=== PATIENT | female | born 1975 | race Caucasian/White ===

== ENCOUNTER 2016-03-29 00:17 | Day surgery (SDC) | payer MEDICARE ==
[2016-03-29] VITALS (11 sets, daily range): BP systolic 86–104; BP diastolic 54–61; PULSE 59–69; RESP 14–24; O2SAT 93–98
[~2016-03-29] VITALS: Ht 157.5 cm; Wt 74.0 kg
[~2016-03-29 00:17] MED LIST: BUPR100T7 PO; CALC-846 PO; CHOL500050 PO; FLUD0.1T PO; MIDO5TAB PO; MUPI15CR11 TOP; SENN1TAB90 PO; SEVE800T7 PO
[2016-03-29 07:44] LABS: Mean Corpuscular Volume 92.2 fL (81-100)
[2016-03-29 08:01] LABS: INR 0.94 ratio
[2016-03-29] MEDS ORDERED: CLON0.1T PO (08:09)
--- NOTE | 2016-03-29 08:09 | NUR ---
Admitted for a tunnel catheter today for dialysis access - pt does peritoneal and is slated for abdominal surgery - plan to do tunnel dialysis instead of peritoneal dialysis.
--- NOTE | 2016-03-29 11:51 | NUR ---
Recovery completed in [facility] post tunnel catheter - dressing changed prior to D/C - tunnel catheter site looked at by Dr Parham prior to D/C from [facility]. Ok to D/C home - no new orders.
--- NOTE | 2016-03-29 12:00 | DRSVH ---
PROCEDURE: CV TUNNEL CATH PLCMNT 1. Sonographic guidance for venous access. 2. Conscious sedation for 30 minutes. 3. Right internal jugular vein tunneled hemodialysis catheter placement. 4. Fluoroscopic guidance for catheter placement. INDICATIONS: ESRD TECHNIQUE: The indications, alternatives, benefits, risks, and complications of the procedure were e xplained to the patient and any family members present. Informed written consent was obtained and pl aced in the chart. The patient was brought to the angiography suite, and conscious sedation was admi nistered intravenously by prison staff, while continuous cardiorespiratory monitoring was pe rformed. Maximum sterile barrier technique was employed per standard protocol, including hand hygiene, cap, ma sk, sterile gown and gloves, and 2% chlorhexidine. Sterile ultrasound probe cover was also utilized. 1% lidocaine was used for local anaesthesia. Under sonographic guidance, the right internal jugular vein was accessed with a Micropuncture set. An 0.035J wire was advanced into the vena cava. Subcuta neous tunnel was created within the right anterior chest wall, through which a 14.5 Swedish double lum en tunneled hemodialysis catheter was advanced. Following sequential venotomy tract dilation, the ca theter was advanced through the peel-away sheath and the tip was placed at the cavoatrial junction. Peel-away sheath was removed. Adequate flow was obtained through both lumens of the catheter. The v enotomy was closed with Dermabond, and the catheter was fastened to the skin with Ticron. Both lumen s were flushed with heparinized saline. The patient tolerated the procedure without difficulty and was in stable condition at the conclusion of the procedure. COMPARISON: [facility], , CV TUNNEL CATH PLCMNT, 04/15/2015, 8:47. FINDINGS: The right internal jugular vein is patent by ultrasound. Fluoroscopic imaging demonstrates tip of th e catheter at the cavoatrial junction. IMPRESSION: Right internal jugular vein tunneled hemodialysis catheter placement using sonographic and fluoroscop ic guidance. Dictated by: Sherry Parham M.D. on 03/29/2016 at 11:58 Approved by: Sherry Parham M.D. on 03/29/2016 at 11:58
[2016-03-29] MEDS ORDERED: fentaNYL-PF 50 mCg/mL 2 mL Inj ONE (13:47)
[2016-03-29] MEDS ORDERED: Heparin 1,000 Unit/mL 10 mL Inj ONE (13:47)
[2016-03-29] MEDS ORDERED: CeFAZolin 2 Gm/50 mL D5W Duplex Bag IV ONE (13:48)
[2016-03-29] MEDS ORDERED: 0.9% Sodium Chloride 250 ML ONE (13:48)
[2016-07-07] MEDS ORDERED: BUPR100T15 PO (11:59)
[2016-07-07] MEDS ORDERED: CHOL500050 PO (12:01)
[2016-07-07] MEDS ORDERED: CALC-984 PO (12:01)
== END 2016-03-29 23:59 | disposition home or self-care (01) ==
LOC: SOUO 00:17
PROVIDERS: ATTEND Radiology Vascular & Interventional Radiology
DX: N18.6 End stage renal disease (principal); D63.1 Anemia in chronic kidney disease; Z99.2 Dependence on renal dialysis
CPT/HCPCS: 36415; 36558; 76937; 77001; 80048; 85027; 85610; 85730; C1769; C1887; J1644; J2250

== ENCOUNTER 2016-05-07 15:34 | Inpatient (IN) | payer MEDICARE ==
[~2016-05-07] VITALS: Ht 157.5 cm; Wt 70.6 kg
[~2016-05-07 15:34] MED LIST changes: -BUPR100T7 PO; +CLON0.1T PO
[2016-05-07 15:48] VITALS: BP 78/52; PULSE 134; RESP 20; O2SAT 98
[2016-05-07 19:51] VITALS: BP 89/54; PULSE 104; RESP 20; O2SAT 100
--- NOTE | 2016-05-07 20:12 | DRSVH ---
PROCEDURE: X-RAY CHEST ONE VIEW, PORTABLE ([id number]) INDICATIONS: Sepsis TECHNIQUE: One view of the chest was acquired. COMPARISON: [facility], XA, CV TUNNEL CATH PLCMNT, 03/29/2016, 9:40. FINDINGS: Surgical changes and devices: The tunneled hemodialysis catheter appears retracted from its initial p osition in with the tip in the right atrium. The tip now likely rests within the distal SVC are at th e cavoatrial junction. Lungs and pleura: No pleural effusions or pneumothorax. Lungs are clear. Mediastinum: Mediastinal contours appear normal. Heart size is normal. Bones and chest wall: No suspicious bony lesions. Overlying soft tissues appear unremarkable. IMPRESSION: 1. No acute cardiopulmonary findings. 2. Findings suspicious for retracted hemodialysis catheter. If there is a history of dialysis dysfunc tion, nonemergent repositioning of the catheter may be helpful. Dictated by: Sherry Parham M.D. on 05/07/2016 at 20:08 Approved by: Sherry Parham M.D. on 05/07/2016 at 20:10
[2016-05-07 20:31] LABS: BASOPHILS % (AUTO) 0.6 % (0-3); EOSINOPHILS % (AUTO) 1.9 % (0-5); MONOCYTES % (AUTO) 9.4 % (4-12); Mean Corpuscular Hemoglobin 28.7 pg (27.0-35.0); NEUTROPHILS % (AUTO) 70.4 % (40-74); Platelet Count 137 bil/L (150-400)
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
[2016-05-07 21:02] LABS: TROPONIN T < 0.010 ug/L (0.0-0.011)
[2016-05-07 21:09] LABS: Magnesium 1.5 mg/dL (1.6-2.6); Phosphorus 2.3 mg/dL (2.5-4.9)
[2016-05-07] MEDS ORDERED: cefTRIAXone 2,000 mg Inj IM ONE ×2 (21:55→22:00)
[2016-05-07] MEDS ORDERED: _HYDROcodone-APAP 7.5-325/15mL 1 mL Bottle PO PRN (21:55)
[2016-05-07 22:13] VITALS: BP 87/59; PULSE 103; RESP 20; O2SAT 99
[2016-05-07] MEDS ORDERED: BENZ-12 PO (22:37)
[2016-05-07] MEDS ORDERED: HYDR15SO8 PO (22:37)
[2016-05-07 22:44] VITALS: BP 85/46; PULSE 103; RESP 24; O2SAT 100
[2016-05-07 22:54] VITALS: BP 85/46; PULSE 103; RESP 24; O2SAT 100
[2016-05-07] MEDS ORDERED: Vancomycin Dose per Pharmacist XX ONE (23:00)
[2016-05-07] MEDS ORDERED: Vancomycin Inj 1,500 MG in 0.9% Sodium Chloride 500 ML IV ONE (23:05)
[2016-05-07] MEDS ORDERED: Alum-Mag Hydrox-Simeth 30 mL Suspension PO PRN (23:35)
[2016-05-07] MEDS ORDERED: Polyethylene Glycol (PEG) 17 Gm Powder PO PRN (23:35)
[2016-05-07 23:38] VITALS: BP 89/60; PULSE 110; RESP 16; O2SAT 100
[2016-05-08] VITALS (12 sets, daily range): BP systolic 79–103; BP diastolic 48–70; PULSE 85–110; RESP 15–20; O2SAT 93–98
[2016-05-08] MEDS: Albuterol-Ipratropium 3 mL Inhalation Solution NEB SCH ×6 (00:30→20:59)
[2016-05-08] MEDS ORDERED: 0.9% Sodium Chloride 1,000 ML IV ONE (00:50)
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
[2016-05-08] MEDS ORDERED: SEVE800T7 PO (01:32)
[2016-05-08] MEDS ORDERED: OXYC5CAP4 PO (01:32)
[2016-05-08] MEDS ORDERED: FLUD0.1T PO (01:32)
[2016-05-08 03:14] LABS: BASOPHILS % (AUTO) 0.4 % (0-3); EOSINOPHILS % (AUTO) 2.6 % (0-5); MONOCYTES % (AUTO) 8.2 % (4-12); Mean Corpuscular Hemoglobin 28.5 pg (27.0-35.0); Mean Corpuscular Volume 92.1 fL (81-100); Platelet Count 137 bil/L (150-400)
[2016-05-08 03:53] LABS: Magnesium 1.5 mg/dL (1.6-2.6); Phosphorus 2.3 mg/dL (2.5-4.9)
--- NOTE | 2016-05-08 04:55 | NUR ---
Admit Pt arrived to floor from ED via bed at approx. 0050 to room 2006; report received from ED RN. All belongings transferred with pt; home meds sent to pharmacy. Pt reports 3/10 MCKEON on arrival, denies interventions. Vancomycin infusing to PIV. Pt independent in room. Admit documentation and med rec complete. Pt denied information on advanced directive. VSS. Tele SR 90s-100s.
[2016-05-08] MEDS: Cefepime 1,000 MG in Dextrose 5% Minibag Plus 50 ML IV SCH (07:57)
[2016-05-08] MEDS ORDERED: Magnesium Sulf 2 Gm/50mL Water 2 GM in IV Premix 1 EACH IV ONE (08:25)
[2016-05-08] MEDS ORDERED: Azithromycin Inj 500 MG in Dextrose 5% w/Vial Mate 250 ML IV SCH (08:30)
[2016-05-08] MEDS ORDERED: Cefepime Inj 2 GM in IV Premix 1 EACH IV SCH (08:30)
[2016-05-08] MEDS: guaiFENesin DM 200-20 mg/10 mL Syrup PO PRN ×2 (11:26→20:10)
--- NOTE | 2016-05-08 11:46 | NUR ---
PAN explained and signed. Copy of PAN and Medicare self administered medications provided to pt.
--- NOTE | 2016-05-08 15:09 | NUR ---
Social Work Note: Initial Assessment Data& Assessment: EMR reviewed. SW met with pt at bedside to discuss discharge planning, SW role explained. Snow Ha is a 40 year old female under observation for fever and cough beginning today 05/08/2016. Pt has Medicare and [employer] Supplemental insurance coverage. Pt sees her pipe coverer Dr. Puente for primary care and has HD at [facility] on Tuesdays, and Saturdays. Pt lives in [place] with her , children and in laws and is independent at baseline. Pt does not use any DME and drives at baseline. Pt does not have a HH or SNF hx. Pt does not have LTC insurance or VA benefits. Pt declines DPOA paperwork at this time. Pt explained her plans to pick her up or her father in law when she is medically ready for discharge. Pt is independent in her room and denies any other needs at this time. SW provided phone number on pt whiteboard. No other discharge needs identified at this time. SW to continue to follow if any needs arise. Plan: Anticipated discharge home via POV when medically ready. Pt is independent in her room and denies any other needs at this time. No other discharge needs identified at this time. SW to continue to follow if any needs arise. IZA Ward Addendum: 05/08/16 at 1514 by DANIEL METCALF Amended: Links added.
[2016-05-08 15:42] LABS: APPEARANCE,URINE HAZY (CLEAR,HAZY); COLOR,URINE YELLOW (YELLOW); OCCULT BLOOD,URINE MODERATE (NEGATIVE); UROBILINOGEN,URINE NORMAL (NORMAL)
--- NOTE | 2016-05-08 16:10 | PCM.PNMED ---
Subjective Date of Service May 08, 2016 Subjective Patient complains of chills and nurse reports that her temperature is greater than 103F. Patient has no other symptoms other than appearing to not feel well and is quite restless. Exam Vital Signs Vital Sign - Last Date Time Temp Pulse Resp B/P Pulse Ox O2 Delivery O2 Flow Rate FiO2 05/08/16 14:00 110 20 93 Room Air 05/08/16 12:29 37.9 101/70 Intake and Output 05/07/16 05/07/16 05/08/16 Cumulative From/Thru 15:00 23:00 07:00 05/07/16 15:48 - 05/08/16 04:57 Intake Total 240 ml 240 ml Output Total 0 ml 0 ml Balance 240 ml 240 ml Intake Oral 240 ml 240 ml Output Urine Total 0 ml 0 ml # Bowel Movements 0 0 Exam General: Patient does not appear to be comfortable she is somewhat restless in bed and is complaining of chills. HEENT: Head is atraumatic and normocephalic. Eyes: Pupils are equally round and reactive to light and accommodation. Extraocular muscles are intact. Sclera are white, anicteric. Subconjunctival mucosa is pale. Ears and nose are unremarkable. Oropharynx: There is no mucosal lesions, there is no thrush, there is no pharyngitis. Mucosa is pale. Neck: Is supple, there are no nodes, or masses or tenderness. Chest: Is clear to auscultation and percussion. There are no rales, rhonchi, wheezes or rubs. Hemodialysis catheter site is unremarkable with no evidence of tunneled infection or cellulitis. Heart: Rate is slightly tachycardic, rhythm is regular. There is no murmur, rub or gallop. Abdomen: Good bowel sounds are present. Abdomen is soft, nontender, no organomegaly or masses were appreciated. There is a very small opening of the recent abdominal surgical incision. There is no purulent drainage no erythema. Extremities: Are symmetrical and well perfused. There is no edema, there is no cellulitis, no rash. Neurologic: There are no focal neurological deficits. Cranial nerves II through XII are intact. There are no sensory or motor deficits. Psychiatric: Patients mood is calm and shows no sign of agitation. Genital: Deferred Rectal: Deferred Lab and Diagnostics Result Diagram: 05/08/16 0240 05/08/16 0240 Microbiology Respiratory viral PCR studies are negative. Blood cultures are pending X-Rays, CTs and MRIs X-RAY CHEST ONE VIEW, PORTABLE IMPRESSION: 1. No acute cardiopulmonary findings. 2. Findings suspicious for retracted hemodialysis catheter. If there is a history of dialysis dysfunction, nonemergent repositioning of the catheter may be helpful. Dictated by: Sherry Parham M.D. on 05/07/2016 at 20:08 Approved by: Sherry Parham M.D. on 05/07/2016 at 20:10 Assessment & Plan Snow Ha is a 40 year old female with past medical history significant for ESRD thought to be due to ureteral reflux in childhood currently on hemodialysis who presents to the ED with 2 days of productive cough, chills, and myalgias. Admitted for possible influenza versus healthcare associated pneumonia. # Possible healthcare associated pneumonia, present on admission. Active. Patient with 2 day history of productive cough, myalgias, and chills currently on hemodialysis. - Respiratory PCR is negative. - Urine pneumonia and Legionella pending. - Blood, sputum, and urine cultures sent and pending - Pro calcitonin elevated at 7.37. - Chest x-ray showed no acute cardiopulmonary process. - Patient received IM dose of ceftriaxone and vancomycin in the ED. - Empiric antibiotics started: Vancomycin and cefepime and we will continue ending culture results. Will repeat blood cultures today due to persistent high fever with one set of cultures from her hemodialysis catheter. - Duo nebs every 4 hours - Supplemental oxygen as needed. - Repeat labs in the morning. # Possible influenza, present on admission. Active. - Rapid flu screen negative. Respiratory PCR negative. - Tamiflu started prior to PCR returning due to patient's symptoms and comorbidities. However, as the PCR is negative will discontinue Tamiflu - Supportive therapy as in #1. # End-stage renal disease on hemodialysis, present on admission. Active. Thought to be secondary to ureteral reflux in childhood. Patient on peritoneal dialysis since 2012. Recently switched to hemodialysis because of panniculectomy on 04/15/16. Right IJ tunneled catheter. Hemodialysis conducted Monday, , Monday. - Monitor electrolytes. - Card Folder is Dr. Luu - Continue home medications. - We will consult inpatient nephrology service and Dr. Woodard has seen patient today. # Acute on chronic anemia, present on admission. Active. Patient denies any source of bleeding. - Baseline hemoglobin appears to be around 10. Hemoglobin on admission 8.2. Patient received Aranesp yesterday with hemodialysis and Dr. Woodard does not recommend any transfusion at this time. - Stool occult blood pending. - Repeat CBC in the morning. # Hypomagnesemia -We will give 2 g of magnesium sulfate IV today # Morbid Obesity -Status post gastric bypass surgery -Status post panniculectomy last month on 04/15/2016. -We will need to monitor incision for any sign of infection. Disposition: Patient is likely to remain here for more than 2 midnights for evaluation and treatment of very high fevers. Pain Evaluation: Adequate Pain Control VTE Prophylaxis: Other (held due to hemoglobin of 8.2) VTE Mechanical Devices: Intermittant Pneumatic CD Resuscitation Status: CPR: Attempt Resuscitation Pleasant HopeRobert goldman MD May 08, 2016 16:10
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
[2016-05-08] MEDS ORDERED: Heparin 1,000 Unit/mL Inj IV ONE (16:45)
--- NOTE | 2016-05-08 19:18 | NUR ---
Fever Patient alert and oriented x3, HANNA, up SBA to BR. Reported MCKEON with coughing, Tessalon pearls and Robitussin administered with 5mg Roxicodone and 650mg Tylenol-- reported relief. Patient temperature ranged between 100-103.5F, 650 tylenol brought 103F back down to 100F. RA, No chest pain, no abdominal pain, patient reported malaise and nausea at 1840 to PHARM TECH --no antiemetics available, discussed with NOC DANICA Medina.
[2016-05-08] MEDS ORDERED: cefTRIAXone Inj 2,000 MG in Dextrose 5% Minibag Plus 50 ML IV SCH (22:00)
[2016-05-09] VITALS (15 sets, daily range): BP systolic 90–157; BP diastolic 57–74; PULSE 57–115; RESP 15–24; O2SAT 91–99
[2016-05-09] MEDS: Albuterol-Ipratropium 3 mL Inhalation Solution NEB SCH ×5 (00:40→20:03)
--- NOTE | 2016-05-09 02:52 | NUR ---
Renvela Pt requested to have a dose of Renvela post HS snack at 2029. Pt stated she always take this medication post meals. Provider order states TID wm. Pharmacy called, pt only took lunch and evening dose. Pharmacy stated she is able to have a dose post snack. Dose given.
[2016-05-09 03:44] LABS: BASOPHILS % (AUTO) 0.3 % (0-3); EOSINOPHILS % (AUTO) 1.6 % (0-5); MONOCYTES % (AUTO) 9.6 % (4-12); Mean Corpuscular Hemoglobin 27.8 pg (27.0-35.0); Mean Corpuscular Volume 91.7 fL (81-100); NEUTROPHILS % (AUTO) 72.9 % (40-74); Platelet Count 103 bil/L (150-400)
--- NOTE | 2016-05-09 03:57 | NUR ---
Fibrile At 0000 vital signs. Pt had a temperature of 38.4. Pt given PRN tylenol 650mg. At 0355, temperature at 36.9. Continue to monitor.
--- NOTE | 2016-05-09 04:41 | PCM.PNMED ---
Subjective Date of Service May 09, 2016 Subjective Nurse called with Hgb 6.4 Nurse reporting the patient is asymptomatic. Nephrology recommended avoiding transfusion as the patient was a kidney transplant candidate Will pass the decision for transfusion to the day shift as patient does not appear to need emergent transfusion at this time Justin Blevins MD May 09, 2016 04:40
[2016-05-09 04:43] LABS: Magnesium 2.1 mg/dL (1.6-2.6); Phosphorus 3.2 mg/dL (2.5-4.9)
[2016-05-09] MEDS ORDERED: 0.9% Sodium Chloride 250 ML ONE (08:51)
[2016-05-09] MEDS: guaiFENesin DM 200-20 mg/10 mL Syrup PO PRN ×2 (09:20→20:29)
[2016-05-09] MEDS: Cefepime 1,000 MG in Dextrose 5% Minibag Plus 50 ML IV SCH (09:20)
[2016-05-09] MEDS ORDERED: diphenhydrAMINE 25 mg Capsule PO ONE (11:25)
--- NOTE | 2016-05-09 12:54 | NUR ---
Case Management: [facility] delivered and signed. Original placed in chart. Copy at bedside. Denise Cifuentes RN
[2016-05-09 13:16] LABS: Unsaturated Iron Binding 132.5 ug/dL
[2016-05-09] MEDS: Vancomycin Dose per Pharmacist XX SCH (13:45)
[2016-05-09] MEDS ORDERED: Vancomycin Serum Trough XX ONE (14:10)
--- NOTE | 2016-05-09 15:58 | PCM.PHAPRO ---
Progress Date of Service: May 09, 2016 Cough and flulike symptoms Vancomycin per Pharmacy: Indication: Possible bacteremia vs pneumonia- pt with fevers (103 deg), myalgias, cough Goal Vancomycin Level: 15-20 Age: 40 yo Weight: 71.2 kg Labs: WBC: 3.7 SrCr: N/A Procalcitonin: 7.4->9.5 (renal impairment possibly confounding) Micro: Blood cultures pending, MRSA nasal screen pending, culture from dialysis catheter tip pending Est CrCl: ~ Dialysis on //Mon Vancomycin Level: 21.5 mg/dL following vancomycin 1500 mg IV x 1 on 05/07 Assessment: Vancomycin level minimally supra-therapeutic. No further vancomycin today. Plan: Vancomycin 500 mg IV x 1 post dialysis on 05/10/16. Vancomycin random level with AM labs on 05/12/16. Pharmacy to continue to monitor antibiotic therapy. Thank You, Thuy Castaneda, Pharm D. Thuy Castaneda May 09, 2016 15:58
--- NOTE | 2016-05-09 17:07 | PCM.PNMED ---
Subjective Date of Service May 09, 2016 Subjective Patient is refusing blood transfusion if she hopes to be kidney transplant candidate soon. She states that she is asymptomatic and does not want a transfusion nor does she need a transfusion at this time. She has no chest pain , no shortness of breath, no dyspnea on exertion, and no other complaints. Exam Vital Signs Vital Sign - Last Date Time Temp Pulse Resp B/P Pulse Ox O2 Delivery O2 Flow Rate FiO2 05/09/16 15:39 91 16 99 Room Air 05/09/16 12:18 36.9 90/57 Intake and Output 05/08/16 05/08/16 05/09/16 Cumulative From/Thru 15:00 23:00 07:00 05/07/16 15:48 - 05/09/16 06:04 Intake Total 2367 ml 400 ml 3007 ml Output Total 125 ml 0 ml 125 ml Balance 2242 ml 400 ml 2882 ml Intake Oral 800 ml 400 ml 1440 ml IV Total 1567 ml 1567 ml Output Urine Total 125 ml 0 ml 125 ml # Bowel Movements 0 0 Exam General: Patient appears more comfortable today and less agitated.. HEENT: Head is atraumatic and normocephalic. Eyes: Pupils are equally round and reactive to light and accommodation. Extraocular muscles are intact. Sclera are white, anicteric. Subconjunctival mucosa is pale. Ears and nose are unremarkable. Oropharynx: There is no mucosal lesions, there is no thrush, there is no pharyngitis. Mucosa is pale. Neck: Is supple, there are no nodes, or masses or tenderness. Chest: Is clear to auscultation and percussion. There are no rales, rhonchi, wheezes or rubs. Hemodialysis catheter site itself is unremarkable. However, just above that at potentially the right subclavian vein insertion site incision and some. Drainage previously and now has some scab formation over it. Band-Aid has been removed. There is no evidence of cellulitis around this around the Tylenol of the catheter.. Heart: Rate is slightly tachycardic, rhythm is regular. There is no murmur, rub or gallop. Abdomen: Good bowel sounds are present. Abdomen is soft, nontender, no organomegaly or masses were appreciated. There is a very small opening of the recent abdominal surgical incision. This is very superficial There is no purulent drainage and no erythema. Extremities: Are symmetrical and well perfused. There is no edema, there is no cellulitis, no rash. Neurologic: There are no focal neurological deficits. Cranial nerves II through XII are intact. There are no sensory or motor deficits. Psychiatric: Patients mood is calm and shows no sign of agitation. Genital: Deferred Rectal: Deferred Lab and Diagnostics Result Diagram: 05/09/16 1548 05/09/16 0303 Microbiology Respiratory viral PCR studies are negative. Blood cultures are pending Name: SNOW ROMERO Age/Sex: 40/F Attend Dr: Justin Blevins MD Acct: [id number] Unit: [id number] Status: ADM IN Location: [facility] 2005-03 Re05/08/16 Disch: Specimen: [id number] Collected: 05/08/16 Status: RES Req#: [id number] Received: 05/09/16 Source: CATH SITE Sp Desc : Subm Dr: Robert Huizar MD Ordered: CS & JAMES & RUBEN Comments: Collected by Nurse/Unit? Y/N Y Comment: Hemodialysis catheter site Procedure Result Verified Site Microbiology CRUZ GS (GRAM STAIN) Final 05/09/16-1044 GRAM STAIN RESULT NO POLYS NO ORGANISMS SEEN RARE EPITHELIAL CELLS X-Rays, CTs and MRIs X-RAY CHEST ONE VIEW, PORTABLE IMPRESSION: 1. No acute cardiopulmonary findings. 2. Findings suspicious for retracted hemodialysis catheter. If there is a history of dialysis dysfunction, nonemergent repositioning of the catheter may be helpful. Dictated by: Sherry Parhma M.D. on 05/07/2016 at 20:08 Approved by: Sherry Parham M.D. on 05/07/2016 at 20:10 Assessment & Plan Snow Romero is a 40 year old female with past medical history significant for ESRD thought to be due to ureteral reflux in childhood currently on hemodialysis who presents to the ED with 2 days of productive cough, chills, and myalgias. Admitted for possible influenza versus healthcare associated pneumonia. # Possible healthcare associated pneumonia, present on admission. Active. Patient with 2 day history of productive cough, myalgias, and chills currently on hemodialysis. - Respiratory PCR is negative. - Urine L. pneumonia antigen is pending and Strep pneumonia antigen is negative. - Blood, sputum, and urine cultures sent and pending - Pro calcitonin elevated at 7.37. - Chest x-ray showed no acute cardiopulmonary process. - Patient received IM dose of ceftriaxone and vancomycin in the ED. - Empiric antibiotics started: We will continue Vancomycin and cefepime pending culture results. We repeated blood cultures yesterday due to persistent high fever with one set of cultures from her hemodialysis catheter. - Duo nebs every 4 hours - Supplemental oxygen as needed. - Repeat labs in the morning. # Possible influenza, present on admission. Active. - Rapid flu screen negative. Respiratory PCR negative. - Tamiflu started prior to PCR returning due to patient's symptoms and comorbidities. However, as the PCR is negative will discontinue Tamiflu - Continue supportive therapy. # End-stage renal disease on hemodialysis, present on admission. Active. Thought to be secondary to ureteral reflux in childhood. Patient on peritoneal dialysis since 2012. Recently switched to hemodialysis because of panniculectomy on 04/15/16. Right IJ tunneled catheter placed. Hemodialysis conducted Monday, , Monday. - Monitor electrolytes. - Delivery Specialist is Dr. Luu - Continue home medications. - We have consult inpatient nephrology service and Dr. Woodard has seen the patient. Patient likely will receive hemodialysis tomorrow on Monday, 2016. # Acute on chronic anemia, present on admission. Active. Patient denies any source of bleeding. - Baseline hemoglobin appears to be around 10. Hemoglobin on admission 8.2. Patient received Aranesp 05/07/[address] Woodard does not recommend any transfusion at this time. - Stool occult blood pending. - Repeat CBC in the morning. # Hypomagnesemia -We gave 2 g of magnesium sulfate IV on 05/08/2016 # Morbid Obesity -Status post gastric bypass surgery -Status post panniculectomy last month on 04/15/2016. -We will need to monitor incision for any sign of infection. Disposition: Patient is still having fevers and will continue IV antibiotics and await culture results. Plan for hemodialysis tomorrow. Pain Evaluation: Adequate Pain Control VTE Prophylaxis: Other (held due to hemoglobin of 8.2) VTE Mechanical Devices: Intermittant Pneumatic CD Resuscitation Status: CPR: Attempt Resuscitation HavreRobert MD May 09, 2016 17:07
--- NOTE | 2016-05-09 17:09 | PCM.PNMED ---
Subjective Date of Service May 09, 2016 Subjective Patient seen today in her room. It is concerning that her hemoglobin continues to drop to a level today of 6.4. Because she is being worked up for transplant she is rightfully concerned about avoiding any type of antigenic stimulation such as a blood transfusion unless absolutely necessary. I have contacted the transplant wet machine cutter at [facility] and he agreed that in light of he rapidly dropping hemoglobin a single unit of PRBCs is indicated. I am concerned as with a hemoglobin of 6.4 she has no reserve in case she has a new source of bleeding. In discussing the case with the patient states that several months ago she was found to have several ulcers in her stomach. She had a gastric bypass surgery several years ago and has lost a considerable amount of weight. Last month she underwent a panniculectomy and this is been healing well. She denies any pyrosis, melena, or frequent use of nonsteroidal anti-inflammatories. She does feel quite fatigued with even the most minimal effort and states that she feels like she "cannot take a deep breath". I will go ahead and give her 1 unit of leukocyte poor red blood cells today and I would like to have GI take a look at her and see if she has an identifiable source of a low hemoglobin. I also obtained an iron /TIBC and her transferrin saturation is 17% and initial dose of intravenous iron. Exam Vital Signs Vital Sign - Last Date Time Temp Pulse Resp B/P Pulse Ox O2 Delivery O2 Flow Rate FiO2 05/09/16 16:42 36.7 115 16 94/57 99 Room Air Intake and Output 05/08/16 05/08/16 05/09/16 Cumulative From/Thru 15:00 23:00 07:00 05/07/16 15:48 - 05/09/16 06:04 Intake Total 2367 ml 400 ml 3007 ml Output Total 125 ml 0 ml 125 ml Balance 2242 ml 400 ml 2882 ml Intake Oral 800 ml 400 ml 1440 ml IV Total 1567 ml 1567 ml Output Urine Total 125 ml 0 ml 125 ml # Bowel Movements 0 0 Exam Patient has a sallow complexion and markedly pale sclera. Neck is supple without adenopathy thyromegaly or jugular venous distention. Lungs were clear to auscultation. Heart was regular rhythmical somewhat tachycardia. Abdomen is soft with diminished bowel sounds. There is no tenderness noted. Extremities do not show any evidence of any clubbing cyanosis or edema. Lab and Diagnostics Result Diagram: 05/09/16 1548 05/09/16 0302 Microbiology Respiratory viral PCR studies are negative. Blood cultures are pending X-Rays, CTs and MRIs X-RAY CHEST ONE VIEW, PORTABLE IMPRESSION: 1. No acute cardiopulmonary findings. 2. Findings suspicious for retracted hemodialysis catheter. If there is a history of dialysis dysfunction, nonemergent repositioning of the catheter may be helpful. Dictated by: Sherry Parham M.D. on 05/07/2016 at 20:08 Approved by: Sherry Parham M.D. on 05/07/2016 at 20:10 Assessment & Plan Impression #1 end-stage renal disease dialysis dependent #2 acute anemia with possible GI blood source #3 chronic anemia secondary to end-stage renal disease #4 hypertension with hypertensive heart disease and hypertensive nephrosclerosis Recommendations #1 as noted above I will go ahead and give her 1 unit of leukocyte poor packed cells. I spoke with Dr. Real from and he will se her tomorrow AM. I will also give her a dose of intravenous iron with dialysis tomorrow. VTE Prophylaxis: Other (held due to hemoglobin of 8.2) VTE Mechanical Devices: Intermittant Pneumatic CD Resuscitation Status: CPR: Attempt Resuscitation Time spent Total time inclusing 2 visits with the patient,3 phone conversations with [facility], the floor resident and Dr. Real 1 hour and 20 min. Valeriano Argueta DO May 09, 2016 17:09
--- NOTE | 2016-05-09 18:49 | NUR ---
Respiratory/MCKEON/Cough Patient alert and oriented x3, up SBA in the room, saline locked, tolerating PO intake well but has decreased appetite. No n/v, BP stable, Afebrile. Patient reported some concern with constipation -- patient aware she has Miralax and Senna PRN, none requested by patient this shift. At approx 1500, patient reported to INSTRUMENT REPAIRER "shallow and fast" respiratory rate. Patient denied SOB, stating "I just feel like I can't take a deep breath" -- denies anxiety, reports mild SOB at rest that she states she did not have yesterday. Patient has persistent dry cough throughout shift, Tessalon bianca and Robitussin given x1, tylenol given x1, reports moderate relief. Patient develops MCKEON with persistent cough, no sputum.
[2016-05-09] MEDS ORDERED: diphenhydrAMINE 25 mg Capsule PO PRN (23:55)
[2016-05-10] VITALS (16 sets, daily range): BP systolic 90–130; BP diastolic 61–87; PULSE 76–95; RESP 16–20; O2SAT 93–99
[2016-05-10] MEDS: Albuterol-Ipratropium 3 mL Inhalation Solution NEB SCH ×7 (00:01→23:09)
[2016-05-10] MEDS ORDERED: 0.9% Sodium Chloride 250 ML ONE (01:15)
--- NOTE | 2016-05-10 05:25 | NUR ---
Blood transfusion Tolerated blood transfusion without problems. Has been afebrile this shift. C/o headache and cough at start of shift. Relieved with cough meds and pain meds. No further complaints.
[2016-05-10 06:00] LABS: BASOPHILS % (AUTO) 0.3 % (0-3); EOSINOPHILS % (AUTO) 10.8 % (0-5); MONOCYTES % (AUTO) 10.3 % (4-12); Mean Corpuscular Hemoglobin 28.6 pg (27.0-35.0); Mean Corpuscular Volume 91.4 fL (81-100); NEUTROPHILS % (AUTO) 52.9 % (40-74); Platelet Count 115 bil/L (150-400)
[2016-05-10] MEDS: Vancomycin Dose per Pharmacist XX SCH (08:30)
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
--- NOTE | 2016-05-10 14:00 | PCM.PNMED ---
Subjective Date of Service May 10, 2016 Subjective Patient feels a bit better after receiving a unit of blood. Her hemoglobin today has risen to 7.3. She looks more comfortable than his has less conversational dyspnea. She denies any chest pain or lower extremity edema. Her appetite is fair. Creatinine 10.8, -11 was 23. Exam Vital Signs Vital Sign - Last Date Time Temp Pulse Resp B/P Pulse Ox O2 Delivery O2 Flow Rate FiO2 05/10/16 12:06 36.9 95 18 102/61 97 Room Air Intake and Output 05/09/16 05/09/16 05/10/16 Cumulative From/Thru 15:00 23:00 07:00 05/07/16 15:48 - 05/10/16 05:14 Intake Total 880 ml 372 ml 4259 ml Output Total 300 ml 0 ml 425 ml Balance 580 ml 372 ml 3834 ml Intake Oral 880 ml 0 ml 2320 ml IV Total 25 ml 1592 ml Packed Cells 347 ml 347 ml Output Urine Total 300 ml 0 ml 425 ml # Bowel Movements 0 0 Exam Sclera are pale. Neck is supple without adenopathy thyromegaly or jugular venous distention. Lungs are clear to auscultation. Heart is regular rhythmic with a soft systolic murmur. Soft without any tenderness or rebound guarding masses or hepatosplenomegaly. 70/20 evidence of any clubbing cyanosis or edema. Lab and Diagnostics Result Diagram: 05/10/1653605/10/16536 Microbiology Respiratory viral PCR studies are negative. Blood cultures are pending Name: ARLENE ROMERO Age/Sex: 40/F Attend Dr: Justin Blevins MD Acct: [id number] Unit: [id number] Status: ADM IN Location: [facility] 2005-03 Re05/08/16 Disch: Specimen: [id number] Collected: 05/08/16 Status: RES Req#: [id number] Received: 05/09/16 Source: CATH SITE Sp Desc : Subm Dr: Robert Huizar MD Ordered: CS & ANAC & GS Comments: Collected by Nurse/Unit? Y/N Y Comment: Hemodialysis catheter site Procedure Result Verified Site Microbiology [facility] GS (GRAM STAIN) Final 05/09/16 GRAM STAIN RESULT NO POLYS NO ORGANISMS SEEN RARE EPITHELIAL CELLS X-Rays, CTs and MRIs X-RAY CHEST ONE VIEW, PORTABLE IMPRESSION: 1. No acute cardiopulmonary findings. 2. Findings suspicious for retracted hemodialysis catheter. If there is a history of dialysis dysfunction, nonemergent repositioning of the catheter may be helpful. Dictated by: Sherry Parham M.D. on 05/07/2016 at 20:08 Approved by: Sherry Parham M.D. on 05/07/2016 at 20:10 Assessment & Plan Impression #1 end-stage renal disease dialysis dependent #2 acute anemia with possible GI blood source #3 chronic anemia secondary to end-stage renal disease #4 hypertension with hypertensive heart disease and hypertensive nephrosclerosis Recommendations #1 patient was seen in her room and is currently being dialyzed for 4 hours on a revaclear max dialyzer, 3 potassium bath, no heparin, 2-3 L of fluid removed and will give her 60 mg of Aranesp. VTE Prophylaxis: Other (held due to hemoglobin of 8.2) VTE Mechanical Devices: Intermittant Pneumatic CD Resuscitation Status: CPR: Attempt Resuscitation Valeriano Argueta DO May 10, 2016 14:00
--- NOTE | 2016-05-10 15:46 | NUR ---
Social Work Note: Continued Discharge Planning Data& Assessment: Per MD, pt is not medically ready for discharge at this time. SW met with pt at bedside to confirm discharge plan and assess for any unmet needs. Pt has a colonoscopy scheduled for tomorrow. Pt is hopeful to be discharged in the next 1-2 days. Pt confirmed plan to return home when medically ready via POV. Pt denies any other needs at this time. SW to continue to follow if any needs arise. Plan: Anticipated discharge home via POV when medically ready. Pt denies any other needs at this time. SW to continue to follow if any needs arise. IZA Ward
--- NOTE | 2016-05-10 15:48 | NUR ---
NUTRITION ASSESSMENT: ASSESS: Pt is a 40yo F admitted for possible influenza and pneumonia. Pt has ESRD and is receiving dialysis. Nephrology is following. Pt had gastric bypass surgery in 2014. She reported that she has intentionally lost ~95lbs x2 years. She reported eating smaller, more frequent meals and always stops eating when she gets full. She reported that she has never had to follow the renal diet. Her K, phos and na are all wnl. She is on CL diet today in preparation for colonoscopy tomorrow for possible GI bleed. Prior to CL diet order she was on a General diet. Pt reported having an appetite but she just doesn't like the hospital food. She typically will drink Premier protein shakes and protein bars when she is at home. PMHx: ESRD, Anemia, GERD, constipation, Gastric bypass surgery in 2014, panniculectomy 04/15/2016 DIET: CL, PO 25-90% LABS: Reviewed. Bun 49, Propellant Assembler 10.82, Ca 6.7, Alb 3.2 MEDICATIONS: Reviewed. Senna, Vancomycin NUTRITION FOCUSED PHYSICAL ASSESSMENT: GI symptoms / stool: 0 BM, pt has chronic constipation, receiving Senna Wolfgang: 18, Skin Integrity: no major issues, pt with loose skin on arms d/t wt loss. ANTHROPOMETRICS: Current Wt: 71.9kg, BMI:29kg/m2, Admit weight: 70.5kg. Pt has intentionally lost ~95lbs x2 years s/p gastric bypass surgery. IBW: 50kg ESTIMATED NEEDS: Dialysis Calories: 2130-2490kcal/day (30-35kcal/kg) Protein: 85-140g/day (1.2-2.0g/kg) NUTRITION DIAGNOSIS: 1) Increased nutrient needs related to ESRD as evidence by pt on chronic dialysis INTERVENTION: 1) Discussed importance of getting enough protein while on dialysis (pt has never followed renal diet, and labs are wnl) 2) Encourage small frequent meals and once diet is advanced from CL diet, encouraged pt to have family bring in premier protein shakes to drink per pt preference (she does not like nepro) 3) Will send Gelatein on all trays per pt preference to help increase protein intake MONITOR/EVALUATE: PO intake, diet advance, GI, labs, wt, supps ok?, POC, nutrition status. Will continue to monitor per moderate nutrition risk guidelines.
--- NOTE | 2016-05-10 16:17 | NUR ---
Dialysis note 4 hr HD tx. 2000ml net UF removed. UF rate adjusted for BP stability. SBP in the 80's-100's. Off BP 112/67 HR 84. QB 500 thru R tunn catheter. See DTR for complete vitals. Pt rested comfortably thru tx. Catheter exit site care per protocol/dwelled with 1000/1 U Heparin and secured.
[2016-05-10] MEDS ORDERED: VANCOMYCIN IV ONE (17:00)
[2016-05-10] MEDS ORDERED: Vancomycin Inj 500 MG in 0.9% Sodium Chloride 100 ML IV ONE (17:00)
[2016-05-10] MEDS ORDERED: PEG/Electrolytes 4,000 mL Solution PO SCH (18:30)
[2016-05-10] MEDS: Cefepime 1,000 MG in Dextrose 5% Minibag Plus 50 ML IV SCH (18:31)
--- NOTE | 2016-05-10 21:52 | PCM.PNMED ---
Subjective Date of Service May 10, 2016 Subjective Patient has no further fever. She has no further chills. She has no nausea, or vomiting, or diarrhea. Exam Vital Signs Vital Sign - Last Date Time Temp Pulse Resp B/P Pulse Ox O2 Delivery O2 Flow Rate FiO2 05/10/16 19:59 37.1 87 20 124/78 97 Room Air Intake and Output 05/09/16 05/09/16 05/10/16 Cumulative From/Thru 15:00 23:00 07:00 05/07/16 15:48 - 05/10/16 05:14 Intake Total 880 ml 372 ml 4259 ml Output Total 300 ml 0 ml 425 ml Balance 580 ml 372 ml 3834 ml Intake Oral 880 ml 0 ml 2320 ml IV Total 25 ml 1592 ml Packed Cells 347 ml 347 ml Output Urine Total 300 ml 0 ml 425 ml # Bowel Movements 0 0 Exam General: Patient was seen on hemodialysis and appears quite comfortable... HEENT: Head is atraumatic and normocephalic. Eyes: Pupils are equally round and reactive to light and accommodation. Extraocular muscles are intact. Sclera are white, anicteric. Subconjunctival mucosa is pale. Ears and nose are unremarkable. Oropharynx: There is no mucosal lesions, there is no thrush, there is no pharyngitis. Mucosa is pale. Neck: Is supple, there are no nodes, or masses or tenderness. Chest: Is clear to auscultation and percussion. There are no rales, rhonchi, wheezes or rubs. Hemodialysis catheter site itself is unremarkable. However, just above that at potentially the right subclavian vein insertion site incision and some scab formation over it. Band-Aid has been removed. There is no evidence of cellulitis around this site, or around the insertion site of the catheter.. Heart: Rate is slightly tachycardic, rhythm is regular. There is no murmur, rub or gallop. Abdomen: Good bowel sounds are present. Abdomen is soft, nontender, no organomegaly or masses were appreciated. There is a very small opening of the recent abdominal surgical incision. This is very superficial There is no purulent drainage and no erythema. Extremities: Are symmetrical and well perfused. There is no edema, there is no cellulitis, no rash. Neurologic: There are no focal neurological deficits. Cranial nerves II through XII are intact. There are no sensory or motor deficits. Psychiatric: Patients mood is calm and she shows no sign of agitation. Genital: Deferred Rectal: Deferred Lab and Diagnostics Result Diagram: 05/10/1653605/10/16536 Microbiology Respiratory viral PCR studies are negative. Blood cultures are pending Name: SNOW ROMERO Age/Sex: 40/F Attend Dr: Justin Blevins MD Acct: [id number] Unit: [id number] Status: ADM IN Location: [facility] 2005-03 Re05/08/16 Disch: Specimen: [id number] Collected: 05/08/16 Status: RES Req#: [id number] Received: 05/09/16 Source: CATH SITE Sp Desc : Subm Dr: Robert Huizar MD Ordered: CS & ANAC & GS Comments: Collected by Nurse/Unit? Y/N Y Comment: Hemodialysis catheter site Procedure Result Verified Site Microbiology [facility] GS (GRAM STAIN) Final 05/09/16-1044 GRAM STAIN RESULT NO POLYS NO ORGANISMS SEEN RARE EPITHELIAL CELLS X-Rays, CTs and MRIs X-RAY CHEST ONE VIEW, PORTABLE IMPRESSION: 1. No acute cardiopulmonary findings. 2. Findings suspicious for retracted hemodialysis catheter. If there is a history of dialysis dysfunction, nonemergent repositioning of the catheter may be helpful. Dictated by: Sherry Parham M.D. on 05/07/2016 at 20:08 Approved by: Sherry Parham M.D. on 05/07/2016 at 20:10 Assessment & Plan Snow Romero is a 40 year old female with past medical history significant for ESRD thought to be due to ureteral reflux in childhood currently on hemodialysis who presents to the ED with 2 days of productive cough, chills, and myalgias. Admitted for possible influenza versus healthcare associated pneumonia. # Possible healthcare associated pneumonia, present on admission. Active. Patient with 2 day history of productive cough, myalgias, and chills currently on hemodialysis. - Respiratory PCR is negative. - Urine L. pneumonia antigen is pending and Strep pneumonia antigen is negative. - Blood, sputum, and urine cultures sent and are unrevealing so far - Pro calcitonin elevated at 7.37 on admission. - Chest x-ray showed no acute cardiopulmonary process. - Patient received IM dose of ceftriaxone and vancomycin in the ED. - Empiric antibiotics started: We will continue Vancomycin and cefepime pending culture results. We repeated blood cultures yesterday due to persistent high fever with one set of cultures from her hemodialysis catheter. - Duo nebs every 4 hours - Supplemental oxygen as needed. - Repeat labs in the morning. # Possible influenza, present on admission. Active. - Rapid flu screen negative. Respiratory PCR negative. - Tamiflu started prior to PCR returning due to patient's symptoms and comorbidities. However, as the PCR is negative will discontinue Tamiflu - Continue supportive therapy. # End-stage renal disease on hemodialysis, present on admission. Active. Patient is currently being dialyzed for 4 hours on a revaclear max dialyzer, 3 potassium bath, no heparin, 2-3 L of fluid removed. Thought to be secondary to ureteral reflux in childhood. Patient on peritoneal dialysis since 2012. Recently switched to hemodialysis because of panniculectomy on 04/15/16. Right IJ tunneled catheter placed. Hemodialysis conducted Monday, , Monday. - Monitor electrolytes. - Fibre Cement [place] is Dr. Luu - Continue home medications. - We have consult inpatient nephrology service and Dr Argueta's help. # Acute on chronic anemia, present on admission. Active. Patient denies any source of bleeding. - Baseline hemoglobin appears to be around 10. Hemoglobin on admission 8.2. Patient received Aranesp 05/07/2016 with hemodialysis. She received another 60 mg of Aranesp with dialysis today - Patient received 1 unit of leuko-poor packed red blood cells - Appreciate Dr. Reymundo Real's GI consult and patient is to have an EGD and colonoscopy tomorrow. # Hypomagnesemia -We gave 2 g of magnesium sulfate IV on 05/08/2016 # Morbid Obesity -Status post gastric bypass surgery -Status post panniculectomy last month on 04/15/2016. -We will need to monitor incision for any sign of infection. Disposition: Patient to continue on IV antibiotics and will monitor for further fevers. Due to anemia appreciate Dr. Reymundo Real's consult and patient is to go for EGD and colonoscopy tomorrow. Pain Evaluation: Adequate Pain Control VTE Prophylaxis: Other (held due to hemoglobin of 8.2) VTE Mechanical Devices: Intermittant Pneumatic CD Resuscitation Status: CPR: Attempt Resuscitation Robert Huizar MD May 10, 2016 21:52
[2016-05-10] MEDS: Pantoprazole 4 mg/mL 10 mL Inj IVPUSH SCH (23:12)
[2016-05-11] VITALS (12 sets, daily range): BP systolic 73–119; BP diastolic 46–79; PULSE 74–97; RESP 12–20; O2SAT 93–99
[2016-05-11 03:47] LABS: BASOPHILS % (AUTO) 0.3 % (0-3); EOSINOPHILS % (AUTO) 9.5 % (0-5); MONOCYTES % (AUTO) 12.5 % (4-12); Mean Corpuscular Hemoglobin 28.9 pg (27.0-35.0); Mean Corpuscular Volume 91.5 fL (81-100); NEUTROPHILS % (AUTO) 55.1 % (40-74); Platelet Count 138 bil/L (150-400)
--- NOTE | 2016-05-11 06:36 | NUR ---
Colyte/Urine Test Pt encouraged throughout night to drink colyte in preparation for procedure today. Pt able to finish this around 0330. Pt instructed to stay NPO after this, pt had clear liquid diet before that. Pt informed of order to have urine sent for test, pt refused w/ concerns for cost and stated she had her tubes tied as well as surgery last month and has not been sexually active since. Pt preferred to speak to physician in am before having urine test.
[2016-05-11] MEDS: Vancomycin Dose per Pharmacist XX SCH (08:30)
[2016-05-11] MEDS: Pantoprazole 4 mg/mL 10 mL Inj IVPUSH SCH (08:36)
[2016-05-11] MEDS ORDERED: 0.9% Sodium Chloride 250 ML ONE (08:54)
[2016-05-11] MEDS: Cefepime 1,000 MG in Dextrose 5% Minibag Plus 50 ML IV SCH (08:58)
[2016-05-11] MEDS: Lactated Ringer's 1,000 ML IV ONE ×2 (10:58→11:05)
--- NOTE | 2016-05-11 11:14 | PCM.HPANE ---
Patient Data Surgeon Admitting Provider:Justin Blevins MD Attending Provider:Justin Blevins MD Primary Care Physician:Cedrick Hines MD Other Provider: Reason for Visit Fever,Cough Ht/WT & BMI Height (Feet): 5 Height (Inches): 2.00 Weight (Kilograms): 70.600 Body Mass Index 28.00 Allergies Coded Allergies: gentamicin (Verified Allergy, Severe, SPECIFICIALLY LISTED FROM 08/17 CREAM...RASH, 03/29/16) Past Anesthesia History Anesthesia History: Denies:: Abnormal Airway, Anesthesia Reactions, Difficult Intubation, Fam Anesthesia Reaction, Fam Malignant Hypertherm, Malignant Hyperthermia Diabetes History Hx Diabetes?: No MRSA MRSA: No Medications Active Scripts Hydrocodone-Acetaminophen 7.5-325/15 mL 15 Ml Solution5-7.5 Ml PO Q4 PRN For Cough #100 ML Ref 0 Prov:Donato Al MD 05/07/16 Benzonatate (Tessalon Perle)100 Mg [id number] Mg PO TID PRN For Cough #30 CAPSULE Ref 1 Prov:Donato Al MD 05/07/16 Reported Medications oxyCODONE 5 Mg Kcnsinr50 Mg PO Q4H PRN For Pain Ref 0 05/08/16 Sevelamer Carbonate (Renvela)800 Mg Tablet1,600 Mg PO TIDWM 90 Days 05/08/16 Fludrocortisone Acetate 0.1 Mg Tablet0.2 Mg PO UD PRN For Hypotension 05/08/16 Sennosides/Docusate Sodium (Senna-Docusate Sodium Tablet)1 Each Tablet1-2 Each PO DAILY 03/25/16 Cholecalciferol (Vitamin D3) (Vitamin D)50,000 Unit Xydbtck65,000 Unit PO , Mon,Sun 03/25/16 Midodrine 5 Mg Tablet2 Tab PO TID PRN bp 10/18/14 Calcium Carbonate/Mag Hydrox (Antacid Chewable Tablet)1 Each Tab.[email or web address] Each PO DAILY takes tums with meals for a total of 8-10 a day with meals and 4 tablets at bedtime 10/18/14 Discontinued Reported Medications Clonidine 0.1 Mg Tablet0.1 Mg PO HS Ref 0 03/29/16 Fludrocortisone Acetate 0.1 Mg Tablet0.2 Mg PO DAILY Ref 0 03/25/16 Mupirocin Calcium (Mupirocin Cream)15 Gm Cream..g.1 Appl TOP With every drsg chg #1 TUBE Ref 0 03/25/16 Sevelamer Carbonate (Renvela)800 Mg Tablet3,200 Mg PO TIDWM 90 Days And 1 tablet with snacks 12/13/15 History History of ENT Problems?: No HEENT History: Positive for:: Hearing Problem Denies:: Abnormal Airway Cataracts Difficult Intubation Dysphagia Glaucoma Sinus Problem TMJ Hx of Heart Problems?: No Cardiovascular History: Denies:: AICD Atrial Fibrillation Cardiac Surgery Chest Pain Congestive Heart Failure Edema Heart Murmur Hypertension Irregular Heartbeat Pacemaker Thrombophlebitis Hx of Respiratory Problem?: No Respiratory History: Denies:: Asthma COPD Chest Surgery Cough Dyspnea Emphysema Hemoptysis Pneumonia (viral bronchitis oct 2013) Tuberculosis Use of C-PAP Machine (SNORES) Hx Neurologic Problems?: No Neurological History: Positive for:: Headaches Denies:: Alzheimer's Disease CVA Dementia Dizziness Multiple Sclerosis Parkinson's Disease Seizures Hx of GI Problems?: Yes Gastrointestinal History: Denies:: Cirrhosis Diverticulitis Gall Bladder Disease Gastroesphageal Reflux Gastrointestinal Bleeding Heartburn Hepatitis Hiatal Hernia Liver Disease Rectal Bleeding Other GI Pertinent History: L KIDNEY REMOVED, ESRD, PANNICULECTOMY Hx of Problems?: Yes Genitourinary History: Positive for:: HX of Hemodialysis (S/P LT BRACHIO- CEPHALIC A/V FISTULA, FISTULA ANEURYSM RPR T-TH-S DIALYSIS ) Urinary Tract Infection (HX OF ) Denies:: Kidney Stones HX of Peritoneal Dialysis: Yes (S/P PERITONEAL DIALYSIS CATH INSERTION & REMOVAL R/T PERITONITIS) Female Hx: Denies:: Currently (BTL 2001) Endometriosis (S/P ENDOMETRIAL ABLATION) Pelvic Inflammatory Problems with Breasts? Skin History: Denies:: History Skin Disorders? Pressure Ulcers Hx Musculoskeletal Problems?: No Hx of Psycho/Social Problems?: No Psycho Social History: Denies:: Anxiety Bipolar Disorder Hx Depression Suicide Attempt Hx Surgeries?: No (gastric bypass, abd hernia, csection x2, ureter reroute, l kidney removal, ) Hx Any Other Health Problems?: No Other History: Positive for:: Hospitalization (Bronchitis, cesareans, kidney infections) Denies:: Cancer Endocrine Disease Thyroid Disease History Blood Transfusions: Positive for:: Accept Blood Products? Blood Transfusions Denies:: Blood Transfuse Reaction Hx Diabetes: No Other Pertinent History: L kidney removal in ; pannulectomy in Mar 2016 Hx Alcohol Use: NoHx Substance Use: No Smoking Status: Former Smoker Have You Smoked inLast 12 mo: No Stop/Bang Treated for Sleep Apnea?: No Do You Have a CPAP Machine?: No S-Snoring: Do You Snore Loudly: No T-Tired: feel tired, fatigued: No O-Obsered: Observed not breath: No P-Blood Pressure: treated: No B- Body Mass Index > 35 kg/m2: No A- Age over 50: No N- Neck Large Circumference: No G- Gender Male: No MYNOR Total Score: 0 MYNOR Risk Assessment: Low Risk, <3 Yes Risk Assessment Category Category 1A: Patient has history of documented sleep apnea, and HAS NOT received any narcotic, sedative or anesthesia administration during this stay. Category 1B: Patient has history of documented sleep apnea, and HAS received any narcotic , sedative or anesthesia administration during this stay Category 2: Patient has SUSPECTED Obstructive Sleep Apnea, and HAS received any narcotic , sedative or anesthesia administration during this stay. Category 3: Patient has SUSPECTED Obstructive Sleep Apnea and HAS NOT received narcotic, sedative or anesthesia administration during this stay. Category 4: Outpatient in Procedural Areas with known sleep apnea or who screen positive for High Risk via the STOP/BANG questionnaire. Exam Exam Vital Signs Vital Signs Date Time Temp Pulse Resp B/P Pulse Ox O2 Delivery O2 Flow Rate FiO2 05/11/16 10:53 36.4 81 14 107/78 99 Room Air 05/11/16 10:09 97 05/11/16 09:57 36.6 74 15 119/79 97 Room Air 05/11/16 03:20 37.1 96 20 105/72 94 Room Air General Appearance: Alert, Oriented X3, Cooperative, No Acute Distress HEENT/AIRWAY: MP 1 Lungs: Clear to Auscultation, Normal Air Movement Heart: Exam Unremarkable, Regular Rate/Rhythm, No Murmurs/Rubs/Gallops Meds/Labs/Diagnostics Admission Meds Current Medications Vancomycin HCl 500 mg/Sodium Chloride 100 ml @ 200 mls/hr OT ONCE IV Last administered on 05/10/16t 15:20; Start 05/10/16 at 17:00; Stop 05/10/16 at 17:29 ; Status DC Iron Sucrose/ Sodium Chloride (Venofer Inj/ Normal Saline) 105 ml @ 210 mls/hr ONCE ONCE IV Last administered on 05/10/16 17:47; Start 05/10/16 at 15:30; Stop 05/10/16 at 15:59; Status DC Polyethylene Glycol/ Electrolytes (Colyte) 4,000 ml ONCE PO Last administered on 05/10/16 18:51; Start 05/10/16 at 18:30; Stop 05/11/16 at 06:00; Status DC Pantoprazole 40 mg 40 mg DAILYAC IVPUSH Last administered on 05/11/16 08:36; Start 05/10/16 at 21:55 Sodium Chloride 250 ml @ STK-MED ONCE .ROUTE Last administered on 05/11/16 09:15; Start 05/11/16 at 08:54; Stop 05/11/16 at 08:57; Status DC Lactated Ringer's (Lr) 1,000 ml @ STK-MED ONCE IV Last administered on 05/11 11:05; Start 05/11/16 at 10:58; Stop 05/11/16 at 11:00; Status DC Labs Test 05/07/16 20:20 05/08/16 14:43 05/09/16 03:02 05/09/16 12:40 Hemoglobin A1c 4.8% (4.8-5.6) Lactic Acid Level 0.9mmol/L (0.4-2.0) Troponin T < 0.010ug/L (0.0-0.011) Urine Color Yellow (YELLOW) Urine Appearance Hazy (CLEAR,HAZY) Urine pH 7.0 (5.0-8.0) Urine Specific Rogers 1.015 (1.003-1.035) Urine Protein 100mg/dL (NEG,TRACE) Urine Glucose (UA) Negativemg/dL (NEGATIVE) Urine Ketones Negativemg/dL (NEGATIVE) Urine Occult Blood Moderate (NEGATIVE) Urine Nitrite Negative (NEGATIVE) Urine Bilirubin Negative (NEGATIVE) Urine Urobilinogen Normalmg/dL (NORMAL) Urine Leukocyte Esterase Small (NEGATIVE) Urine RBC 3-10/hpf (0-2) Urine WBC 0-5/hpf (0-5) Urine Epithelial Cells Moderate/hpf (NONE-MOD) Urine Crystals None seen (NONE SEEN) Urine Bacteria Few/hpf (NONE-FEW) Urine Hyaline Casts None/lpf (NONE) Urine Granular Casts None seen (NONE SEEN) Urine Waxy Casts None seen (NONE SEEN) Urine Red Blood Cell Casts None seen (NONE SEEN) Urine White Blood Cell Casts None seen (NONE SEEN) Urine Mucus None seen (None Seen) Urine Trichomonas None seen (NONE SEEN) Urine Yeast None (NONE SEEN) Urinalysis Comment None Urine Culture Reflexed Indicated Phosphorus Level 3.2mg/dL (2.5-4.9) Magnesium Level 2.1mg/dL (1.6-2.6) Iron Level 27ug/dL (35-150) Total Iron Binding Capacity 160ug/dL (250-450) Percent Iron Saturation 17%sat (15-50) Unsaturated Iron Binding 132.5ug/dL Test 05/10/16 05:37 05/11/16 03:25 Procalcitonin 10.08ng/mL (0.00-0.08) White Blood Count 3.4th/mm3 (3.8-10.1) Red Blood Count 2.94mil/mm3 (3.90-5.20) Hemoglobin 8.5g/dL (12.0-15.6) Hematocrit 26.9% (35.0-46.0) Mean Corpuscular Volume 91.5fL (81-100) Mean Corpuscular Hemoglobin 28.9pg (27.0-35.0) Mean Corpuscular Hemoglobin Concent 31.6% (32.0-37.0) Red Cell Distribution Width 13.1% (12.3-15.4) Platelet Count 138bil/L (150-400) Neutrophils (%) (Auto) 55.1% (40-74) Lymphocytes (%) (Auto) 21.1% (14-46) Monocytes (%) (Auto) 12.5% (4-12) Eosinophils (%) (Auto) 9.5% (0-5) Basophils (%) (Auto) 0.3% (0-3) Sodium Level 142mEq/L (134-144) Potassium Level 4.4mEq/L (3.5-5.2) Chloride Level 98mEq/L (97-108) Carbon Dioxide Level 30mmol/L (18-29) Blood Urea Nitrogen 12mg/dL (6-20) Creatinine 4.33mg/dL (0.57-1.00) Estimat Glomerular Filtration Rate 16mL/min (>59) Glucose Level 80mg/dL (60-99) Calcium Level 7.2mg/dL (8.5-10.1) Total Bilirubin 0.3mg/dL (0.0-1.2) Aspartate Amino Transf (AST/SGOT) 25U/L (0-50) Alanine Aminotransferase (ALT/SGPT) 14U/L (0-32) Alkaline Phosphatase 74U/L (25-150) Total Protein 6.3g/dL (6.4-8.4) Albumin 3.5g/dL (3.4-5.0) Vancomycin Level Trough 21.0mcg/mL Plan Impression Patient chart reviewed, patient interviewed and anesthestic plan with risks, benefits, and alternatives discussed, and informed consent obtained. NPO Status: mn ASA Physical Status: ASA3 Severe Disease Anesthetic Plan: MAC Bene/Risks/Altern/Consents: Yes HP Complete Prior to Induction: Yes Donato Bellamy MD May 11, 2016 11:14
[2016-05-11] MEDS ORDERED: 0.9% Sodium Chloride 1,000 ML ONE (11:25)
[2016-05-11] MEDS ORDERED: Lactated Ringer's 1,000 ML IV SCH (11:42)
--- NOTE | 2016-05-11 11:43 | NUR ---
OFF UNIT Patient off unit to endoscopy for procedure.
[2016-05-11] MEDS ORDERED: Ondansetron 2 mg/mL 2 mL Inj IVPUSH PRN (11:45)
[2016-05-11] MEDS ORDERED: MetoCLOpramide 5 mg/mL 2 mL Inj IVPUSH PRN (11:45)
--- NOTE | 2016-05-11 12:39 | PCM.ANEP2 ---
Post Anesthesia Evaluation ASA/CMS Post Anesthesia VS in Patient's Normal Range?: Yes Resp Stable; Airway Patent?: Yes CV Function & Hydration Stable: Yes Mental Status Recovered?: Yes Pain control Satisfactory?: Yes N/V Control Satisfactory?: Yes Donato Bellamy MD May 11, 2016 12:39
--- NOTE | 2016-05-11 12:39 | PCM.ANEP1 ---
Post Anesthesia Phase 1 PACU Phase 1 Assessment Date of Service: May 09, 2016 Vital Signs Vital Signs Date Time Temp Pulse Resp B/P Pulse Ox O2 Delivery O2 Flow Rate FiO2 05/11/16 12:34 88 16 98/68 95 Room Air 05/11/16 12:27 87 14 95/64 95 Room Air 05/11/16 12:16 85 14 100/60 93 Room Air 05/11/16 12:12 83 14 100/65 98 Room Air 05/11/16 12:04 80 14 78/51 97 Nasal Cannula 2 05/11/16 12:01 80 14 78/51 97 Nasal Cannula 2 05/11/16 11:58 84 12 73/46 95 Nasal Cannula 2 05/11/16 10:53 36.4 81 14 107/78 99 Room Air 05/11/16 10:09 97 05/11/16 09:57 36.6 74 15 119/79 97 Room Air Anesthetic Administered: MAC Level of Alertness: Awake, talking HANNA's with Equal Strength: Yes Pain: No Pain Scale Score: 1 Nausea or Vomiting: No Oxygen Delivery: Room Air Lungs: Clear to Auscultation, Normal Air Movement Dermatome Level: Full Sensation Donato Bellamy MD May 11, 2016 12:39
--- NOTE | 2016-05-11 14:00 | ENDO ---
[address] [address] ENDOSCOPY PROCEDURE PATIENT: ARLENE ROMERO : 1975 MR#: [id number] ADMIT: 05/08/2016 JOB ID: [id number] DATE: 05/11/2016 TYPE OF OPERATION: Esophagogastroduodenoscopy and colonoscopy. PREOPERATIVE DIAGNOSIS(ES): Iron deficiency anemia. POSTOPERATIVE DIAGNOSIS(ES): 1. Erica-en-Y gastric bypass without any anastomotic ulcer that was seen. 2. Small internal hemorrhoids. ANESTHESIA: Monitored anesthesia care. COMPLICATIONS: None. BLOOD LOSS: Minimal. DESCRIPTION OF PROCEDURE: After risks and benefits were explained to the patient, informed consent was obtained. After anesthesia administered, upper endoscope was then inserted into the mouth, intubating the esophagus, stomach, into the long limb of the Erica-en-Y gastric bypass. After procedure was done, the scope was withdrawn and the procedure terminated. Colonoscope was then inserted from the rectum to cecum. Mucosa carefully examined. Prep of the patient was excellent. After the procedure was done, the scope withdrawn and procedure terminated. FINDINGS: Upon inspection of the esophagus, the esophagus was normal without masses, ulcers, lesions. Z-line located 40 cm from incisors. Upon entering stomach, there appeared to be a Erica-en-Y gastric bypass. There were no ulcers seen in the gastric pouch or the anastomosis. The scope was advanced to the long limb down past the gastrojejunal anastomosis and no ulcers were seen in the jejunum. A retroflexion in the gastric pouch was normal. Upon inspection of the anus, no masses, hemorrhoids, ulcers or fissures that were seen. Throughout the entire examination, there were no polyps, masses or lesions. No blood was seen. Retroflexion showed small internal hemorrhoids. IMPRESSION: Small internal hemorrhoids. RECOMMENDATION: 1. Stool softener as needed. 2. We will sign off.
--- NOTE | 2016-05-11 15:32 | PCM.DIMED ---
Discharge Instructions Date of Service May 11, 2016 Dates of Hospitalization May 08, 2016 at 00:29 Discharge Diagnosis Discharge Diagnosis End-stage renal disease on hemodialysis with fever and cough secondary to bronchitis. Diet Renal Diet Activity No restrictions (The patient may gradually resume usual activities as tolerated. ) Call your provider Fever or Chills, Shortness of breath, Bleeding, Chest pain, Vomitting, Excessive diarrhea, Weakness (unilateral), Other Patient Instructions Follow-up Provider: Cedrick Hines MD Follow-up with PCP in: 1 week Provider: Luis A Puente MD Follow-up in: 1 week (for nephrology follow-up) Robert Huizar MD May 11, 2016 15:32
[2016-05-11] MEDS ORDERED: CEFD300C3 PO (15:34)
[2016-05-11] MEDS ORDERED: Propofol 10,000 mCg/mL 20 mL Inj ONE (16:04)
[2016-05-11] MEDS ORDERED: fentaNYL-PF 50 mCg/mL 2 mL Inj ONE (16:04)
--- NOTE | 2016-05-11 16:12 | DRSVH ---
PROCEDURE: X-RAY CHEST, TWO VIEWS ([id number]) INDICATIONS: Fever with cough/Possible infiltrate TECHNIQUE: 2 views of the chest were acquired. COMPARISON: [facility], CR, XR CHEST 1VW (PORTABLE), 05/07/2016, 19:37. [facility], CR, XR CHEST 2VW, 02/17/2016, 20:50. FINDINGS: Surgical changes and devices: Stable positioning of right IJ double-lumen dialysis catheter. Lungs and pleura: No pleural effusions or pneumothorax. Lung volumes are low and air space opacity in the left lung base. Mediastinum: Mediastinal contours are normal. Heart size is normal. Bones and chest wall: No suspicious bony abnormalities. Soft tissues appear unremarkable. IMPRESSION: Left basilar atelectasis versus aspiration or pneumonia. Correlate clinically. Dictated by: Miguel Charles RRA Interpreted: Alfred Espinal MD on 05/11/2016 at 16:10 Transcribed by: SANDRA on 05/11/2016 at 16:11 Approved by: Alfred Espinal M.D. on 05/11/2016 at 17:34
--- NOTE | 2016-05-11 16:27 | PCM.DC.MED ---
Discharge Summary Date of Service May 11, 2016 Dates of Hospitalization Date of Hospital Admission May 08, 2016 at 00:29 Date of Discharge: May 11, 2016 Providers: Admitting Physician: Justin Blevins MD Primary Care Physician: Cedrick Hines MD Attending Physician: Justin Blevins MD Diagnosis at Time of Discharge Diagnosis at Time of Discharge End-stage renal disease on hemodialysis with fever and cough secondary to bronchitis. Consultations Dr. Hale of nephrology and Dr. Reymundo Real of gastroenterology. Procedures XRay, CTs & MRIs X-RAY CHEST ONE VIEW, PORTABLE IMPRESSION: 1. No acute cardiopulmonary findings. 2. Findings suspicious for retracted hemodialysis catheter. If there is a history of dialysis dysfunction, nonemergent repositioning of the catheter may be helpful. Dictated by: Sherry Parham M.D. on 05/07/2016 at 20:08 Approved by: Sherry Parham M.D. on 05/07/2016 at 20:10 X-ray on was reviewed by myself as report is not yet complete. There does not appear to be any new infiltrate. Invasive Procedures TYPE OF OPERATION: Esophagogastroduodenoscopy and colonoscopy. PREOPERATIVE DIAGNOSIS(ES): Iron deficiency anemia. POSTOPERATIVE DIAGNOSIS(ES): 1. Erica-en-Y gastric bypass without any anastomotic ulcer that was seen. 2. Small internal hemorrhoids. ANESTHESIA: Monitored anesthesia care. COMPLICATIONS: None. BLOOD LOSS: Minimal. Brief History Snow Romero is a 40 year old female with past medical history significant for ESRD thought to be due to ureteral reflux in childhood currently on hemodialysis who presents to the ED with 2 days of productive cough, chills, and myalgias. Patient had a recent panniculectomy on 04/15/16 requiring the removal of her peritoneal dialysis catheter and placement of a right temporary port cath for hemodialysis that she has Monday, , and Monday. She had no complications with surgery and has not missed a hemodialysis session. Prior to surgery she had been on peritoneal dialysis since 2012. She states the cough began on 05/05 and has progressively worsened. It is associated with nausea , diaphoresis, chills, headache, and generalized myalgias. She denies chest pain, palpitations, dizziness, dysuria, shortness of breath, melena, hematochezia, or abdominal pain. She denies sick contacts and recent antibiotic use. She has received her flu and pneumonia vaccines this year. On presentation to the ED patient's initial temperature was 37.4, pulse 134, respiratory rate 20, blood pressure 78/52, pulse oximetry 98% on room air. During the duration of her stay in the ED she became less tachycardic and blood pressure improved slightly. She states that her blood pressure typically runs low with systolics between 80 and 100. Labs did not reveal a leukocytosis and chest x-ray was unremarkable although this is in the setting of recent hemodialysis earlier today. Due to patient's continued cough and fever of 39.6 C with repeat vitals patient will be admitted for observation due to her comorbidities and continued tachycardia and low blood pressure although somewhat normal for her. She received an IM dose of ceftriaxone in the ED. patient was subsequently admitted to the hospital service for further evaluation and treatment. Hospital Course Snow Romero is a 40 year old female with past medical history significant for ESRD thought to be due to ureteral reflux in childhood currently on hemodialysis who presents to the ED with 2 days of productive cough, chills, and myalgias. Admitted for possible influenza versus healthcare associated pneumonia. # Possible healthcare associated pneumonia, present on admission. Active. Patient presented with 2 day history of productive cough, myalgias, and chills currently on hemodialysis. - Respiratory PCR is negative. - Urine L. pneumonia antigen is pending and Strep pneumonia antigen is negative. - Blood, sputum, and urine cultures sent and are unrevealing so far - Pro calcitonin elevated at 7.37 on admission. - Chest x-ray showed no acute cardiopulmonary process. - Patient received IM dose of ceftriaxone and vancomycin in the ED. - Empiric antibiotics were started: We continued Vancomycin and cefepime pending culture results. We repeated blood cultures due to persistent high fever with one set of cultures from her hemodialysis catheter and these all came back negative. - Duo nebs was given via SVN treatments every 4 hours - Supplemental oxygen as needed. - Repeat labs in the morning. # Possible influenza, present on admission. Active. - Rapid flu screen negative. Respiratory PCR negative. - Tamiflu started prior to PCR returning due to patient's symptoms and comorbidities. However, as the PCR was negative and we discontinued Tamiflu. - Continue supportive therapy. # End-stage renal disease on hemodialysis, present on admission. Active. Patient was dialyzed for 4 hours on a revaclear max dialyzer, 3 potassium bath, no heparin, 2-3 L of fluid removed yesterday. Thought to be secondary to ureteral reflux in childhood. Patient on peritoneal dialysis since 2012. Recently switched to hemodialysis because of panniculectomy on 04/15/16. Right IJ tunneled catheter placed. Hemodialysis conducted as an outpatient on a Monday, , Monday schedule. - We continued to closely monitor electrolytes. - Decision Support Manager is Dr. Luu as an outpatient - Continue home medications. - We have consult inpatient nephrology service and Dr Argueta's help. # Acute on chronic anemia, present on admission. Active. Possibly due to acute GI blood loss. Patient found to have hemorrhoids and colonoscopy which may have been the source of bleeding. Other possible causes include arteriovenous malformations which are difficult to diagnose, and in hemodialysis patients according to Dr. Argueta. - Baseline hemoglobin appears to be around 10. Hemoglobin on admission 8.2. Patient received Aranesp 05/07/2016 with hemodialysis. She received another 60 mg of Aranesp with dialysis yesterday. - Patient received 1 unit of leuko-poor packed red blood cells during this admission - Appreciate Dr. Reymundo Real's GI consult and patient underwent an EGD and colonoscopy today. # Hypomagnesemia -We gave 2 g of magnesium sulfate IV on 05/08/2016 # Morbid Obesity -Status post gastric bypass surgery -Status post panniculectomy last month on 04/15/2016. -We will need to monitor incision for any sign of infection. So far there is no evidence of infection. The wound care nurse Fidel evaluated the patient and agreed with this assessment. Disposition: Patient is to go home today on oral antibiotics with Ceftin ear 300 mg by mouth every 24 hours for 7 days. Discussed with patient and patient' s in regards to this plan and they are in agreement. Her is here to pick her up and take her home. Exam Vital Signs (Last) Date Time Temp Pulse Resp B/P Pulse Ox O2 Delivery O2 Flow Rate FiO2 05/11/16 13:17 36.8 92 16 88/56 96 Room Air 05/11/16 12:04 2 Exam General: Patient was seen after EGD and colonoscopy appears quite comfortable. She is laying supine in bed in no apparent distress. She is eaten half a hamburger already. HEENT: Head is atraumatic and normocephalic. Eyes: Pupils are equally round and reactive to light and accommodation. Extraocular muscles are intact. Sclera are white, anicteric. Subconjunctival mucosa is pale. Ears and nose are unremarkable. Oropharynx: There is no mucosal lesions, there is no thrush, there is no pharyngitis. Mucosa is pale. Neck: Is supple, there are no nodes, or masses or tenderness. Chest: Is clear to auscultation and percussion. There are no rales, rhonchi, wheezes or rubs. Hemodialysis catheter site itself is unremarkable. However, just above that at potentially the right subclavian vein insertion site incision and some scab formation over it. This looks excellent today. There is no evidence of cellulitis around this site, or around the insertion site of the catheter.. Heart: Rate is slightly tachycardic, rhythm is regular. There is no new murmur , rub or gallop. Abdomen: Good bowel sounds are present. Abdomen is soft, nontender, no organomegaly or masses were appreciated. There is a very small opening of the recent abdominal surgical incision. This is very superficial. There is no purulent drainage and no erythema. Extremities: Are symmetrical and well perfused. There is no edema, there is no cellulitis, no rash. Neurologic: There are no focal neurological deficits. Cranial nerves II through XII are intact. There are no sensory or motor deficits. Psychiatric: Patients mood is calm and she shows no sign of agitation. Genital: Deferred Rectal: Deferred Test 05/07/16 20:20 05/08/16 14:43 05/09/16 03:02 05/09/16 12:40 Hemoglobin A1c 4.8% (4.8-5.6) Lactic Acid Level 0.9mmol/L (0.4-2.0) Troponin T < 0.010ug/L (0.0-0.011) Urine Color Yellow (YELLOW) Urine Appearance Hazy (CLEAR,HAZY) Urine pH 7.0 (5.0-8.0) Urine Specific Hersey 1.015 (1.003-1.035) Urine Protein 100mg/dL (NEG,TRACE) Urine Glucose (UA) Negativemg/dL (NEGATIVE) Urine Ketones Negativemg/dL (NEGATIVE) Urine Occult Blood Moderate (NEGATIVE) Urine Nitrite Negative (NEGATIVE) Urine Bilirubin Negative (NEGATIVE) Urine Urobilinogen Normalmg/dL (NORMAL) Urine Leukocyte Esterase Small (NEGATIVE) Urine RBC 3-10/hpf (0-2) Urine WBC 0-5/hpf (0-5) Urine Epithelial Cells Moderate/hpf (NONE-MOD) Urine Crystals None seen (NONE SEEN) Urine Bacteria Few/hpf (NONE-FEW) Urine Hyaline Casts None/lpf (NONE) Urine Granular Casts None seen (NONE SEEN) Urine Waxy Casts None seen (NONE SEEN) Urine Red Blood Cell Casts None seen (NONE SEEN) Urine White Blood Cell Casts None seen (NONE SEEN) Urine Mucus None seen (None Seen) Urine Trichomonas None seen (NONE SEEN) Urine Yeast None (NONE SEEN) Urinalysis Comment None Urine Culture Reflexed Indicated Phosphorus Level 3.2mg/dL (2.5-4.9) Magnesium Level 2.1mg/dL (1.6-2.6) Iron Level 27ug/dL (35-150) Total Iron Binding Capacity 160ug/dL (250-450) Percent Iron Saturation 17%sat (15-50) Unsaturated Iron Binding 132.5ug/dL Test 05/10/16 05:37 05/11/16 03:25 Procalcitonin 10.08ng/mL (0.00-0.08) White Blood Count 3.4th/mm3 (3.8-10.1) Red Blood Count 2.94mil/mm3 (3.90-5.20) Hemoglobin 8.5g/dL (12.0-15.6) Hematocrit 26.9% (35.0-46.0) Mean Corpuscular Volume 91.5fL (81-100) Mean Corpuscular Hemoglobin 28.9pg (27.0-35.0) Mean Corpuscular Hemoglobin Concent 31.6% (32.0-37.0) Red Cell Distribution Width 13.1% (12.3-15.4) Platelet Count 138bil/L (150-400) Neutrophils (%) (Auto) 55.1% (40-74) Lymphocytes (%) (Auto) 21.1% (14-46) Monocytes (%) (Auto) 12.5% (4-12) Eosinophils (%) (Auto) 9.5% (0-5) Basophils (%) (Auto) 0.3% (0-3) Sodium Level 142mEq/L (134-144) Potassium Level 4.4mEq/L (3.5-5.2) Chloride Level 98mEq/L (97-108) Carbon Dioxide Level 30mmol/L (18-29) Blood Urea Nitrogen 12mg/dL (6-20) Creatinine 4.33mg/dL (0.57-1.00) Estimat Glomerular Filtration Rate 16mL/min (>59) Glucose Level 80mg/dL (60-99) Calcium Level 7.2mg/dL (8.5-10.1) Total Bilirubin 0.3mg/dL (0.0-1.2) Aspartate Amino Transf (AST/SGOT) 25U/L (0-50) Alanine Aminotransferase (ALT/SGPT) 14U/L (0-32) Alkaline Phosphatase 74U/L (25-150) Total Protein 6.3g/dL (6.4-8.4) Albumin 3.5g/dL (3.4-5.0) Vancomycin Level Trough 21.0mcg/mL Microbiology Results Respiratory viral PCR studies are negative. Blood cultures are pending Name: SNOW ROMERO Age/Sex: 40/F Attend Dr: Justin Blevins MD Acct: [id number] Unit: [id number] Status: ADM IN Location: [facility] 2003-03 Re05/08/16 Disch: Specimen: [id number] Collected: 05/08/16 Status: RES Req#: [id number] Received: 05/09/16 Source: CATH SITE Sp Desc : Subm Dr: Robert Jules MD Ordered: CS & ANAC & GS Comments: Collected by Nurse/Unit? Y/N Y Comment: Hemodialysis catheter site Procedure Result Verified Site Microbiology CRUZ GS (GRAM STAIN) Final 05/09/16-1043 GRAM STAIN RESULT NO POLYS NO ORGANISMS SEEN RARE EPITHELIAL CELLS Discharge Medications Discharge Medications Calcium Carbonate/Mag Hydrox (Antacid Chewable Tablet) 1 Each Tab.chew 12 EACH PO DAILY (Reported) takes tums with meals for a total of 8-10 a day with meals and 4 tablets at bedtime Cefdinir (Cefdinir) 300 Mg Capsule 300 MG PO DAILY Prescribed by: LENNOX JULES MD Cholecalciferol (Vitamin D3) (Vitamin D) 50,000 Unit Capsule 50,000 UNIT PO Thur ,Fri,Sun (Reported) Sennosides/Docusate Sodium (Senna-Docusate Sodium Tablet) 1 Each Tablet 1-2 EACH PO DAILY (Reported) Sevelamer Carbonate (Renvela) 800 Mg Tablet 1,600 MG PO TIDWM (Reported) As needed Benzonatate (Tessalon Perle) 100 Mg Capsule 100 MG PO TID PRN PRN For Cough Prescribed by: DAWNA DENT MD Fludrocortisone Acetate (Fludrocortisone Acetate) 0.1 Mg Tablet 0.2 MG PO UD PRN PRN For Hypotension (Reported) Hydrocodone-Acetaminophen 7.5-325/15 mL (Hydrocodone-Acetaminophen 7.5-325/15 mL ) 15 Ml Solution 5-7.5 ML PO Q4 PRN PRN For Cough Prescribed by: DAWNA DENT MD Midodrine (Midodrine) 5 Mg Tablet 2 TAB PO TID PRN PRN bp (Reported) oxyCODONE (oxyCODONE) 5 Mg Capsule 10 MG PO Q4H PRN PRN For Pain (Reported) Followup Plan Disposition: Patient is being discharged home with her . Discharge Diet: Renal Diet Discharge Activity: No restrictions (The patient may gradually resume usual activities as tolerated.) Follow-up Provider: Cedrick Hines MD Follow-up with PCP in: 1 week Provider: Luis A Puente MD Follow-up in: 1 week (for nephrology follow-up) Time spent Time spent on discharging this patient was greater than 35 minutes, over half of which was involved in counseling and coordination of care. Robert Jules MD May 11, 2016 16:27
--- NOTE | 2016-05-11 16:43 | NUR ---
DISCHARGE NOTE Pt reviewed discharge instructions with RN and given the opportunity to ask any questions. IV was D/C intact, and tele was removed. Pt was discharged to care of her . She received and left with all of her belongings, including medication that was being held in the pharmacy. She was wheeled down to the main lobby of the hospital by myself, and I escorted her to their private vehicle. Addendum: 05/11/16 at 1722 by MADYSON HOUSE RN Agree with student RN note.
[2016-05-12] MEDS ORDERED: Vancomycin Serum Trough XX ONE (05:00)
[2016-07-07] MEDS ORDERED: BUPR100T15 PO (11:59)
[2016-07-07] MEDS ORDERED: CHOL500050 PO (12:01)
[2016-07-07] MEDS ORDERED: CALC-984 PO (12:01)
== END 2016-05-11 16:05 | disposition home or self-care (01) | DRG 193 ==
LOC: SED 15:34 → OBSVTOIN 05-08 00:29 → PCC 05-08 00:29
PROVIDERS: ADMIT Hospitalist; ATTEND Hospitalist
PROC: 30233N1 Transfusion of Nonautologous Red Blood Cells into Peripheral Vein, Percutaneous Approach (ICD-10-PCS; principal; 2016-05-10)
PROC: 0DJD8ZZ Inspection of Lower Intestinal Tract, Via Natural or Artificial Opening Endoscopic (ICD-10-PCS; 2016-05-11)
PROC: 0DJ08ZZ Inspection of Upper Intestinal Tract, Via Natural or Artificial Opening Endoscopic (ICD-10-PCS; 2016-05-11 11:30)
DX: J18.9 Pneumonia, unspecified organism (principal); N18.6 End stage renal disease; I12.0 Hypertensive chronic kidney disease with stage 5 chronic kidney disease or end stage renal disease; D62 Acute posthemorrhagic anemia; Z99.2 Dependence on renal dialysis; D63.1 Anemia in chronic kidney disease; E83.42 Hypomagnesemia; Z68.28 Body mass index [BMI] 28.0-28.9, adult; J11.1 Influenza due to unidentified influenza virus with other respiratory manifestations; Z87.891 Personal history of nicotine dependence; K21.9 Gastro-esophageal reflux disease without esophagitis; Z90.5 Acquired absence of kidney; Z98.84 Bariatric surgery status

== ENCOUNTER 2016-05-23 14:37 | Emergency (ER) | payer MEDICARE ==
[~2016-05-23] VITALS: Ht 157.5 cm; Wt 69.5 kg
[~2016-05-23 14:37] MED LIST changes: +BENZ-12 PO; +CEFD300C3 PO; -CLON0.1T PO; +HYDR15SO8 PO; -MUPI15CR11 TOP; +OXYC5CAP4 PO
[2016-05-23 14:46] VITALS: BP 103/66; RESP 18; O2SAT 99
--- NOTE | 2016-05-23 18:39 | ED.REPORT ---
HPI-URI / Cough / Cold Date of Service May 23, 2016 ED Provider: Rob,Ed History of Present Illness: headache since 1 pm uses tramadol and oxycodone at home. admitted 05/08/2016 for cough. coughing has increased since then. coughed to the point of vomiting 2 night ago. had 100.4 earlier today. took tramadol this am around 8 am. primary care is serena. and [facility] Esau is nephrolist Nursing Notes Stated Complaint: COUGH/HEADACHE/NO APPETITE Chief Complaint: ENT & Mouth Nursing Notes Reviewed: Yes Allergies: Coded Allergies: gentamicin (Verified Allergy, Severe, SPECIFICIALLY LISTED FROM 08/17 CREAM...RASH, 03/29/16) Scheduled Calcium Carbonate/Mag Hydrox (Antacid Chewable Tablet) 1 Each Tab.chew 12 EACH PO DAILY takes tums with meals for a total of 8-10 a day with meals and 4 tablets at bedtime Cefdinir (Cefdinir) 300 Mg Capsule 300 MG PO DAILY Cholecalciferol (Vitamin D3) (Vitamin D) 50,000 Unit Capsule 50,000 UNIT PO Th ,Mon,Sun Sennosides/Docusate Sodium (Senna-Docusate Sodium Tablet) 1 Each Tablet 1-2 EACH PO DAILY Sevelamer Carbonate (Renvela) 800 Mg Tablet 1,600 MG PO TIDWM Scheduled PRN Benzonatate (Tessalon Perle) 100 Mg Capsule 100 MG PO TID PRN PRN For Cough Fludrocortisone Acetate (Fludrocortisone Acetate) 0.1 Mg Tablet 0.2 MG PO UD PRN PRN For Hypotension Hydrocodone-Acetaminophen 7.5-325/15 mL (Hydrocodone-Acetaminophen 7.5-325/15 mL ) 15 Ml Solution 5-7.5 ML PO Q4 PRN PRN For Cough Midodrine (Midodrine) 5 Mg Tablet 2 TAB PO TID PRN PRN bp oxyCODONE (oxyCODONE) 5 Mg Capsule 10 MG PO Q4H PRN PRN For Pain General Time Seen by MD: 18:38 Chief Complaint Cough, non-productive Hx Obtained From: Patient Onset Occurred: More than a week ago... (3 weeks) Symptom Duration: Since onset Past Medical History Past Medical History Notes: PCP: Dr. Hines in [place] Fitter: Dr. Mcallister Patient underwent left nephrectomy on 04/16 for renal cell carcinoma Jessica - Dr. Spear Past Medical History End-stage renal disease, thought due to ureteral reflux in childhood, on nightly peritoneal dialysis (currently as of 05/13 on hemodialysis waiting for pannulectomy site to heal to resume PD) followed by Dr. Ray. Chronic anemia due to renal failure. History of peritonitis associated with peritoneal dialysis. 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 Right internal jugular vein tunneled hemodialysis catheter placement by Dr. Parham on 04/15/15. Gastric bypass (Erica en Y) for obesity, March 2014. Gastroesophageal reflux disease. Chronic constipation. Hearing loss (uses hearing aids). Reports: Renal failure Past Surgical History left nephrectomy on 04/16 for renal cell carcinoma Peritoneal dialysis catheter placement. Left upper extremity fistula. 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 section x2. Uterine ablation for bleeding. Pannulectomy Current dialysis catheter R chest (05/13) Reports: Reports: Gastric bypass, Tubal ligation Family History Mother - DM Maternal grandmother - HTN Paternal gradnmother - DM Smoking History Former Smoker Social History Lives with family, and teenage children Alcohol Use: Denies alcohol use Drug Use: Denies drug use Other Social History: Good social support, Frequent ED visitor, , Local resident Occupation Unknown Ambulatory Status Independent Review of Systems Basic Review of Systems : No dysuria, No frequency Hematologic: No bleeding, No bruising Psychiatric: Normal thought content Physical Exam Initial Vital Signs Vital Signs (First) Date Time Temp Pulse Resp B/P Pulse Ox O2 Delivery O2 Flow Rate FiO2 05/23/16 14:46 36.2 124 18 103/66 99 05/23/16 21:07 Room Air Initial VS: Reviewed, Vital signs abnormal Head / Eyes: Atraumatic, Normocephalic, PERRL Neck: Supple, Non-tender, Full range of motion Cardiovascular: Regular rate & rhythm, Heart sounds normal, Intact distal pulses Abdomen / GI: Soft, Non-tender, No guarding, No rebound, No distention Back: No CVA tenderness Lymphatic: No lymphadenopathy Extremities: Vascular intact, Neuro intact, No swelling, No tenderness Skin: Warm, Dry, No cyanosis Neurologic: Alert, Oriented, Nonfocal Psychiatric: Mood/affect normal, Behavior normal, Normal thought content General/Constitutional: Awake, Alert, No acute distress, Well appearing, Well developed, Well hydrated, Well nourished, Cooperative, Not toxic appearing ENT: Atraumatic, Airway patent, Mucous membranes moist, Pharynx NL Respiratory / Chest: Atraumatic, Breath sounds NL, Breath sounds = bilat, No respiratory distress, No rales, No rhonchi, No wheezing, No retractions, No stridor, No chest tenderness, No chest wall deformity, No crepitus Head / Eyes: Atraumatic, Normocephalic, PERRL, EOMI Cardiovascular: Heart rate NL, Regular rhythm, Heart sounds NL Abdomen: Atraumatic, Soft, Non-tender Interpretation & Diagnostics Lab Results Interpretation Result Diagram: 05/23/16192405/23/161924 Test 05/23/16 19:25 White Blood Count 7.9th/mm3 (3.8-10.1) Red Blood Count 3.04mil/mm3 (3.90-5.20) Hemoglobin 9.1g/dL (12.0-15.6) Hematocrit 28.7% (35.0-46.0) Mean Corpuscular Volume 94.4fL (81-100) Mean Corpuscular Hemoglobin 29.9pg (27.0-35.0) Mean Corpuscular Hemoglobin Concent 31.7% (32.0-37.0) Red Cell Distribution Width 16.3% (12.3-15.4) Platelet Count 214bil/L (150-400) Neutrophils (%) (Auto) 77.4% (40-74) Lymphocytes (%) (Auto) 12.6% (14-46) Monocytes (%) (Auto) 7.6% (4-12) Eosinophils (%) (Auto) 0.8% (0-5) Basophils (%) (Auto) 0.5% (0-3) Sodium Level 137mEq/L (134-144) Potassium Level 5.3mEq/L (3.5-5.2) Chloride Level 94mEq/L (97-108) Carbon Dioxide Level 20mmol/L (18-29) Blood Urea Nitrogen 75mg/dL (6-20) Creatinine 11.30mg/dL (0.57-1.00) Estimat Glomerular Filtration Rate 5mL/min (>59) Glucose Level 73mg/dL (60-99) Lactic Acid Level 0.6mmol/L (0.4-2.0) Calcium Level 8.7mg/dL (8.5-10.1) Total Bilirubin 0.5mg/dL (0.0-1.2) Aspartate Amino Transf (AST/SGOT) 10U/L (0-50) Alanine Aminotransferase (ALT/SGPT) 8U/L (0-32) Alkaline Phosphatase 68U/L (25-150) Total Protein 7.0g/dL (6.4-8.4) Albumin 3.8g/dL (3.4-5.0) Re-Eval/Medical Decision Med Decision/Clinical Course Med Decision/Clinical Course: 40 year old female desires admission for cough that has been ongoing since she was admitted on 05/08/2016. Chest x-ray is negative, labs are at baseline. dialysis is scheduled for tomorrow. Also present s with headache. Normally takes tramadol and oxycodone for pain. Took 2 tramadol no help. Repeated in ER, patient reporting minimal help. When going in to recheck on patient , she was sleeping, awoke easily but reports no change in headache and still feeling awful. Care turned over to Dr. Gee Discharge & Departure Referrals: Cedrick Hines MD (PCP) EDSupervising Provider for APC: Fabricio Gee MD copies to: Cedrick Hines MD, Sue ARNP May 23, 2016 18:39
--- NOTE | 2016-05-23 19:49 | DRSVH ---
PROCEDURE: X-RAY CHEST, TWO VIEWS ([id number]) INDICATIONS: cough TECHNIQUE: 2 views of the chest were acquired. COMPARISON: [facility], CR, XR CHEST 2VW, 05/11/2016, 14:11. FINDINGS: Surgical changes and devices: Unchanged appearance of large bore right-sided central venous catheter with the tip projecting in the mid SVC Lungs and pleura: No pleural effusions or pneumothorax. Lungs are clear. Mediastinum: Mediastinal contours are normal. Heart size is normal. Bones and chest wall: No suspicious bony abnormalities. Soft tissues appear unremarkable. IMPRESSION: No acute disease Dictated by: Abhishek Torres M.D. on 05/23/2016 at 19:46 Approved by: Abhishek Torres M.D. on 05/23/2016 at 19:47
[2016-05-23 20:31] LABS: BASOPHILS % (AUTO) 0.5 % (0-3); EOSINOPHILS % (AUTO) 0.8 % (0-5); MONOCYTES % (AUTO) 7.6 % (4-12); Mean Corpuscular Hemoglobin 29.9 pg (27.0-35.0); Mean Corpuscular Volume 94.4 fL (81-100); NEUTROPHILS % (AUTO) 77.4 % (40-74); Platelet Count 214 bil/L (150-400)
[2016-05-23 21:07] VITALS: BP 119/69; PULSE 94; RESP 18; O2SAT 99
[2016-05-23] MEDS ORDERED: 0.9% Sodium Chloride 1,000 ML IV ONE (21:20)
[2016-05-23] MEDS ORDERED: Dexamethasone Inj 10 MG in 0.9% Sodium Chloride-Pha MIX 50 ML IV ONE (21:20)
[2016-05-23 23:43] VITALS: BP 90/58; PULSE 75; RESP 18; O2SAT 93
[2016-05-24] MEDS ORDERED: TRAM50TA2 PO (18:58)
[2016-05-24] MEDS ORDERED: DOCU-41 PO (18:58)
[2016-05-24] MEDS ORDERED: CALC667C9 PO (18:58)
[2016-05-24] MEDS ORDERED: ACET325C PO (19:20)
[2016-07-07] MEDS ORDERED: BUPR100T15 PO (11:59)
[2016-07-07] MEDS ORDERED: CALC-984 PO (12:01)
[2016-07-07] MEDS ORDERED: CHOL500050 PO (12:01)
== END 2016-05-23 23:45 | disposition home or self-care (01) ==
LOC: SED 14:37
DX: R51 Headache (principal); B34.9 Viral infection, unspecified; N18.6 End stage renal disease; K21.9 Gastro-esophageal reflux disease without esophagitis; Z99.2 Dependence on renal dialysis; Z87.891 Personal history of nicotine dependence; Z88.1 Allergy status to other antibiotic agents
CPT/HCPCS: 36415; 71020; 80053; 83605; 85025; 87040; 87077; 87186; 96361; 96374; 96375; 99285; J1100; J1200; J7030

== ENCOUNTER 2016-05-24 16:19 | Inpatient (IN) | payer MEDICARE ==
[~2016-05-24] VITALS: Ht 157.5 cm; Wt 70.0 kg
[2016-05-24 16:29] VITALS: BP 98/62; PULSE 86; RESP 16; O2SAT 99
[2016-05-24 18:03] VITALS: PULSE 78
[2016-05-24 18:07] VITALS: BP 99/68; PULSE 72; RESP 20; O2SAT 98
[2016-05-24] MEDS ORDERED: Polyethylene Glycol (PEG) 17 Gm Powder PO PRN (18:25)
[2016-05-24] MEDS ORDERED: Ondansetron 2 mg/mL 2 mL Inj IVPUSH PRN (18:25)
[2016-05-24] MEDS ORDERED: Alum-Mag Hydrox-Simeth 30 mL Suspension PO PRN (18:25)
[2016-05-24] MEDS ORDERED: CeFAZolin 2 Gm/50 mL D5W IV Premix IV ONE (18:35)
[2016-05-24 18:53] LABS: BASOPHILS % (AUTO) 0.2 % (0-3); EOSINOPHILS % (AUTO) 0.3 % (0-5); Mean Corpuscular Hemoglobin 29.9 pg (27.0-35.0); NEUTROPHILS % (AUTO) 82.7 % (40-74); Platelet Count 313 bil/L (150-400)
[2016-05-24] MEDS ORDERED: DOCU-41 PO (18:58)
[2016-05-24] MEDS ORDERED: TRAM50TA2 PO (18:58)
[2016-05-24] MEDS ORDERED: CALC667C9 PO (18:58)
[2016-05-24] MEDS ORDERED: Cefepime 2,000 mg/100 mL D5W Minibag Plus IV ONE ×2 (19:05)
[2016-05-24] MEDS ORDERED: ACET325C PO (19:20)
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
[2016-05-24 19:36] VITALS: BP 119/72; PULSE 61; RESP 17; O2SAT 100
[2016-05-24 20:00] VITALS: PULSE 56
--- NOTE | 2016-05-24 20:14 | PCM.PHAPRO ---
Progress Date of Service: May 24, 2016 + Blood cultures with Gram negative Vancomycin Management Per Pharmacy: Indication: Bacteremia in a dialysis patient Age: 40 yo Weight: 67.9 kg Labs: WBC: 11.9 SrCr: Dialysis Est CrCl: Dialysis on // Vitals: Stable/WNL Micro: 2/2 blood cultures positive for gram variable rods, gerber sensitive staphylococcus growing from catheter site Additional Antibiotics: Cefepime Recommendation: Draw random vancomycin level with AM labs on 05/25 as patient already received a dose of vancomycin today post dialysis. Thank You, Thuy Castaneda, Pharm D. Thuy Castaneda May 24, 2016 20:14
[2016-05-24] MEDS ORDERED: HepLOK Flush 100 unit/mL 5 mL Inj IVFLUSH PRN (20:45)
[2016-05-24] MEDS ORDERED: Heparin 1,000 Unit/mL 10 mL Inj IVPUSH ONE (21:25)
--- NOTE | 2016-05-24 22:03 | NUR ---
Blood draw from dialysis catheter for blood culture. Red dialysis port accessed, 10 ml blood withdrew and wasted; another 10 ml blood was drawn and placed into Blood culture bottles by Daisy from the Lab. The red dialysis port was flushed with 20 ml NS then 2.0 ml of Heparin 1000u/ml was instilled. The dialysis catheter was then close with the appropriate device and then gauze was wrapped around both ends of the dialysis catheter and secured with tape. Sujatha Esparza RN
[2016-05-25] VITALS (9 sets, daily range): BP systolic 76–106; BP diastolic 52–68; PULSE 57–65; RESP 12–18; O2SAT 95–100
[2016-05-25] MEDS: Heparin 5,000 Unit/mL Inj SUBQ SCH ×4 (00:08→23:40)
[2016-05-25] MEDS ORDERED: CEFTAZIDIME IV SCH (00:30)
[2016-05-25] MEDS ORDERED: DEXTROSE 5% IV SCH (00:30)
[2016-05-25] MEDS ORDERED: diphenhydrAMINE 25 mg Capsule PO ONE (00:45)
[2016-05-25 04:01] LABS: Mean Corpuscular Hemoglobin 28.8 pg (27.0-35.0); Mean Corpuscular Volume 93.8 fL (81-100)
[2016-05-25] MEDS ORDERED: Vancomycin Serum Level XX ONE (05:00)
[2016-05-25 08:19] LABS: COLOR,URINE STRAW (YELLOW)
[2016-05-25 08:20] LABS: APPEARANCE,URINE CLOUDY (CLEAR,HAZY); OCCULT BLOOD,URINE SMALL (NEGATIVE); UROBILINOGEN,URINE NORMAL (NORMAL)
[2016-05-25] MEDS: Vancomycin Dose per Pharmacist XX SCH (08:30)
[2016-05-25] MEDS: Ergocalciferol (Vit D2) 50,000 Unit Capsule PO SCH (10:58)
--- NOTE | 2016-05-25 12:01 | PCM.PROC ---
Procedure Note Date of Service: May 25, 2016 Pre Procedure Diagnosis: ESRD removal of an infected dialysis catheter Post Procedure Diagnosis: Same Procedure: Removel of a tunneled dialysis catheter Provider and Transportation Maintenance Operator: Valeriano Argueta D.O., Jamie Moffett D.O. Indication for Procedure: Gram positive bacteremia Procedure Details: After informed consent was obtained from the patient, who had a bed was elevated to approximately 30 and the dressing was removed. Her head was rotated to the left and the area of the catheter exit site and catheter tunnel was prepped and draped in a sterile manner. Anesthesia was obtained by local infiltration of 1% Xylocaine both around the exit site and along the sides of the catheter tunnel. Once anesthesia was obtained, the area catheter exit site was explored via blunt dissection with small Krile forceps. The area along the tunnel was gently manipulated to break up any adhesions. After completion of blunt dissection. The catheter was grasped from manner and with gentle blood pressure is catheter was removed. Immediately following the removal of the catheter the tip of the catheter was clipped in a sterile manner and sent for culture. Pressure was applied over the lateral aspect over the lateral margin of the right side of the neck for approximately 10 minutes. Sterile dressing was applied to the exit site and also pressure was applied. Following the manual pressure standing was applied for approximately 1 hour. Patient tolerated the procedure well and there were no complications noted. Valeriano Argueta DO May 25, 2016 12:01
--- NOTE | 2016-05-25 13:40 | DRSVH ---
[facility] [address] [place] [address] Echocardiogram Report Name: ARLENE ROMERO MStudy Date: 05/25/2016 Height: 62 in Hospital Exam Location: [facility] Weight: 149 lb Gender: Female BSA: 1.7 m2 : 1975 Age: 40 yrs BP: 96/64 mmHg Reason For Study: Endocarditis Ordering Physician: Performed By: Imelda Claudio Referring Physician: Valeriano Argueta Interpretation Summary The ejection fraction is estimated to be 60-65%. Consider DEEPIKA if clinically indicated There is no significant valvular heart disease. Procedure: A two-dimensional transthoracic echocardiogram with color flow and Doppler was performed. The study quality was technically adequate. There is no prior echocardiogram noted for this patient. The patient was in normal sinus rhythm during the exam. Left Ventricle: The left ventricle is normal in size, wall thickness, and systolic function without any focal wall motion abnormalities. The ejection fraction is estimated to be 60-65%. Assessment of diastolic parameters indicates normal left ventricular diastolic function and normal filling pressures. Right Ventricle: The right ventricle is normal in size, thickness and function. Atria: The left atrial size is normal. Right atrial size is normal. The interatrial septum is intact with no evidence for an atrial septal defect. Mitral Valve: The mitral valve is normal in structure and function. There is no mitral regurgitation noted. Aortic Valve: The aortic valve is trileaflet. The aortic valve opens well. No aortic regurgitation is present. Tricuspid Valve: The tricuspid valve is normal in structure and function. No tricuspid regurgitation. Pulmonic Valve: The pulmonic valve is normal in structure and function. There is no pulmonic valvular regurgitation. Great Vessels: The aortic root is normal size. The dimensions of the ascending aorta are normal. The IVC is of normal diameter and collapses greater than 50% with a sniff. This suggests a low right atrial pressure of 3 mm Hg. Pericardium/ Pleura There is no pericardial effusion. There is no pleural effusion. MMode/2D Measurements & Calculations LVIDd: 4.6 cm LA dimension: 4.2 cm RA long axis LVOT diam LVIDs: 2.8 cm FS: 39.0 % LA A2 area: 18.2 cm RA area AoV Opening EPSS: 0.26 cm LA A4 area: 17.3 cm IVSd: 2.7 cm LA length (vol): 5.3 cm: 12.9 cm Ao root diam LVPWd: 1.1 cm LA vol: 50.5 ml RA vol LA vol index : 30.9 ml Aortic Jxn RA : 29.9 ml/m2 : 18.3 mm/ asc Aorta RVDd major Diam: 3.3 cm : 5.7 cm LV goldstein. diameter/BSA LV sys. diameter/BSA RVD1 (basal) RVD2 (mid) (cm/m^2): 2.7 (cm/m^2): 1.7 : 3.3 cm Doppler Measurements & Calculations Ao V2 max MV E max yosef MV E/A: 1.1 PA V2 max : 160.6 cm/sec : 78.4 cm/sec Med Peak E' Yosef : 103.0 cm/sec Ao max PG MV A max yosef PA mean PG : 10.3 mmHg : 69.6 cm/sec E/E' med: 11.5 Ao mean PG MV P1/2t: 58.1 msec MV A dur: 0.14 sec PA Accel Time : 5.0 mmHg : 0.14 sec MV dec time MV P1/2t max yosef Ao V2 mean PA V2 mean : 0.19 sec : 103.1 cm/sec : 70.4 cm/sec MVA(P1/2t): 3.8 cm2 Ao V2 VTI: 31.4 cm PA pr(Accel) : 24.1 mmHg Electronically signed by: Feliberto Robbins on Reading Physician:05/25/2016 01:39 PM
--- NOTE | 2016-05-25 13:44 | NUR ---
Social Work Note: Initial Assessment Data& Assessment: EMR reviewed. SW met with pt at bedside to discuss discharge planning, SW role explained. Snow Ha is a 40 year old female admitted on 05/24/2016 for bacteremia. Pt has Medicare and [employer] supplemental insurance coverage. Pt lives in [place] with her and in laws. Pt is independent at baseline with all ADL's. Pt does not use any DME. Pt denies HH or SNF hx. Pt does not have LTC insurance or VA benefits. Pt is a HD pt at [facility] on . and Sat. Pt plans to discharge pt home when medically ready. SW provided pt with DPOA/Advance Directive paperwork to review and complete when possible. Pt denies any other needs at this time. SW to continue to follow if any needs arise. Plan: Anticipated discharge home via POV when medically ready. Pt denies any other needs at this time. SW to continue to follow if any needs arise. IZA Ward Addendum: 05/25/16 at 1349 by DANIEL METCALF Amended: Links added.
--- NOTE | 2016-05-25 13:56 | PCM.PNMED ---
Subjective Date of Service May 25, 2016 Subjective Snow Ha is a 40 year old female with past medical history significant for ESRD thought to be due to ureteral reflux in childhood currently on hemodialysis who presents for direct admission after it was discover she have Blood cultures growing Gram negative variable rods. She had another episode of diarrhea today, which she describes as loose and "like pudding." She has a mild, intermittent headache, and she has not needed to take any pain reliever for it. She does not have nausea, vomiting, abdominal pain, dysuria, or cough. Exam Vital Signs Vital Sign - Last Date Time Temp Pulse Resp B/P Pulse Ox O2 Delivery O2 Flow Rate FiO2 05/25/16 12:30 36.6 62 16 87/53 97 Room Air Intake and Output 05/24/16 05/24/16 05/25/16 Cumulative From/Thru 15:00 23:00 07:00 05/24/16 16:29 - 05/25/16 05:00 Intake Total 100 ml 100 ml Output Total 75 ml 75 ml Balance 25 ml 25 ml Intake Oral 100 ml 100 ml Output Urine Total 75 ml 75 ml Exam General: No acute distress, well-developed, well-nourished, appropriately interactive HEENT: Normocephalic, atraumatic. External ears without defect. Pupils equal, round, and reactive to light and accommodation. Anicteric sclerae, moist conjunctivae, and no lid lag. Oropharynx moist Neck: Supple with full range of motion. No jugular venous distension. No bruits. No lymphadenopathy or thyromegaly. Right IJ Port-A-Cath with dressings clean dry and intact. Cardiovascular: Regular rate and rhythm with no murmurs, rubs, or gallops appreciated Pulmonary: Clear to auscultation bilaterally with faint upper respiratory wheezing. Productive cough. Normal respiratory effort with no use of accessory muscles. Abdomen: Bowel tones present. Soft, nontender, nondistended. Extremities: Left arm with scarring present from ligation of brachiocephalic fistula. No clubbing, cyanosis, edema, or lymphadenopathy appreciated. Skin: Normal turgor and texture; no rash, ulcers, or subcutaneous nodules appreciated. Neurological: Cranial nerves grossly intact. Normal muscle strength, tone, and bulk. Reflexes, coordination, and sensory function within normal limits. No known gait impairment. Psychiatric: Normal mood and affect. Alert and oriented to person, place, and time. IVs and Medications Medications Reviewed: Medications were reviewed in detail Lab and Diagnostics Result Diagram: 05/25/16 0300 05/25/16 0300 Cardiac Echo Impressions Echocardiogram Report Interpretation Summary The ejection fraction is estimated to be 60-65%. Consider DEEPIKA if clinically indicated There is no significant valvular heart disease. Electronically signed by: Feliberto Robbins on Reading Physician:05/25/2016 01:39 PM Assessment & Plan Snow Ha is a 40 year old female with past medical history significant for ESRD thought to be due to ureteral reflux in childhood currently on hemodialysis who presents for direct admission after it was discover she have Blood cultures growing Gram negative variable rods 1. Gram negative Septicemia. Present on admission. Under therapy Source of infection is unclear but high suspicion for line infection or urinary tract infection. Echocardiogram did not show any valvular heart disease - continue Vancomycin and Ceftazidime IV for empiric antibiotics - Blood cultures requested with in from the periphery and from the catheter for comparison. - UA pyuria ,Urine culture pending - Stool PCR ordered - Nephrology consulted and following and will remove catheter. - Consider discontinuing vancomycin and continue cefepime tomorrow as cultures are resulted 2. Urinary tract infection, acute. -Urinalysis shows small occult blood, leukocyte esterase, and many bacteria. -Urine culture pending but performed after patient started on antibiotics prior to urine obtained 3. End-stage renal disease on hemodialysis Thought to be secondary to ureteral reflux in childhood. Patient on peritoneal dialysis since 2012. Recently switched to hemodialysis because of panniculectomy on 04/15/16. Right IJ tunneled catheter recently in use. - Hemodialysis conducted Monday, , Monday. -Dialysis catheter removed and the tip was sent for culture 4. Chronic Anemia - recently had EGD and colonoscopy which showed Small internal hemorrhoids - no evidence of active bleeding with no melena or hematochezia - likely related to renal disease and Epo as per Nephrology 5. Morbid Obesity - Status post gastric bypass surgery - Status post panniculectomy last month on 04/15/2016. - We will need to monitor incision for any sign of infection. 6. Hypotension, chronic. -Continue home medications of fludrocortisone and midodrine 7. Chronic pain -Continue home medications of oxycodone and tramadol - Acetaminophen as needed for mild pain/fever/headache - Bowel regimen as needed - Antiemetic as needed Patient admitted under inpatient status with expected length of stay > 2 midnights for severity of present symptoms, complexities of treatment plan and risk for adverse event . Disposition: Pending blood cultures and hemodialysis catheter line cultures to help determine proper antibiotic course. VTE Mechanical Devices: Intermittant Pneumatic CD Resuscitation Status: CPR: Attempt Resuscitation Attending Statement patient was seen and examined with Dr Ga on 05/25/16 ,I agree with the history,exam ,assessment and plan as outlined above Yamile Ga DO May 25, 2016 13:56 Donal Kearney MD May 25, 2016 22:31
--- NOTE | 2016-05-25 15:07 | CONS ---
[address] [address] CONSULTATION REPORT PATIENT: ARLENE ROMERO : 1975 MR#: [id number] ADMIT: 05/24/2016 JOB ID: [id number] DATE OF SERVICE: 05/25/2016 RENAL CONSULTATION: HISTORY OF PRESENT ILLNESS: The patient is a very pleasant 40-year-old white female who is being admitted to [facility] for gram-positive bacteremia. She has a history of end-stage renal disease and renal consultation is being sought for further management of her end-stage renal disease. She has a history of end-stage renal disease stemming from a childhood history of ureteral reflux. She has had several admissions in the past for various medical problems. She has been on peritoneal dialysis up until about two months ago. At that time she went underwent a pannus resection following a significant weight loss from a gastric bypass surgery. At that time her peritoneal catheter was removed and an internal jugular tunnelled catheter was placed and she was changed over to hemodialysis. She normally dialyzes three days a week, on Monday, , and Monday. She recently has been having some fever and chills and blood cultures revealed gram-positive cocci. However, I see in the chart that these may also have some component of gram-negative rods. She was given a dose of vancomycin and ceftazidime and following dialysis yesterday was sent for admission. I received a very helpful e-mail from Dr. Puente explaining the situation. We are planning on rechecking her blood cultures in the next several days and once these are negative will put in a new tunneled catheter and give the antibiotics a chance to work. PAST MEDICAL HISTORY: Significant for: 1. End-stage renal disease due to chronic ureteral reflux. 2. Morbid exogenous obesity which has been resolved following a gastric bypass. 3. 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 4. GERD. 5. There is also a history of orthostatic hypotension and possible autonomic dysfunction for which she takes midodrine and Florinef. PAST SURGICAL HISTORY: Significant for gastric bypass surgery approximately two years ago, panniculectomy 6 weeks ago, two sections, a tubal ligation, a left brachiocephalic fistula which has since clotted, and a left nephrectomy. ALLERGIES: GENTAMICIN. FAMILY HISTORY: Remarkable for diabetes and hypertension. SOCIAL HISTORY: She has a history of tobacco use, but currently does not smoke. She does not drink or use illicit drugs. REVIEW OF SYSTEMS: Unremarkable for any severe headache, cough, wheezing, chest pain, worsening lower extremity edema, constipation, or diarrhea. MEDICATIONS: Include calcium carbonate, cefdinir, vitamin D3, and Renvela. PHYSICAL EXAMINATION: Revealed a very pleasant, mildly obese, 40-year-old white female who was alert and oriented x3, in no distress at time my evaluation. Her blood pressure was 81/52 with a pulse rate of 58. HEENT examination is remarkable for pale sclerae. Neck is supple, without adenopathy, thyromegaly, or jugular venous distention. Lungs are clear to auscultation. The area over her right internal jugular tunneled dialysis catheter showed some mild erythema around the exit site but no exudate was noted. Abdomen is soft, without any tenderness, rebound, guarding, masses, or hepatosplenomegaly. Extremities did not show any evidence of any clubbing, cyanosis, or edema. There were no splinter hemorrhages noted. LABORATORY EXAMINATION: This morning her sodium is 138, potassium 4.0, chloride 98, bicarb was 24. BUN and creatinine were 43 and 6.3. White count is 7.7, hemoglobin of 8.8, hematocrit 28.7. Red cell indices and platelet count were normal. IMPRESSION: 1. Bacteremia, probably secondary to infected right internal jugular catheter. 2. End-stage renal disease. 3. Orthostatic hypotension with possible autonomic dysfunction. RECOMMENDATION: I will arrange to remove her tunnelled catheter today and culture the tip. Cultures ordered for the morning. Once the cultures come back negative, then we will insert a new tunneled internal jugular catheter. Once again, I would like to thank you for allowing me to participate in the care of this most pleasant and interesting patient. I will be following her closely with you.
[2016-05-25] MEDS ORDERED: DEXTROSE 5% IV ONE (17:30)
[2016-05-25] MEDS ORDERED: VANCOMYCIN IV ONE ×2 (17:30→17:55)
--- NOTE | 2016-05-25 17:31 | ED.REPORT ---
HPI-Abd Pain F 2 and Over Date of Service May 25, 2016 ED Provider: Rob,Ed MD Nursing Notes Stated Complaint: BACTEREMIA Chief Complaint: General Complaint Allergies: Coded Allergies: gentamicin (Verified Allergy, Severe, SPECIFICIALLY LISTED FROM 08/17 CREAM...RASH, 05/24/16) Scheduled Calcium Acetate (Calcium Acetate) 667 Mg Capsule 2,001 MG PO TID/meals and snacks Calcium Carbonate/Mag Hydrox (Antacid Chewable Tablet) 1 Each Tab.chew 4 EACH PO HS Cholecalciferol (Vitamin D3) (Vitamin D) 50,000 Unit Capsule 50,000 UNIT PO ,Mon,Sa,Orozco Docusate Sodium (Colace) 100 Mg Capsule 200-300 MG PO DAILY Scheduled PRN Acetaminophen (Acetaminophen) 325 Mg Capsule 325-650 MG PO Q4H PRN PRN For Pain Fludrocortisone Acetate (Fludrocortisone Acetate) 0.1 Mg Tablet 0.2 MG PO prn PRN PRN For Hypotension Midodrine (Midodrine) 5 Mg Tablet 2 TAB PO TID PRN PRN For Hypotension Tramadol (Tramadol) 50 Mg Tablet 50 MG PO q6 hours PRN PRN For Pain 1ST LINE FOR PAIN. TAKE OXYCODONE 2ND LINE IF STILL HAVING PAIN IN 2 HRS. oxyCODONE (oxyCODONE) 5 Mg Capsule 5-10 MG PO Q4H PRN PRN For Pain 2ND LINE FOR PAIN. TAKES IF STILL HAVING PAIN 2 HRS POST TRAMADOL. Past Medical History Past Medical History Notes: PCP: Dr. Hines in [place] [employer] Operator: Dr. Mcallister Patient underwent left nephrectomy on 04/16 for renal cell carcinoma Jessica - Dr. Spear Smoking History Former Smoker Physical Exam Initial Vital Signs Vital Signs (First) Date Time Temp Pulse Resp B/P Pulse Ox O2 Delivery O2 Flow Rate FiO2 05/24/16 16:29 36 86 16 98/62 99 Room Air Interpretation & Diagnostics Lab Results Interpretation Result Diagram: 05/25/16 0300 05/25/16 0300 Discharge & Departure Referrals: Cedrick Hines MD (PCP) Valeriano Argueta DO May 25, 2016 17:31
[2016-05-25] MEDS ORDERED: CeFAZolin 1 Gm/50 mL D5W IV Premix IV SCH (18:00)
[2016-05-25] MEDS ORDERED: Vancomycin Inj 500 MG in 0.9% Sodium Chloride 100 ML IV SCH (18:30)
--- NOTE | 2016-05-25 18:44 | NUR ---
Bowels MD ordered bowel care after patient expressed need for it. Pt had 1 episode of diarrhea this shift with a "small amount of dark colored urine." No blood noted in stool. New orders to obtain a stool sample but so far no further BMs.
[2016-05-25] MEDS: Cefepime 1,000 MG in Dextrose 5% Minibag Plus 50 ML IV SCH (20:26)
--- NOTE | 2016-05-25 22:26 | NUR ---
Transfer to 1008 Patient going to transfer to room 1008, informed patient of transfer, report called to Helga MISHRA, all questions answered, patient stable and no distress noted, all belongings to be transferred with patient.
--- NOTE | 2016-05-25 23:12 | NUR ---
Transfer Pt received to 1008. No complaint of pain. She is concerned about drinking "lots of water" b/c "I don't know when my next dialysis will be". Her BP is stable at 99/60. I encouraged her to drink if thirsty but not in excess. Pt agreed. She is up OOB independently. She is aware that she will receive a dose of vancomycin tonight once the cefipime is complete. Will cont to monitor
[2016-05-26] VITALS (7 sets, daily range): BP systolic 99–104; BP diastolic 66–70; PULSE 52–82; RESP 16–20; O2SAT 96–99
[2016-05-26 06:09] LABS: BASOPHILS % (AUTO) 0.9 % (0-3); EOSINOPHILS % (AUTO) 4.3 % (0-5); MONOCYTES % (AUTO) 14.4 % (4-12); Mean Corpuscular Hemoglobin 29.3 pg (27.0-35.0); Mean Corpuscular Volume 95.1 fL (81-100); NEUTROPHILS % (AUTO) 41.2 % (40-74); Platelet Count 225 bil/L (150-400)
[2016-05-26] MEDS: Vancomycin Dose per Pharmacist XX SCH (08:30)
[2016-05-26] MEDS: Ergocalciferol (Vit D2) 50,000 Unit Capsule PO SCH (10:07)
[2016-05-26] MEDS: Heparin 5,000 Unit/mL Inj SUBQ SCH ×2 (10:13→16:47)
--- NOTE | 2016-05-26 11:42 | PCM.PHAPRO ---
Progress Date of Service: May 26, 2016 + Blood cultures with Gram negative Vancomycin Management Per Pharmacy: Indication: Bacteremia in a dialysis patient Age: 40 yo Weight: 67.9 kg Labs: WBC: 4.7 (improved) SrCr: Dialysis Random vanco level: 22.0 Est CrCl: Dialysis on / -- however, RN reports that patient has no site so dialysis schedule is uncertain. Random vancomycin level is within appropriate range. Repeat vancomycin dose due after dialysis. As dialysis schedule is unclear, will defer ordering repeat dose. Pharmacy to continue to monitor and dose vancomycin as needed. Thank you, Abhay Schultz May 26, 2016 11:42
--- NOTE | 2016-05-26 14:11 | NUR ---
Patient's nurse Lelo Loja R.N. called and informed that patient's transesophageal echocardiogram is scheduled for tomorrow at 13:00. Would like patient to be transported to [facility] at 12:30.Pt is to be kept NPO after midnight tonight.
--- NOTE | 2016-05-26 16:00 | PCM.PNMED ---
Subjective Date of Service May 26, 2016 Subjective The cultures on the patient's blood came back positive for Enterobacter cloacae I. It is sensitive to cefepime which we are continuing. I have discussed the case with infectious disease and in light of the central seriousness of this type of infection I will hold off on putting in another tunneled catheter in until Monday. In the meantime tomorrow or Monday L put in a temporary femoral catheter and do a fire on her dialysis treatment treatment and then remove this. Patient states that she is feeling better and still having some occasional chills. Blood cultures have been negative. Exam Vital Signs Vital Sign - Last Date Time Temp Pulse Resp B/P Pulse Ox O2 Delivery O2 Flow Rate FiO2 05/26/16 10:26 36.6 63 20 99/69 99 Room Air Intake and Output 05/25/16 05/25/16 05/26/16 Cumulative From/Thru 15:00 23:00 07:00 05/24/16 16:29 - 05/26/16 05:14 Intake Total 720 ml 2327 ml 3147 ml Output Total 75 ml Balance 720 ml 2327 ml 3072 ml Intake Oral 720 ml 400 ml 1220 ml IV Total 1927 ml 1927 ml Output Urine Total 75 ml # Voids 1 1 2 # Bowel Movements 1 0 1 Exam Neck is supple without adenopathy thyromegaly or jugular venous distention. Lungs were clear to auscultation. Heart is regular and rhythmical with a soft systolic murmur. Abdomen soft without any tenderness or rebound guarding masses or hepatosplenomegaly. Extremities do not show any evidence of any clubbing cyanosis or edema. There is good and there is no evidence of any rashes. Lab and Diagnostics Result Diagram: 05/26/1630 05/26/1630 Cardiac Echo Impressions Echocardiogram Report Interpretation Summary The ejection fraction is estimated to be 60-65%. Consider DEEPIKA if clinically indicated There is no significant valvular heart disease. Electronically signed by: Feliberto Robbins on Reading Physician:05/25/2016 01:39 PM Assessment & Plan Impression #1 bacteremia with Enterobacter cloacae I #2 end-stage renal disease dialysis dependent Recommendations #1 as noted above I will hold off on having a tunnel catheter inserted until Monday and plan to put a temporary and tomorrow or Monday. Also in light of the purulent nature of the organism I have also asked cardiology to do a DEEPIKA to make sure that there is no evidence of any valvular vegetations. Based on this echo will determine how long she will be getting IV antibiotics. VTE Mechanical Devices: Intermittant Pneumatic CD Resuscitation Status: CPR: Attempt Resuscitation Valeriano Argueta DO May 26, 2016 16:00
[2016-05-26] MEDS ORDERED: 0.9% Sodium Chloride 100 ML ONE (18:45)
[2016-05-26] MEDS: Cefepime 1,000 MG in Dextrose 5% Minibag Plus 50 ML IV SCH (18:52)
--- NOTE | 2016-05-26 23:53 | PCM.PNMED ---
Subjective Date of Service May 26, 2016 Subjective Patient is in good spirits and feels much better now that her hemodialysis catheter has been removed and she has been on antibiotics intravenously. Exam Vital Signs Vital Sign - Last Date Time Temp Pulse Resp B/P Pulse Ox O2 Delivery O2 Flow Rate FiO2 05/26/16 20:39 36.4 82 17 100/66 96 Room Air Intake and Output 05/25/16 05/25/16 05/26/16 Cumulative From/Thru 14:59 22:59 06:59 05/24/16 16:29 - 05/26/16 05:14 Intake Total 720 ml 2327 ml 3147 ml Output Total 75 ml Balance 720 ml 2327 ml 3072 ml Intake Oral 720 ml 400 ml 1220 ml IV Total 1927 ml 1927 ml Output Urine Total 75 ml # Voids 1 1 2 # Bowel Movements 1 0 1 Exam General: Patient is in no apparent distress. HEENT: Head is atraumatic and normocephalic. Eyes: Pupils are equally round and reactive to light and accommodation. Extraocular muscles are intact. Sclera are white, anicteric. Subconjunctival mucosa is pink. Ears and nose are unremarkable. Oropharynx: There is no mucosal lesions, there is no thrush, there is no pharyngitis. Neck: Is supple, there are no nodes, or masses or tenderness. Chest: Is clear to auscultation and percussion. There are no rales, rhonchi, wheezes or rubs. Hemodialysis catheter site is unremarkable there is no evidence of tunnel infection Heart: Rate, rhythm is regular. There is no new murmur, rub or gallop. Abdomen: Good bowel sounds are present. Abdomen is significant for an absent umbilicus as it was surgically removed removed. The abdomen is obese still and soft, nontender, with organomegaly or masses appreciated. Extremities: Are symmetrical and well perfused. There is no edema, there is no cellulitis, no rash. Neurologic: There are no focal neurological deficits. Cranial nerves II through XII are intact. There are no sensory or motor deficits. Psychiatric: Patients mood is calm and shows no sign of agitation. Genital: Deferred Rectal: Deferred Lab and Diagnostics Result Diagram: 05/26/1652905/26/16529 Microbiology RUN DATE: 05/26/16 [facility] LIVE PAGE 1 RUN TIME: 52 Specimen Inquiry PHYSICIAN Name: SNOW ROMERO Age/Sex: 40/F Attend Dr: Fabricio Gee MD Acct: [id number] Unit: [id number] Status: DEP ER Location: SED Re05/23/16 Disch: Specimen: [id number] Collected: 05/23/16 Status: COMP Req#: [id number] Received: 05/23/16 Source: BLOOD Sp Desc : HASEEB Cox Dr: Katja Spear Ordered: FLORECITA Comments: Collected by Nurse/Unit? Y/N N Comment: nicki jiang Procedure Result Verified Site Microbiology CRUZ CULTURE BLOOD Final 05/26/16-651 Organism 1 ENTEROBACTER CLOACAE COMPLEX GRAM STAIN RESULT GRAM VARIABLE RODS BC BOTTLE Isolated from Anaerobic Bottle of Set Drawn DATE CALLED: 05/24/16 TIME CALLED: 0920 CALLED BY: SHELLEY FLOOR/DOCTOR: LEIA/CHAITANYA Chu BC READ BACK YES TYPE OF DRAW PERIPHERAL DRAW TIME OF POSITIVITY 0911 GRAM STAIN RESULT GRAM VARIABLE RODS BC BOTTLE2 Isolated from Aerobic Bottle of Set Drawn DATE CALLED: 05/24/16 TIME CALLED: 1230 CALLED BY: SHELLEY FLOOR/DOCTOR: LEIA/CYNDIE Sy BC READ BACK YES TYPE OF DRAW PERIPHERAL DRAW TIME OF POSITIVITY 1218 ISOLATED FROM THREE OF FOUR BOTTLES COLLECTED 05/23 1. ENTEROBACTER CLOACAE COMPLEX M.I.C Interp --------- ------ * AMIKACIN <=2 S * CEFAZOLIN >=64 R * CEFEPIME <=1 S * CEFOXITIN >=64 R * CEFTRIAXONE 4 R * CIPROFLOXACIN <=0.25 S * ERTAPENEM <=0.5 S * GENTAMICIN <=1 S * MEROPENEM <=0.25 S CONTINUED ON NEXT PAGE RUN DATE: 05/26/16 [facility] LIVE PAGE 2 RUN TIME: 651 Specimen Inquiry PHYSICIAN Patient: SNOW ROMERO [id number] (Continued) Specimen: [id number] Collected: 05/23/16 Received: 05/23/16 (Continued) Procedure Result Verified Site CRUZ CULTURE BLOOD Final (continued) 05/26/16 1. ENTEROBACTER CLOACAE COMPLEX (continued) M.I.C Interp --------- ------ * TOBRAMYCIN <=1 S * TRIMETHOPRIM/SULFAMETHOXAZOLE <=20 S * PIPERACILLIN/TAZOBACTAM 64 I Cardiac Echo Impressions Echocardiogram Report Interpretation Summary The ejection fraction is estimated to be 60-65%. Consider DEEPIKA if clinically indicated There is no significant valvular heart disease. Electronically signed by: Feliberto Robbins on Reading Physician:05/25/2016 01:39 PM Assessment & Plan Snow Romero is a 40 year old female with past medical history significant for ESRD thought to be due to ureteral reflux in childhood currently on hemodialysis who presents for direct admission after it was discovered she have Blood cultures growing Gram negative variable rods 1. Gram negative Septicemia. With Enterobacter cloaca Present on admission. Under therapy Source of infection is unclear but high suspicion for line infection - We will continue Ceftazidime IV for empiric antibiotics - Blood cultures requested with in from the periphery and from the catheter for comparison - [facility]all of Nephrology as been consulted and hemodialysis catheter was removed and tip was cultured. - We will check culture results. 2. End-stage renal disease on hemodialysis Thought to be secondary to ureteral reflux in childhood. Patient on peritoneal dialysis since 2012. Recently switched to hemodialysis because of panniculectomy on 04/15/16. Right IJ tunneled catheter currently in use - Hemodialysis conducted Monday, , Monday. - We will discuss with Dr Argueta for inpatient dialysis orders - Kendall is seen the patient more than once today. 3. Chronic Anemia - The patient recently had EGD and colonoscopy which showed Small internal hemorrhoids - There is no evidence of active bleeding with no melena or hematochezia - The patient's anemia is ikely related to renal disease and Epo as per Nephrology 4. Morbid Obesity - Status post gastric bypass surgery - Status post panniculectomy last month on 04/15/2016. - We will need to monitor incision for any sign of infection. - Acetaminophen as needed for mild pain/fever/headache - Bowel regimen as needed - Antiemetic as needed Disposition; visual continue current therapy and likely be dialyzed on a temporary hemodialysis catheter over the weekend, with the plan that patient will have a tunneled hemodialysis catheter placed on Monday. Patient will likely go home after that if stable. Pain Evaluation: Adequate Pain Control VTE Mechanical Devices: Intermittant Pneumatic CD Resuscitation Status: CPR: Attempt Resuscitation Robert Huizar MD May 26, 2016 23:53
[2016-05-27] VITALS (13 sets, daily range): BP systolic 88–130; BP diastolic 60–86; PULSE 52–102; RESP 14–20; O2SAT 95–99
[2016-05-27] MEDS: Heparin 5,000 Unit/mL Inj SUBQ SCH ×3 (00:57→16:30)
--- NOTE | 2016-05-27 05:57 | NUR ---
activity pt had an uneventful night. she had no c/o N/V or pain. VSS and afebrile. she has been NPO since midnight. requesting to not be disturbed this AM so she can sleep through breakfast time until her procedure at noon. care continues.
[2016-05-27 06:03] LABS: Mean Corpuscular Hemoglobin 28.9 pg (27.0-35.0); Mean Corpuscular Volume 92.7 fL (81-100); Platelet Count 217 bil/L (150-400)
[2016-05-27 06:18] LABS: Magnesium 2.4 mg/dL (1.6-2.6); Phosphorus 3.9 mg/dL (2.5-4.9)
[2016-05-27 06:49] LABS: BASOPHILS % (AUTO) 0 % (0-3); EOSINOPHILS % (AUTO) 6 % (0-5); MONOCYTES % (AUTO) 10 % (4-12); NEUTROPHILS % (AUTO) 46 % (40-74)
[2016-05-27] MEDS: Ergocalciferol (Vit D2) 50,000 Unit Capsule PO SCH (08:30)
[2016-05-27] MEDS: Vancomycin Dose per Pharmacist XX SCH (08:30)
--- NOTE | 2016-05-27 11:00 | NUR ---
Procedure Around 1000 GARRETT Cheung and 2 others in room performing Steril procedure for temporary Femoral cath for dialysis. Procedure took about 1hr. One failed attempt on right side. Puncture site Right open to air. No swelling. hematoma or bleeding noted. Femoral Cath located on Left C/D/I dressing. No Swelling, hematoma, or bleeding noted. Per pt Denies CP, SOB, Nausea, Lightheaded and or pain. Advised pt of all precautions post femoral cath. Will continue to monitor sites every 15 min for next hr. Care continues Addendum: 05/27/16 at 1311 by THAI HAWK RN Femoral sites checked every 15min for 1hr post procedure. No changes, swelling, hematoma, or bleeding noted. Pt declines any CP, SOB, Pain, or nausea. Care continues
--- NOTE | 2016-05-27 12:20 | NUR ---
[facility] Pt taken via bed to [facility] for DEEPIKA. Plan as of right now dialysis after DEEPIKA is complete. Hand off to Jose MISHRA.
[2016-05-27] MEDS ORDERED: 0.9% Sodium Chloride 500 ML ONE (12:59)
[2016-05-27] MEDS ORDERED: fentaNYL-PF 50 mCg/mL 2 mL Inj ONE (12:59)
--- NOTE | 2016-05-27 14:08 | PCM.PHAPRO ---
Progress Date of Service: May 27, 2016 + Blood cultures with Gram negative Vancomycin Management Per Pharmacy: Indication: Bacteremia in a dialysis patient Age: 40 yo Weight: 70.1 kg Labs: WBC: 4.2 (improved) SrCr: Dialysis Random vanco level: 22.0 (on 05/26/16) Dialysis was delayed due to loss of site. Per dialysis nurse, patient to receive dialysis today. Pertinent info: RN reports that patient had redness at infusion site following last administration of vancomycin. On review, vancomycin was diluted in 100 mLs of NS. Give vancomycin 500 mg one time after dialysis. Due to history of redness at infusion site with higher concentration per RN, will dilute with 250 mL of D5W. Pharmacy will continue to monitor daily and dose vancomycin as needed. Thank you, Abhay Schultz May 27, 2016 14:08
--- NOTE | 2016-05-27 14:15 | NUR ---
pt arrived to [facility] from [facility] for DIALYSIS alert and denies complaints tele monitor technician informed of temp room location report requested from primary [employer] forest[employer] conservation worker RN at bedside
--- NOTE | 2016-05-27 14:44 | DRSVH ---
Study location field not populated with appropriate location Echocardiogram Report Name: ARLENE ROMERO MStudy Date: 0 05/27/2016 Height: 62 in Hospital Weight: 149 lb Gender: Female BSA: 1.7 m2 : 1975 Age: 40 yrs Performed By: DAO Referring Physician: VANE CRAWFORD Interpretation Summary The left ventricular ejection fraction is grossly normal. The mitral valve leaflets appear normal. There is no evidence of stenosis, fluttering, or prolapse. The aortic valve is normal in structure and function. The tricuspid valve is normal. The pulmonic valve is not well seen, but is grossly normal. No evidence of valvular endocarditis Left Ventricle: The left ventricular ejection fraction is grossly normal. Atria: No thrombus is detected in the left atrial appendage. Mitral Valve: The mitral valve leaflets appear normal. There is no evidence of stenosis, fluttering, or prolapse. Aortic Valve: The aortic valve is normal in structure and function. Tricuspid Valve: The tricuspid valve is normal. Pulmonic Valve: The pulmonic valve is not well seen, but is grossly normal. Electronically signed by: Feliberto Robbins on Reading Physician:05/27/2016 02:43 PM
[2016-05-27] MEDS ORDERED: VANCOMYCIN IV ONE (15:00)
[2016-05-27] MEDS ORDERED: DEXTROSE 5% IV ONE (15:00)
--- NOTE | 2016-05-27 15:11 | PCM.PNMED ---
Subjective Date of Service May 27, 2016 Subjective His follow-up blood cultures remain negative. She offers no new complaints other than some occasional chills. There is no history of any chest pain, shortness of breath, nausea, vomiting or diarrhea. Exam Vital Signs Vital Sign - Last Date Time Temp Pulse Resp B/P Pulse Ox O2 Delivery O2 Flow Rate FiO2 05/27/16 13:43 72 14 115/70 97 Room Air 05/27/16 13:27 3.00 05/27/16 11:00 36.5 Intake and Output 05/26/16 05/26/16 05/27/16 Cumulative From/Thru 14:59 22:59 06:59 05/24/16 16:29 - 05/27/16 04:36 Intake Total 200 ml 278 ml 3625 ml Output Total 75 ml 200 ml 350 ml Balance 125 ml 78 ml 3275 ml Intake Oral 200 ml 218 ml 1638 ml IV Total 60 ml 1987 ml Output Urine Total 75 ml 200 ml 350 ml # Voids 2 # Bowel Movements 0 1 Exam Neck is supple without adenopathy thyromegaly or jugular venous distention. Lungs are clear to auscultation. Heart is regular and rhythmic systolic murmur. Abdomen is soft without any tenderness rebound guarding masses or hepatosplenomegaly. Extremities show any evidence of any clubbing cyanosis or edema. Lab and Diagnostics Result Diagram: 05/27/16 0545 05/27/16 0500 Microbiology RUN DATE: 05/26/16 [facility] LAB LIVE PAGE 1 RUN TIME: 06 Specimen Inquiry PHYSICIAN Name: ARLENE ROMERO Lolita Age/Sex: 40/F Attend Dr: Fabricio Gee MD Acct: [id number] Unit: [id number] Status: [facility] Location: SED Re05/23/16 Disch: Specimen: [id number] Collected: 05/23/16 Status: LUCY Req#: [id number] Received: 05/23/16 Source: BLOOD Sp Desc : HASEEB Cox Dr: Katja Spear Ordered: Comments: Collected by Nurse/Unit? Y/N N Comment: b Procedure Result Verified Site Microbiology CRUZ CULTURE BLOOD Final 05/26/16-0652 Organism 1 ENTEROBACTER CLOACAE COMPLEX GRAM STAIN RESULT GRAM VARIABLE RODS BC BOTTLE Isolated from Anaerobic Bottle of Set Drawn DATE CALLED: 05/24/16 TIME CALLED: 0920 CALLED BY: SHELLEY FLOOR/DOCTOR: LEIA/CHAITANYA Chu BC READ BACK YES TYPE OF DRAW PERIPHERAL DRAW TIME OF POSITIVITY 0911 GRAM STAIN RESULT GRAM VARIABLE RODS BC BOTTLE2 Isolated from Aerobic Bottle of Set Drawn DATE CALLED: 05/24/16 TIME CALLED: 1230 CALLED BY: SHELLEY FLOOR/DOCTOR: LEIA/CYNDIE BERNABE READ BACK YES TYPE OF DRAW PERIPHERAL DRAW TIME OF POSITIVITY 1218 ISOLATED FROM THREE OF FOUR BOTTLES COLLECTED 05/23 1. ENTEROBACTER CLOACAE COMPLEX M.I.Luis Beltran --------- ------ * AMIKACIN <=2 S * CEFAZOLIN >=64 R * CEFEPIME <=1 S * CEFOXITIN >=64 R * CEFTRIAXONE 4 R * CIPROFLOXACIN <=0.25 S * ERTAPENEM <=0.5 S * GENTAMICIN <=1 S * MEROPENEM <=0.25 S CONTINUED ON NEXT PAGE RUN DATE: 05/26/16 [facility] LIVE PAGE 2 RUN TIME: 651 Specimen Inquiry PHYSICIAN Patient: ARLENE ROMERO [id number] (Continued) Specimen: [id number] Collected: 05/23/16 Received: 05/23/16 (Continued) Procedure Result Verified Site CRUZ CULTURE BLOOD Final (continued) 05/26/16-651 1. ENTEROBACTER CLOACAE COMPLEX (continued) M.I.C Interp --------- ------ * TOBRAMYCIN <=1 S * TRIMETHOPRIM/SULFAMETHOXAZOLE <=20 S * PIPERACILLIN/TAZOBACTAM 64 I Cardiac Echo Impressions Echocardiogram Report Interpretation Summary The ejection fraction is estimated to be 60-65%. Consider DEEPIKA if clinically indicated There is no significant valvular heart disease. Electronically signed by: Feliberto Robbins on Reading Physician:05/25/2016 01:39 PM Assessment & Plan Impression #1 end-stage renal disease dialysis dependent #2 bacteremia due to Enterobacter cloacae UTI on subsequent follow-up negative cultures Recommendations number 1O head and place a temporary dialysis catheter in her today for her treatment and then have this removed following the treatment. #2 the patient to be dialyzed today for 5 hours on a revaclear max dialyzer, 400 blood flow rate 600 dialysate flow rate 2 potassium bath, no heparin, and about 3 L to be removed. The treatment is completed I will have the dialysis catheter removed. She is scheduled to have a tunnel dialysis catheter placed on Monday. Following this she can be discharged. VTE Mechanical Devices: Intermittant Pneumatic CD Resuscitation Status: CPR: Attempt Resuscitation Valeriano Argueta DO May 27, 2016 15:11
--- NOTE | 2016-05-27 15:18 | PCM.PROC ---
Procedure Note Pre Procedure Diagnosis: End-stage renal disease which is dialysis dependent placement of a temporary dialysis catheter for gram-negative bacteremia Post Procedure Diagnosis: Same Procedure: Insertion of a temporary femoral dialysis catheter. Provider and Management Trainee Marketing: Valeriano Argueta D.O. and Adriana Bocanegra D.O. Indication for Procedure: End-stage renal disease Procedural Analgesia: See Proceedure note Procedure Details: Informed consent was obtained from the patient. An attempt was made to place a temporary dialysis catheter in the patient's right femoral vein but this was abandoned due to an inadvertent arterial puncture. Pressure was applied over the right inguinal area for 15 minutes and there does not appear to be any ecchymosis or blood loss from this. The patient was given 0.5 mg of Ativan IV followed approximately 20 minutes later with another 1 mg of Ativan. Left inguinal area was palpated and scanned with a vascular ultrasound to isolate the femoral artery and vein. Once this was obtained. Marked and area was then prepped and draped in a sterile manner. Local infiltration with with 5 mL 1% lidocaine accomplished on the local anesthesia. The area was once again we scanned and the femoral vein was visualized. A Cook needle was connected to a 10 mL syringe and flushed with saline. Using direct ultrasound visualization the left femoral vein was entered with a Cook needle was noted by a flash of venous blood. All needle and place the syringe was disconnected and a flexible guidewire was passed through the needle and the needle was subsequently withdrawn. A small incision was made on the inferior aspect over the guidewire and a small flexible dilator was then passed through the guidewire into the vessel and subsequently withdrawn leaving the guidewire in place. A larger dilator was then passed into the vein and withdrawn and the previous manner followed by a third larger dilator. A 24 cm Mahurkar catheter which had previously been flushed with saline was then passed through the guidewire into the vein and the guidewire was withdrawn through the home. Flushed with saline Strauss Herman was applied, and serial Inman were then applied. Catheter was sutured into place with 2 erupted sutures using 4-0 silk. The area was cleaned once again and then a sterile dressing was applied. The patient tolerated the procedure well and no complications noted. Post Procedure Plan: Patient's going to dialysis to receive her dialysis treatment. Valeriano Argueta DO May 27, 2016 15:18
--- NOTE | 2016-05-27 18:37 | NUR ---
transfer of care to evening MOC charge, MG RN
[2016-05-27] MEDS: Cefepime 1,000 MG in Dextrose 5% Minibag Plus 50 ML IV SCH (19:30)
--- NOTE | 2016-05-27 20:02 | NUR ---
Dialysis note: 5 hr tx. Net UF 2.8 removed. Hypotensive throughout tx but without signs or symptoms. 87/61 HR 87. Vancomycin given last 1 1/2 hr of tx, Cefepime 1 Gm given post tx. Femoral cath pulled as ordered. pressure applied and site secured. Post tx BP 84/58 HR 72. Report given to DANICA Amos and pt returned to floor stable. Please see DTR for complete record of VS.
--- NOTE | 2016-05-27 23:06 | PCM.PNMED ---
Subjective Date of Service May 27, 2016 Subjective Patient was seen on hemodialysis. She was complaining of diaphoresis with sweat just pouring off of her and chills. Exam Vital Signs Vital Sign - Last Date Time Temp Pulse Resp B/P Pulse Ox O2 Delivery O2 Flow Rate FiO2 05/27/16 20:22 36.8 52 18 88/63 98 Room Air 05/27/16 13:27 3.00 Intake and Output 05/26/16 05/26/16 05/27/16 Cumulative From/Thru 15:00 23:00 07:00 05/24/16 16:29 - 05/27/16 04:36 Intake Total 200 ml 278 ml 3625 ml Output Total 75 ml 200 ml 350 ml Balance 125 ml 78 ml 3275 ml Intake Oral 200 ml 218 ml 1638 ml IV Total 60 ml 1987 ml Output Urine Total 75 ml 200 ml 350 ml # Voids 2 # Bowel Movements 0 1 Exam General: Patient is in minimal distress. She is complaining of diaphoresis and chills on dialysis HEENT: Head is atraumatic and normocephalic. Eyes: Pupils are equally round and reactive to light and accommodation. Extraocular muscles are intact. Sclera are white, anicteric. Subconjunctival mucosa is pink. Ears and nose are unremarkable. Oropharynx: There is no mucosal lesions, there is no thrush, there is no pharyngitis. Neck: Is supple, there are no nodes, or masses or tenderness. Chest: Is clear to auscultation and percussion. There are no rales, rhonchi, wheezes or rubs. Hemodialysis catheter site is unremarkable there is no evidence of tunnel infection Heart: Rate, rhythm is regular. There is no new murmur, rub or gallop. Abdomen: Good bowel sounds are present. Abdomen is significant for an absent umbilicus as it was surgically removed removed. The abdomen is obese still and soft, nontender, with organomegaly or masses appreciated. Extremities: Are symmetrical and well perfused. There is no edema, there is no cellulitis, no rash. Patient has a temporary hemodialysis catheter in her left femoral area Neurologic: There are no focal neurological deficits. Cranial nerves II through XII are intact. There are no sensory or motor deficits. Psychiatric: Patients mood is calm and shows no sign of agitation. Genital: Deferred Rectal: Deferred Lab and Diagnostics Result Diagram: 05/27/16 0545 05/27/16 0500 Microbiology RUN DATE: 05/26/16 [facility] LIVE PAGE 1 RUN TIME: 651 Specimen Inquiry PHYSICIAN Name: SNOW ROMERO Lolita Age/Sex: 40/F Attend Dr: Fabricio Gee MD Acct: [id number] Unit: [id number] Status: CHLOÉ ER Location: SED Re05/23/16 Disch: Specimen: [id number] Collected: 05/23/16 Status: LUCY Revane#: [id number] Received: 05/23/16 Source: BLOOD Sp Desc : AA Brooke Dr: Katja Spear Ordered: FLORECITA Comments: Collected by Nurse/Unit? Y/N N Comment: nicki jiang Procedure Result Verified Site Microbiology CRUZ CULTURE BLOOD Final 05/26/16-0652 Organism 1 ENTEROBACTER CLOACAE COMPLEX GRAM STAIN RESULT GRAM VARIABLE RODS BC BOTTLE Isolated from Anaerobic Bottle of Set Drawn DATE CALLED: 05/24/16 TIME CALLED: 0920 CALLED BY: SHELLEY FLOOR/DOCTOR: LEIA/CHAITANYA Chu BC READ BACK YES TYPE OF DRAW PERIPHERAL DRAW TIME OF POSITIVITY 0911 GRAM STAIN RESULT GRAM VARIABLE RODS BC BOTTLE2 Isolated from Aerobic Bottle of Set Drawn DATE CALLED: 05/24/16 TIME CALLED: 1230 CALLED BY: SHELLEY FLOOR/DOCTOR: LEIA/CYNDIE Sy BC READ BACK YES TYPE OF DRAW PERIPHERAL DRAW TIME OF POSITIVITY 1218 ISOLATED FROM THREE OF FOUR BOTTLES COLLECTED 05/23 1. ENTEROBACTER CLOACAE COMPLEX M.I.C Interp --------- ------ * AMIKACIN <=2 S * CEFAZOLIN >=64 R * CEFEPIME <=1 S * CEFOXITIN >=64 R * CEFTRIAXONE 4 R * CIPROFLOXACIN <=0.25 S * ERTAPENEM <=0.5 S * GENTAMICIN <=1 S * MEROPENEM <=0.25 S CONTINUED ON NEXT PAGE RUN DATE: 05/26/16 [facility] LIVE PAGE 2 RUN TIME: 651 Specimen Inquiry PHYSICIAN Patient: SNOW ROMERO [id number] (Continued) Specimen: [id number] Collected: 05/23/16 Received: 05/23/16 (Continued) Procedure Result Verified Site CRUZ CULTURE BLOOD Final (continued) 05/26/16-651 1. ENTEROBACTER CLOACAE COMPLEX (continued) M.I.C Interp --------- ------ * TOBRAMYCIN <=1 S * TRIMETHOPRIM/SULFAMETHOXAZOLE <=20 S * PIPERACILLIN/TAZOBACTAM 64 I Cardiac Echo Impressions Echocardiogram Report Interpretation Summary The ejection fraction is estimated to be 60-65%. Consider DEEPIKA if clinically indicated There is no significant valvular heart disease. Electronically signed by: Feliberto Robbins on Reading Physician:05/25/2016 01:39 PM Assessment & Plan Snow Romero is a 40 year old female with past medical history significant for ESRD thought to be due to ureteral reflux in childhood currently on hemodialysis who presents for direct admission after it was discovered she have Blood cultures growing Gram negative variable rods 1. Gram negative Septicemia. With Enterobacter cloaca Present on admission. Under therapy Source of infection is unclear but high suspicion for line infection - We will continue Cefepime IV for empiric antibiotics - Blood cultures requested with in from the periphery and from the catheter for comparison - [facility] of Nephrology as been consulted and hemodialysis catheter was removed and tip was cultured. - We will check culture results. 2. End-stage renal disease on hemodialysis Thought to be secondary to ureteral reflux in childhood. Patient on peritoneal dialysis since 2012. Recently switched to hemodialysis because of panniculectomy on 04/15/16. Right IJ tunneled catheter was removed and catheter tip was cultured(set up today). - Hemodialysis normally scheduled for Monday, , Monday. - Patient had a temporary hemodialysis catheter placed today for a 5 hour run with removal of 3 L of fluid. The temporary hemodialysis catheter will be removed after dialysis today - Dr. Argueta has made arrangements for the patient to have a tunneled hemodialysis catheter placed on Monday. Patient will receive IV antibiotic over the weekend with no foreign body in place. 3. Chronic Anemia - The patient recently had EGD and colonoscopy which showed Small internal hemorrhoids - There is no evidence of active bleeding with no melena or hematochezia - The patient's anemia is ikely related to renal disease and Epo as per Nephrology 4. Morbid Obesity - Status post gastric bypass surgery - Status post panniculectomy last month on 04/15/2016. - We will need to monitor incision for any sign of infection. - Acetaminophen as needed for mild pain/fever/headache - Bowel regimen as needed - Antiemetic as needed Disposition; will continue current therapy and patient has been dialyzed with a temporary dialysis catheter today with a catheter being removed after dialysis. The patient will then have a tunneled hemodialysis catheter placed on Monday. Patient will likely go home after that if stable. Pain Evaluation: Adequate Pain Control VTE Prophylaxis: Sub-Q Heparin (Unfractionated) VTE Mechanical Devices: Intermittant Pneumatic CD Resuscitation Status: CPR: Attempt Resuscitation Robert Huizar MD May 27, 2016 23:06
[2016-05-28] VITALS (7 sets, daily range): BP systolic 83–102; BP diastolic 52–68; PULSE 61–83; RESP 16–18; O2SAT 95–100
--- NOTE | 2016-05-28 05:21 | NUR ---
CHILD CARE SPECIALIST; reports sinus rhythm 66.
[2016-05-28 05:26] LABS: Mean Corpuscular Hemoglobin 29.6 pg (27.0-35.0); Mean Corpuscular Volume 93.1 fL (81-100); Platelet Count 240 bil/L (150-400)
--- NOTE | 2016-05-28 05:27 | NUR ---
GI; npo after midnight. No c/o nausea or vomiting. Anxious at times. Agreed to take po meds at bedtime. Addendum: 05/28/16 at 0530 by JOSH ALFORD RN DISREGARD ABOVE; WRONG PATIENT.
--- NOTE | 2016-05-28 05:31 | NUR ---
ACTIVITY; pt on bedrest for a couple of hours. Bilateral groin punctures c/d/i w/ no swelling, bruising noted. Pain rx given for c/o discomfort at groin sites especially left site pt stated with relief.
[2016-05-28 05:45] LABS: BASOPHILS % (AUTO) 0 % (0-3); EOSINOPHILS % (AUTO) 2 % (0-5); MONOCYTES % (AUTO) 8 % (4-12); NEUTROPHILS % (AUTO) 61 % (40-74)
[2016-05-28 05:47] LABS: Magnesium 2.2 mg/dL (1.6-2.6); Phosphorus 4.8 mg/dL (2.5-4.9)
[2016-05-28] MEDS: Vancomycin Dose per Pharmacist XX SCH (08:30)
[2016-05-28] MEDS: Heparin 5,000 Unit/mL Inj SUBQ SCH ×2 (10:48→20:51)
[2016-05-28] MEDS: Ergocalciferol (Vit D2) 50,000 Unit Capsule PO SCH (10:49)
--- NOTE | 2016-05-28 11:00 | PCM.PNMED ---
Subjective Date of Service May 28, 2016 Subjective Patient continues to do well. Her subsequent blood cultures have been repeatedly negative however the tip of the tunneled catheter is positive for Enterobacter S peripheral blood. The patient is afebrile and is feeling quite well. She tolerated her dialysis yesterday without any significant problem and her temporary dialysis catheter was removed without incident. The DEEPIKA was done and there was no evidence of any vegetations. Exam Vital Signs Vital Sign - Last Date Time Temp Pulse Resp B/P Pulse Ox O2 Delivery O2 Flow Rate FiO2 05/28/16 09:04 75 05/28/16 05:58 36.7 18 83/52 100 Room Air 05/27/16 13:27 3.00 Intake and Output 05/27/16 05/27/16 05/28/16 Cumulative From/Thru 15:00 23:00 07:00 05/24/16 16:29 - 05/27/16 23:29 Intake Total 0 ml 3625 ml Output Total 2800 ml 3150 ml Balance -2800 ml 475 ml Intake Oral 0 ml 1638 ml IV Total 1987 ml Output Urine Total 0 ml 350 ml Ultrafiltrate 2800 ml 2800 ml # Voids 2 # Bowel Movements 1 Exam Lungs are clear to auscultation. Heart was regular with a soft systolic murmur. Abdomen soft without any tenderness or rebound guarding or masses. She is not showing any obvious edema. Lab and Diagnostics Result Diagram: 05/28/1651405/28/16514 Microbiology RUN DATE: 05/26/16 [facility] LAB LIVE PAGE 1 RUN TIME: 0652 Specimen Inquiry PHYSICIAN Name: ARLENE ROMERO Age/Sex: 40/F Attend Dr: Fabricio Gee MD Acct: [id number] Unit: [id number] Status: [facility] ER Location: SED Re05/23/16 Disch: Specimen: [id number] Collected: 05/23/16 Status: COMP Christinaq#: [id number] Received: 05/23/16 Source: BLOOD Sp Desc : HASEEB Cox Dr: Katja Spear Ordered: Comments: Collected by Nurse/Unit? Y/N N Comment: b Procedure Result Verified Site Microbiology CRUZ CULTURE BLOOD Final 05/26/16-651 Organism 1 ENTEROBACTER CLOACAE COMPLEX GRAM STAIN RESULT GRAM VARIABLE RODS BC BOTTLE Isolated from Anaerobic Bottle of Set Drawn DATE CALLED: 05/24/16 TIME CALLED: 0920 CALLED BY: SHELLEY FLOOR/DOCTOR: LEIA/CHAITANYA Chu BC READ BACK YES TYPE OF DRAW PERIPHERAL DRAW TIME OF POSITIVITY 0911 GRAM STAIN RESULT GRAM VARIABLE RODS BC BOTTLE2 Isolated from Aerobic Bottle of Set Drawn DATE CALLED: 05/24/16 TIME CALLED: 1230 CALLED BY: SHELLEY FLOOR/DOCTOR: LEIA/CYNDIE Sy BC READ BACK YES TYPE OF DRAW PERIPHERAL DRAW TIME OF POSITIVITY 1218 ISOLATED FROM THREE OF FOUR BOTTLES COLLECTED 05/23 1. ENTEROBACTER CLOACAE COMPLEX NoahI.C Interp --------- ------ * AMIKACIN <=2 S * CEFAZOLIN >=64 R * CEFEPIME <=1 S * CEFOXITIN >=64 R * CEFTRIAXONE 4 R * CIPROFLOXACIN <=0.25 S * ERTAPENEM <=0.5 S * GENTAMICIN <=1 S * MEROPENEM <=0.25 S CONTINUED ON NEXT PAGE RUN DATE: 05/26/16 [facility] LAB LIVE PAGE 2 RUN TIME: 651 Specimen Inquiry PHYSICIAN Patient: ARLENE ROMERO [id number] (Continued) Specimen: [id number] Collected: 05/23/16 Received: 05/23/16 (Continued) Procedure Result Verified Site CRUZ CULTURE BLOOD Final (continued) 05/26/16-651 1. ENTEROBACTER CLOACAE COMPLEX (continued) M.I.C Interp --------- ------ * TOBRAMYCIN <=1 S * TRIMETHOPRIM/SULFAMETHOXAZOLE <=20 S * PIPERACILLIN/TAZOBACTAM 64 I Cardiac Echo Impressions Echocardiogram Report Interpretation Summary The ejection fraction is estimated to be 60-65%. Consider DEEPIKA if clinically indicated There is no significant valvular heart disease. Electronically signed by: Feliberto Robbins on Reading Physician:05/25/2016 01:39 PM Assessment & Plan Impression #1 end-stage renal disease dialysis dependent #2 bacteremia secondary to Enterobacter cloacae I which is sensitive to cefepime. Recommendations #1 I would like to continue on the cefepime and she is scheduled to have a tunnel dialysis catheter placed Monday morning. I would prefer that this be put in the left eye K in the right due to the VTE Prophylaxis: Sub-Q Heparin (Unfractionated) Resuscitation Status: CPR: Attempt Resuscitation Valeriano Argueta DO May 28, 2016 10:59
--- NOTE | 2016-05-28 13:39 | NUR ---
Social Work- Readiness for Discharge Data: EMR reviewed. Pt is on day 4 of hospitalization for bacteremia per H&P. Pt is not medically stable for discharge, anticipate 1-2 more days. Per MD in rounds, pt to receive hemodialysis catheter on Monday. Per RN notes, pt is on bedrest. Pt receives dialysis Monday, , and Monday at [facility]. Pt to discharge home with family to transport, no anticipated discharge needs. SW will continue to follow. Assessment: [place] base. Plan: Pt is not medically stable for discharge, anticipate 1-2 more days. Per MD in rounds, pt to receive hemodialysis catheter on Monday. Pt to discharge home with family to transport, no anticipated discharge needs. SW will continue to follow. IZA Hernandez
--- NOTE | 2016-05-28 15:00 | NUR ---
IBIS signed. Magali Lopez [employer]
[2016-05-28] MEDS ORDERED: 0.9% Sodium Chloride 250 ML ONE (17:44)
--- NOTE | 2016-05-28 17:47 | PCM.PNMED ---
Subjective Date of Service May 28, 2016 Subjective She is seen today in follow-up of her end-stage renal disease/catheter infection. She is asleep when I enter the room and does not stir much when I speak to her other than to follow exam commands. Exam Vital Signs Vital Sign - Last Date Time Temp Pulse Resp B/P Pulse Ox O2 Delivery O2 Flow Rate FiO2 05/28/16 09:04 75 05/28/16 05:58 36.7 18 83/52 100 Room Air 05/27/16 13:27 3.00 Intake and Output 05/27/16 05/27/16 05/28/16 Cumulative From/Thru 15:00 23:00 07:00 05/24/16 16:29 - 05/27/16 23:29 Intake Total 0 ml 3625 ml Output Total 2800 ml 3150 ml Balance -2800 ml 475 ml Intake Oral 0 ml 1638 ml IV Total 1987 ml Output Urine Total 0 ml 350 ml Ultrafiltrate 2800 ml 2800 ml # Voids 2 # Bowel Movements 1 Exam General: Patient is in no distress HEENT: Head is atraumatic and normocephalic. Chest: Is clear to auscultation and percussion. There are no rales, rhonchi, wheezes or rubs. Heart: Rate, rhythm is regular. There is no new murmur, rub or gallop. Abdomen: Good bowel sounds are present. Abdomen is significant for an absent umbilicus as it was surgically removed removed. The abdomen is obese still and soft, nontender, with organomegaly or masses appreciated. Extremities: Are symmetrical and well perfused. There is no edema, there is no cellulitis, no rash. Neurologic: There are no focal neurological deficits. Psychiatric: Patients mood is calm and shows no sign of agitation. IVs and Medications Medications Reviewed: Medications were reviewed in detail Lab and Diagnostics Result Diagram: 05/28/1651405/28/16514 Microbiology RUN DATE: 05/26/16 [facility] LAB LIVE PAGE 1 RUN TIME: 0744 Specimen Inquiry PHYSICIAN Name: SNOW ROMERO Age/Sex: 40/F Attend Dr: Fabricio Gee MD Acct: [id number] Unit: [id number] Status: CHLOÉ ER Location: SED Re05/23/16 Disch: Specimen: [id number] Collected: 05/23/16 Status: LUCY Req#: [id number] Received: 05/23/16 Source: BLOOD Sp Desc : HASEEB Cox Dr: Katja Spear Ordered: FLORECITA Comments: Collected by Nurse/Unit? Y/N N Comment: nicki b Procedure Result Verified Site Microbiology CRUZ CULTURE BLOOD Final 05/26/16-651 Organism 1 ENTEROBACTER CLOACAE COMPLEX GRAM STAIN RESULT GRAM VARIABLE RODS BC BOTTLE Isolated from Anaerobic Bottle of Set Drawn DATE CALLED: 05/24/16 TIME CALLED: 919 CALLED BY: SHELLEY FLOOR/DOCTOR: KYRA Chu BC READ BACK YES TYPE OF DRAW PERIPHERAL DRAW TIME OF POSITIVITY 0911 GRAM STAIN RESULT GRAM VARIABLE RODS BC BOTTLE2 Isolated from Aerobic Bottle of Set Drawn DATE CALLED: 05/24/16 TIME CALLED: 1230 CALLED BY: SHELLEY FLOOR/DOCTOR: JOSY Sy BC READ BACK YES TYPE OF DRAW PERIPHERAL DRAW TIME OF POSITIVITY 1218 ISOLATED FROM THREE OF FOUR BOTTLES COLLECTED 05/23 1. ENTEROBACTER CLOACAE COMPLEX M.I.C Interp --------- ------ * AMIKACIN <=2 S * CEFAZOLIN >=64 R * CEFEPIME <=1 S * CEFOXITIN >=64 R * CEFTRIAXONE 4 R * CIPROFLOXACIN <=0.25 S * ERTAPENEM <=0.5 S * GENTAMICIN <=1 S * MEROPENEM <=0.25 S CONTINUED ON NEXT PAGE RUN DATE: 05/26/16 [facility] LIVE PAGE 2 RUN TIME: 0652 Specimen Inquiry PHYSICIAN Patient: SNOW ROMERO [id number] (Continued) Specimen: [id number] Collected: 05/23/16 Received: 05/23/16 (Continued) Procedure Result Verified Site CRUZ CULTURE BLOOD Final (continued) 05/26/16-651 1. ENTEROBACTER CLOACAE COMPLEX (continued) Ольга Interp --------- ------ * TOBRAMYCIN <=1 S * TRIMETHOPRIM/SULFAMETHOXAZOLE <=20 S * PIPERACILLIN/TAZOBACTAM 64 I Cardiac Echo Impressions Echocardiogram Report Interpretation Summary The ejection fraction is estimated to be 60-65%. Consider DEEPIKA if clinically indicated There is no significant valvular heart disease. Electronically signed by: Feliberto Robbins on Reading Physician:05/25/2016 01:39 PM Assessment & Plan Snow Romero is a 40 year old female with past medical history significant for ESRD thought to be due to ureteral reflux in childhood currently on hemodialysis who presents for direct admission after it was discovered she have Blood cultures growing Gram negative variable rods 1. Gram negative Septicemia. With Enterobacter cloaca Present on admission. Under therapy Source of infection is unclear but high suspicion for line infection - We will continue Cefepime IV for empiric antibiotics 2. End-stage renal disease on hemodialysis Thought to be secondary to ureteral reflux in childhood. Patient on peritoneal dialysis since 2012. Recently switched to hemodialysis because of panniculectomy on 04/15/16. Right IJ tunneled catheter was removed and catheter tip was cultured(set up today). - Hemodialysis normally scheduled for Monday, , Monday. - Dr. Argueta has made arrangements for the patient to have a tunneled hemodialysis catheter placed on Monday. Patient will receive IV antibiotic over the weekend with no foreign body in place. 3. Chronic Anemia - The patient recently had EGD and colonoscopy which showed Small internal hemorrhoids - There is no evidence of active bleeding with no melena or hematochezia - The patient's anemia is ikely related to renal disease and Epo as per Nephrology 4. Morbid Obesity - Status post gastric bypass surgery - Status post panniculectomy last month on 04/15/2016. - We will need to monitor incision for any sign of infection. - Acetaminophen as needed for mild pain/fever/headache - Bowel regimen as needed - Antiemetic as needed Disposition; The patient will then have a tunneled hemodialysis catheter placed on Monday. Patient will likely go home after that if stable. VTE Prophylaxis: Sub-Q Heparin (Unfractionated) Resuscitation Status: CPR: Attempt Resuscitation Alycia Oates MD May 28, 2016 10:39
[2016-05-28] MEDS: Cefepime 1,000 MG in Dextrose 5% Minibag Plus 50 ML IV SCH (17:51)
--- NOTE | 2016-05-28 19:11 | NUR ---
TunnelCath Sites Pt Left groin cath site dressing CDI with gauze and tegaderm - no swelling/bruising noted. Right side cath site pt c/o pain with mobility, no dressing, bruising noted, no swelling. Pt A&OX3 and able to make requests known. No acute issues this shift.
[2016-05-29] VITALS (8 sets, daily range): BP systolic 81–107; BP diastolic 50–65; PULSE 61–89; RESP 16–20; O2SAT 93–99
--- NOTE | 2016-05-29 05:25 | NUR ---
Hypotension Pt with hypotension this shift- 102/60, 81/51 Declined mididrone, Pt asymptomatic Stated she has this ongoing problem and not always on dialysis days
[2016-05-29 05:38] LABS: Mean Corpuscular Hemoglobin 28.9 pg (27.0-35.0); Mean Corpuscular Volume 94.7 fL (81-100); Platelet Count 242 bil/L (150-400)
[2016-05-29 06:06] LABS: Magnesium 2.3 mg/dL (1.6-2.6); Phosphorus 3.7 mg/dL (2.5-4.9)
[2016-05-29 06:18] LABS: NEUTROPHILS % (AUTO) 49 % (40-74)
[2016-05-29 06:19] LABS: BASOPHILS % (AUTO) 0 % (0-3); EOSINOPHILS % (AUTO) 6 % (0-5); MONOCYTES % (AUTO) 6 % (4-12)
[2016-05-29] MEDS: Vancomycin Dose per Pharmacist XX SCH (08:30)
[2016-05-29 09:28] LABS: INR 0.95 ratio
--- NOTE | 2016-05-29 10:54 | PCM.PNMED ---
Subjective Date of Service May 29, 2016 Subjective Patient continues to do well. She is scheduled to have a tunneled catheter placed tomorrow and following this she may be discharged. She offers no new complaints and denies any chest pain, cough, wheezing, nausea or vomiting. Exam Vital Signs Vital Sign - Last Date Time Temp Pulse Resp B/P Pulse Ox O2 Delivery O2 Flow Rate FiO2 05/29/16 09:48 61 05/29/16 07:17 37.0 18 84/50 94 Room Air 05/27/16 13:27 3.00 Intake and Output 05/28/16 05/28/16 05/29/16 Cumulative From/Thru 15:00 23:00 07:00 05/24/16 16:29 - 05/28/16 18:43 Intake Total 600 ml 1280 ml 5505 ml Output Total 250 ml 3400 ml Balance 350 ml 1280 ml 2105 ml Intake Oral 600 ml 1280 ml 3518 ml IV Total 1987 ml Output Urine Total 250 ml 600 ml Ultrafiltrate 2800 ml # Voids 1 3 # Bowel Movements 1 Exam Neck is supple without adenopathy thyromegaly or turning or venous distention. Lungs are clear to auscultation. Heart is regular and rhythmical with a soft systolic murmur. Abdomen is soft without any tenderness or rebound guarding masses or hepatosplenomegaly. Lab and Diagnostics Result Diagram: 05/29/1652005/29/16520 Microbiology RUN DATE: 05/26/16 [facility] LAB LIVE PAGE 1 RUN TIME: 651 Specimen Inquiry PHYSICIAN Name: ARLENE ROMERO Lolita Age/Sex: 40/F Attend Dr: Fabricio Gee MD Acct: [id number] Unit: [id number] Status: [facility] Location: SED Re05/23/16 Disch: Specimen: [id number] Collected: 05/23/16 Status: LUCY Revane#: [id number] Received: 05/23/16 Source: BLOOD Sp Desc : HASEEB Cox Dr: Katja Spear Ordered: Comments: Collected by Nurse/Unit? Y/N N Comment: b Procedure Result Verified Site Microbiology CRUZ CULTURE BLOOD Final 05/26/16-0652 Organism 1 ENTEROBACTER CLOACAE COMPLEX GRAM STAIN RESULT GRAM VARIABLE RODS BC BOTTLE Isolated from Anaerobic Bottle of Set Drawn DATE CALLED: 05/24/16 TIME CALLED: 0920 CALLED BY: SHELLEY FLOOR/DOCTOR: LEIA/CHAITANYA Chu BC READ BACK YES TYPE OF DRAW PERIPHERAL DRAW TIME OF POSITIVITY 0911 GRAM STAIN RESULT GRAM VARIABLE RODS BC BOTTLE2 Isolated from Aerobic Bottle of Set Drawn DATE CALLED: 05/24/16 TIME CALLED: 1230 CALLED BY: SHELLEY FLOOR/DOCTOR: LEIA/CYNDIE Sy BC READ BACK YES TYPE OF DRAW PERIPHERAL DRAW TIME OF POSITIVITY 1218 ISOLATED FROM THREE OF FOUR BOTTLES COLLECTED 05/23 1. ENTEROBACTER CLOACAE COMPLEX NoahI.C Interp --------- ------ * AMIKACIN <=2 S * CEFAZOLIN >=64 R * CEFEPIME <=1 S * CEFOXITIN >=64 R * CEFTRIAXONE 4 R * CIPROFLOXACIN <=0.25 S * ERTAPENEM <=0.5 S * GENTAMICIN <=1 S * MEROPENEM <=0.25 S CONTINUED ON NEXT PAGE RUN DATE: 05/26/16 [facility] LIVE PAGE 2 RUN TIME: 651 Specimen Inquiry PHYSICIAN Patient: ARLENE ROMERO [id number] (Continued) Specimen: [id number] Collected: 05/23/16 Received: 05/23/16 (Continued) Procedure Result Verified Site CRUZ CULTURE BLOOD Final (continued) 05/26/16-651 1. ENTEROBACTER CLOACAE COMPLEX (continued) M.I.C Interp --------- ------ * TOBRAMYCIN <=1 S * TRIMETHOPRIM/SULFAMETHOXAZOLE <=20 S * PIPERACILLIN/TAZOBACTAM 64 I Cardiac Echo Impressions Echocardiogram Report Interpretation Summary The ejection fraction is estimated to be 60-65%. Consider DEEPIKA if clinically indicated There is no significant valvular heart disease. Electronically signed by: Feliberto Robbins on Reading Physician:05/25/2016 01:39 PM Assessment & Plan Impression #1 bacteremia due to Enterobacter cloacae I with negative subsequent cultures and sensitivity to cefepime. #2 end-stage renal disease Recommendations #1 Patient nothing by mouth after midnight so to have appeared to get her dialysis catheter tomorrow. Following this recommendation is for her dialysis and subsequent discharge. VTE Prophylaxis: Sub-Q Heparin (Unfractionated) VTE Mechanical Devices: Intermittant Pneumatic CD Resuscitation Status: CPR: Attempt Resuscitation Valeriano Argueta DO May 29, 2016 10:54
[2016-05-29] MEDS: Heparin 5,000 Unit/mL Inj SUBQ SCH ×2 (11:05→22:02)
[2016-05-29] MEDS: Ergocalciferol (Vit D2) 50,000 Unit Capsule PO SCH (11:05)
--- NOTE | 2016-05-29 15:20 | PCM.PNMED ---
Subjective Date of Service May 29, 2016 Subjective She is seen today in follow-up for end-stage renal disease and Enterobacter line infection bacteremia She continues to be sleeping most of the time, with minimal interaction. Her blood pressures have been low at 84/50 but well tolerated at apparently her baseline. Exam Vital Signs Vital Sign - Last Date Time Temp Pulse Resp B/P Pulse Ox O2 Delivery O2 Flow Rate FiO2 05/29/16 07:17 37.0 64 18 84/50 94 Room Air 05/27/16 13:27 3.00 Intake and Output 05/28/16 05/28/16 05/29/16 Cumulative From/Thru 15:00 23:00 07:00 05/24/16 16:29 - 05/28/16 18:43 Intake Total 600 ml 1280 ml 5505 ml Output Total 250 ml 3400 ml Balance 350 ml 1280 ml 2105 ml Intake Oral 600 ml 1280 ml 3518 ml IV Total 1987 ml Output Urine Total 250 ml 600 ml Ultrafiltrate 2800 ml # Voids 1 3 # Bowel Movements 1 Exam General: Patient is in no distress HEENT: Head is atraumatic and normocephalic. Chest: Is clear to auscultation and percussion. There are no rales, rhonchi, wheezes or rubs. Heart: Rate, rhythm is regular. There is no new murmur, rub or gallop. Extremities: Are symmetrical and well perfused. There is no edema, there is no cellulitis, no rash. Neurologic: There are no focal neurological deficits. Psychiatric: Patients mood is calm and shows no sign of agitation. IVs and Medications Medications Reviewed: Medications were reviewed in detail Lab and Diagnostics Result Diagram: 05/29/1652005/29/16520 Microbiology RUN DATE: 05/26/16 [facility] LAB LIVE PAGE 1 RUN TIME: 651 Specimen Inquiry PHYSICIAN Name: HEATHER,SNOW M Age/Sex: 40/F Attend Dr: Fabricio Gee MD Acct: [id number] Unit: [id number] Status: DEP ER Location: SED Re05/23/16 Disch: Specimen: [id number] Collected: 05/23/16 Status: LUCY Req#: [id number] Received: 05/23/16 Source: BLOOD Sp Desc : AA Brooke Dr: Katja Spear Ordered: Comments: Collected by Nurse/Unit? Y/N N Comment: b Procedure Result Verified Site Microbiology CRUZ CULTURE BLOOD Final 05/26/16-0652 Organism 1 ENTEROBACTER CLOACAE COMPLEX GRAM STAIN RESULT GRAM VARIABLE RODS BC BOTTLE Isolated from Anaerobic Bottle of Set Drawn DATE CALLED: 05/24/16 TIME CALLED: 0920 CALLED BY: SHELLEY FLOOR/DOCTOR: LEIA/CHAITANYA BERNABE READ BACK YES TYPE OF DRAW PERIPHERAL DRAW TIME OF POSITIVITY 0911 GRAM STAIN RESULT GRAM VARIABLE RODS BC BOTTLE2 Isolated from Aerobic Bottle of Set Drawn DATE CALLED: 05/24/16 TIME CALLED: 1230 CALLED BY: SHELLEY FLOOR/DOCTOR: LEIA/CYNDIE Sy BC READ BACK YES TYPE OF DRAW PERIPHERAL DRAW TIME OF POSITIVITY 1218 ISOLATED FROM THREE OF FOUR BOTTLES COLLECTED 05/23 1. ENTEROBACTER CLOACAE COMPLEX M.I.C Interp --------- ------ * AMIKACIN <=2 S * CEFAZOLIN >=64 R * CEFEPIME <=1 S * CEFOXITIN >=64 R * CEFTRIAXONE 4 R * CIPROFLOXACIN <=0.25 S * ERTAPENEM <=0.5 S * GENTAMICIN <=1 S * MEROPENEM <=0.25 S CONTINUED ON NEXT PAGE RUN DATE: 05/26/16 [facility] LIVE PAGE 2 RUN TIME: 0652 Specimen Inquiry PHYSICIAN Patient: SNOW ROMERO [id number] (Continued) Specimen: [id number] Collected: 05/23/16 Received: 05/23/16 (Continued) Procedure Result Verified Site CRUZ CULTURE BLOOD Final (continued) 05/26/16-651 1. ENTEROBACTER CLOACAE COMPLEX (continued) M.I.C Interp --------- ------ * TOBRAMYCIN <=1 S * TRIMETHOPRIM/SULFAMETHOXAZOLE <=20 S * PIPERACILLIN/TAZOBACTAM 64 I Cardiac Echo Impressions Echocardiogram Report Interpretation Summary The ejection fraction is estimated to be 60-65%. Consider DEEPIKA if clinically indicated There is no significant valvular heart disease. Electronically signed by: Feliberto Robbnis on Reading Physician:05/25/2016 01:39 PM Assessment & Plan Snow Romero is a 40 year old female with past medical history significant for ESRD thought to be due to ureteral reflux in childhood currently on hemodialysis who presents for direct admission after it was discovered she have Blood cultures growing Gram negative variable rods 1. Enterobacter cloaca Bacteremia and Catheter tip infection, Present on admission. Under therapy - We will continue Cefepime IV and stop Vancomycin today. 2. End-stage renal disease on hemodialysis Thought to be secondary to ureteral reflux in childhood. Patient on peritoneal dialysis since 2012. Recently switched to hemodialysis because of panniculectomy on 04/15/16. Right IJ tunneled catheter was removed and catheter tip was cultured positive for Enterobacter. - Hemodialysis normally scheduled for Monday, , Monday. - Dr. Argueta has made arrangements for the patient to have a tunneled hemodialysis catheter placed on Monday. Patient will receive IV antibiotic over the weekend with no foreign body in place. 3. Chronic Anemia - The patient recently had EGD and colonoscopy which showed Small internal hemorrhoids - There is no evidence of active bleeding with no melena or hematochezia - The patient's anemia is ikely related to renal disease and Epo as per Nephrology 4. Morbid Obesity - Status post gastric bypass surgery - Status post panniculectomy last month on 04/15/2016. - We will need to monitor incision for any sign of infection. - Acetaminophen as needed for mild pain/fever/headache - Bowel regimen as needed - Antiemetic as needed Disposition; The patient will then have a tunneled hemodialysis catheter placed on Monday. Patient will likely go home after that if stable. NPO after midnight tonight. Pain Evaluation: Adequate Pain Control VTE Prophylaxis: Sub-Q Heparin (Unfractionated) VTE Mechanical Devices: Intermittant Pneumatic CD Resuscitation Status: CPR: Attempt Resuscitation Alycia Oates MD May 29, 2016 07:36
--- NOTE | 2016-05-29 17:31 | NUR ---
pain Pt c/o off and on pain but tolerating. No requests for pain medications. A&Ox3, HANNA, VSS - remains hypotensive asymptomatic (received dose Florinef), is aware of plan for tomorrow. No acute issues this shift. Care continues.
[2016-05-29] MEDS: Cefepime 1,000 MG in Dextrose 5% Minibag Plus 50 ML IV SCH (18:03)
[2016-05-30 00:41] VITALS: BP 102/71; PULSE 98; RESP 16; O2SAT 98
--- NOTE | 2016-05-30 03:46 | NUR ---
Hypotension/NPO Pt BP stable this shift, BP has come up to low 100's systolic, asymptomatic. Pt is NPO after midnight and compliant. She states she is "ready for her surgery and to go home" 0 c/o pain this shift
[2016-05-30] MEDS ORDERED: Vancomycin Serum Trough XX ONE (05:00)
--- NOTE | 2016-05-30 05:53 | PCM.DC.MED ---
Discharge Summary Date of Service May 30, 2016 Dates of Hospitalization Date of Hospital Admission May 24, 2016 at 16:55 Providers: Admitting Physician: Justin Blevins MD Primary Care Physician: Cedrick Hines MD Attending Physician: Justin Blevins MD Procedures Cardiac Echo Impression Echocardiogram Report Interpretation Summary The ejection fraction is estimated to be 60-65%. Consider DEEPIKA if clinically indicated There is no significant valvular heart disease. Electronically signed by: Feliberto Robbins on Reading Physician:05/25/2016 01:39 PM Brief History Snow Romero is a 40 year old female with past medical history significant for ESRD thought to be due to ureteral reflux in childhood currently on hemodialysis who presents for direct admission after it was discover she have Blood cultures growing Gram negative variable rods Patient was evaluated at the Emergency department yesterday 05/23/16 due to complaints of head ache which resolved. She also reported having chills and sweating episodes. She was discharged but blood cultures were obtained. She denies any diarrhea, no coughing, no stiff neck. Today she was at her dialysis as scheduled and continued to have these symptoms. Dr Puente contacted me after discovering the blood cultures results and requested direct admission for antibiotics. Hospital Course Snow Romero is a 40 year old female with past medical history significant for ESRD thought to be due to ureteral reflux in childhood currently on hemodialysis who presents for direct admission after it was discovered she have Blood cultures growing Gram negative variable rods 1. Enterobacter cloaca Bacteremia and Catheter tip infection, Present on admission. Under therapy - We will continue Cefepime IV and stop Vancomycin today. 2. End-stage renal disease on hemodialysis Thought to be secondary to ureteral reflux in childhood. Patient on peritoneal dialysis since 2012. Recently switched to hemodialysis because of panniculectomy on 04/15/16. Right IJ tunneled catheter was removed and catheter tip was cultured positive for Enterobacter. - Hemodialysis normally scheduled for Monday, , Monday. - Dr. Argueta has made arrangements for the patient to have a tunneled hemodialysis catheter placed on Monday. Patient will receive IV antibiotic over the weekend with no foreign body in place. 3. Chronic Anemia - The patient recently had EGD and colonoscopy which showed Small internal hemorrhoids - There is no evidence of active bleeding with no melena or hematochezia - The patient's anemia is ikely related to renal disease and Epo as per Nephrology 4. Morbid Obesity - Status post gastric bypass surgery - Status post panniculectomy last month on 04/15/2016. - We will need to monitor incision for any sign of infection. - Acetaminophen as needed for mild pain/fever/headache - Bowel regimen as needed - Antiemetic as needed Disposition; The patient will then have a tunneled hemodialysis catheter placed on Monday. Patient will likely go home after that if stable. NPO after midnight tonight. Exam Vital Signs (Last) Date Time Temp Pulse Resp B/P Pulse Ox O2 Delivery O2 Flow Rate FiO2 05/30/16 00:41 36.1 98 16 102/71 98 Room Air 05/27/16 13:27 3.00 Test 05/24/16 18:42 05/24/16 23:30 05/25/16 00:00 05/25/16 03:00 Hold Phillips Top Tube Received (Received) Hold Urine Received (Received) Urine Color Straw (YELLOW) Urine Appearance Cloudy (CLEAR,HAZY) Urine pH 6.0 (5.0-8.0) Urine Specific [place] 1.010 (1.003-1.035) Urine Protein 100mg/dL (NEG,TRACE) Urine Glucose (UA) 100mg/dL (NEGATIVE) Urine Ketones Negativemg/dL (NEGATIVE) Urine Occult Blood Small (NEGATIVE) Urine Nitrite Negative (NEGATIVE) Urine Bilirubin Negative (NEGATIVE) Urine Urobilinogen Normalmg/dL (NORMAL) Urine Leukocyte Esterase Moderate (NEGATIVE) Urine RBC 0-2/hpf (0-2) Urine WBC 6-10/hpf (0-5) Urine Epithelial Cells Many/hpf (NONE-MOD) Urine Crystals None seen (NONE SEEN) Urine Bacteria Many/hpf (NONE-FEW) Urine Hyaline Casts Occasional/lpf (NONE) Urine Granular Casts Occasional (NONE SEEN) Urine Waxy Casts None seen (NONE SEEN) Urine Red Blood Cell Casts None seen (NONE SEEN) Urine White Blood Cell Casts None seen (NONE SEEN) Urine Mucus None seen (None Seen) Urine Trichomonas None seen (NONE SEEN) Urine Yeast None (NONE SEEN) Urinalysis Comment None Urine Culture Reflexed Indicated Procalcitonin 2.29ng/mL (0.00-0.08) Test 05/26/16 05:30 05/29/16 05:21 3/5/17 08:52 Random Vancomycin Level 22.0ug/mL Rx White Blood Count 7.6th/mm3 (3.8-10.1) Red Blood Count 3.18mil/mm3 (3.90-5.20) Hemoglobin 9.2g/dL (12.0-15.6) Hematocrit 30.1% (35.0-46.0) Mean Corpuscular Volume 94.7fL (81-100) Mean Corpuscular Hemoglobin 28.9pg (27.0-35.0) Mean Corpuscular Hemoglobin Concent 30.6% (32.0-37.0) Red Cell Distribution Width 15.6% (12.3-15.4) Platelet Count 242bil/L (150-400) Neutrophils (%) (Auto) 49% (40-74) Lymphocytes (%) (Auto) 35% (14-46) Monocytes (%) (Auto) 6% (4-12) Eosinophils (%) (Auto) 6% (0-5) Basophils (%) (Auto) 0% (0-3) Band Neutrophils % 0% (1-5) Metamyelocytes % 5% (0-0) Sodium Level 139mEq/L (134-144) Potassium Level 5.1mEq/L (3.5-5.2) Chloride Level 97mEq/L (97-108) Carbon Dioxide Level 25mmol/L (18-29) Blood Urea Nitrogen 68mg/dL (6-20) Creatinine 7.61mg/dL (0.57-1.00) Estimat Glomerular Filtration Rate 9mL/min (>59) Glucose Level 90mg/dL (60-99) Calcium Level 7.5mg/dL (8.5-10.1) Phosphorus Level 3.7mg/dL (2.5-4.9) Magnesium Level 2.3mg/dL (1.6-2.6) Total Bilirubin 0.3mg/dL (0.0-1.2) Aspartate Amino Transf (AST/SGOT) 27U/L (0-50) Alanine Aminotransferase (ALT/SGPT) 20U/L (0-32) Alkaline Phosphatase 69U/L (25-150) Total Protein 6.2g/dL (6.4-8.4) Albumin 3.6g/dL (3.4-5.0) Prothrombin Time 10.2sec (8.1-12.5) Prothromb Time International Ratio 0.95ratio Activated Partial Thromboplast Time 28.2sec (22.8-33.0) Microbiology Results RUN DATE: 05/26/16 [facility] LIVE PAGE 1 RUN TIME: 651 Specimen Inquiry PHYSICIAN Name: HEATHERSNOW Age/Sex: 40/F Attend Dr: Fabricio Gee MD Acct: [id number] Unit: [id number] Status: DEP ER Location: SED Re05/23/16 Disch: Specimen: [id number] Collected: 05/23/16 Status: COMP Req#: [id number] Received: 05/23/16 Source: BLOOD Sp Desc : HASEEB Cox Dr: Katja Spear Ordered: FLORECITA Comments: Collected by Nurse/Unit? Y/N N Comment: nicki b Procedure Result Verified Site Microbiology CRUZ CULTURE BLOOD Final 05/26/16-0652 Organism 1 ENTEROBACTER CLOACAE COMPLEX GRAM STAIN RESULT GRAM VARIABLE RODS BC BOTTLE Isolated from Anaerobic Bottle of Set Drawn DATE CALLED: 05/24/16 TIME CALLED: 0920 CALLED BY: SHELLEY FLOOR/DOCTOR: LEIA/CHAITANYA Chu BC READ BACK YES TYPE OF DRAW PERIPHERAL DRAW TIME OF POSITIVITY 0911 GRAM STAIN RESULT GRAM VARIABLE RODS BC BOTTLE2 Isolated from Aerobic Bottle of Set Drawn DATE CALLED: 05/24/16 TIME CALLED: 1230 CALLED BY: SHELLEY FLOOR/DOCTOR: LEIA/CYNDIE Sy BC READ BACK YES TYPE OF DRAW PERIPHERAL DRAW TIME OF POSITIVITY 1218 ISOLATED FROM THREE OF FOUR BOTTLES COLLECTED 05/23 1. ENTEROBACTER CLOACAE COMPLEX M.I.C Interp --------- ------ * AMIKACIN <=2 S * CEFAZOLIN >=64 R * CEFEPIME <=1 S * CEFOXITIN >=64 R * CEFTRIAXONE 4 R * CIPROFLOXACIN <=0.25 S * ERTAPENEM <=0.5 S * GENTAMICIN <=1 S * MEROPENEM <=0.25 S CONTINUED ON NEXT PAGE RUN DATE: 05/26/16 [facility] LIVE PAGE 2 RUN TIME: 651 Specimen Inquiry PHYSICIAN Patient: SNOW ROMERO [id number] (Continued) Specimen: [id number] Collected: 05/23/16 Received: 05/23/16 (Continued) Procedure Result Verified Site CRUZ CULTURE BLOOD Final (continued) 05/26/16 1. ENTEROBACTER CLOACAE COMPLEX (continued) M.I.C Interp --------- ------ * TOBRAMYCIN <=1 S * TRIMETHOPRIM/SULFAMETHOXAZOLE <=20 S * PIPERACILLIN/TAZOBACTAM 64 I Discharge Medications Discharge Medications Calcium Acetate (Calcium Acetate) 667 Mg Capsule 2,001 MG PO TID/meals and snacks (Reported) Calcium Carbonate/Mag Hydrox (Antacid Chewable Tablet) 1 Each Tab.chew 4 EACH PO HS (Reported) Cholecalciferol (Vitamin D3) (Vitamin D) 50,000 Unit Capsule 50,000 UNIT PO Thur ,Fri,Sa,Orozco (Reported) Docusate Sodium (Colace) 100 Mg Capsule 200-300 MG PO DAILY (Reported) As needed Acetaminophen (Acetaminophen) 325 Mg Capsule 325-650 MG PO Q4H PRN PRN For Pain (Reported) Fludrocortisone Acetate (Fludrocortisone Acetate) 0.1 Mg Tablet 0.2 MG PO prn PRN PRN For Hypotension (Reported) Midodrine (Midodrine) 5 Mg Tablet 2 TAB PO TID PRN PRN For Hypotension (Reported ) Tramadol (Tramadol) 50 Mg Tablet 50 MG PO q6 hours PRN PRN For Pain (Reported) 1ST LINE FOR PAIN. TAKE OXYCODONE 2ND LINE IF STILL HAVING PAIN IN 2 HRS. oxyCODONE (oxyCODONE) 5 Mg Capsule 5-10 MG PO Q4H PRN PRN For Pain (Reported) 2ND LINE FOR PAIN. TAKES IF STILL HAVING PAIN 2 HRS POST TRAMADOL. Dory Burton DO May 30, 2016 05:53
[2016-05-30 06:32] LABS: Mean Corpuscular Hemoglobin 28.7 pg (27.0-35.0); Mean Corpuscular Volume 93.2 fL (81-100); Platelet Count 202 bil/L (150-400)
[2016-05-30 06:42] LABS: Magnesium 2.5 mg/dL (1.6-2.6); Phosphorus 4.1 mg/dL (2.5-4.9)
[2016-05-30 06:46] VITALS: BP 87/57; PULSE 62; RESP 16; O2SAT 100
[2016-05-30 08:02] LABS: BASOPHILS % (AUTO) 1 % (0-3); EOSINOPHILS % (AUTO) 3 % (0-5); MONOCYTES % (AUTO) 8 % (4-12); NEUTROPHILS % (AUTO) 58 % (40-74)
[2016-05-30] MEDS: Heparin 5,000 Unit/mL Inj SUBQ SCH (08:30)
[2016-05-30 09:18] VITALS: PULSE 61
--- NOTE | 2016-05-30 09:40 | NUR ---
laborer shaft sinking Pt taken to optical laboratory mechanic. SL Left FA with good working IV. A&OX4 NPO since midnight.
[2016-05-30] MEDS ORDERED: Heparin 1,000 Unit/mL 10 mL Inj ONE (09:46)
[2016-05-30] MEDS ORDERED: 0.9% Sodium Chloride 500 ML ONE (09:46)
[2016-05-30] MEDS ORDERED: Heparin 10,000 Unit/1,000 mL NS Premix IV ONE (09:46)
[2016-05-30] MEDS ORDERED: fentaNYL-PF 50 mCg/mL 2 mL Inj ONE (09:51)
[2016-05-30] MEDS ORDERED: HepLOK Flush 100 unit/mL 5 mL Inj ONE (10:21)
[2016-05-30 10:54] VITALS: BP 101/66; PULSE 73
--- NOTE | 2016-05-30 11:08 | NUR ---
pt is off unit to lab nurse and dialysis Addendum: 05/30/16 at 1109 by RHODA CHAN CNA Amended: Links added.
--- NOTE | 2016-05-30 11:17 | NUR ---
Inpatient dialysis Received patient from laborer pipeline staff. Patient denies pain. Telemetry replaced. certified hyperbaric technologist notified of room change. Awaiting report from Elizabet Leo. Addendum: 05/30/16 at 1234 by ALLIE ELIZABETH RN Report received from Mitzy Loja RN
--- NOTE | 2016-05-30 12:25 | PCM.PNMED ---
Subjective Date of Service May 30, 2016 Subjective Patient is being nothing by mouth. She will have a tunneled cath the placement today. She also for no new complaints today. She will like to switch a invoice control clerk to Dr. Valeriano Argueta. I have talked to geriatric social work professor at [facility] in this regard. She will make the arrangement as per request. Exam Vital Signs Vital Sign - Last Date Time Temp Pulse Resp B/P Pulse Ox O2 Delivery O2 Flow Rate FiO2 05/30/16 09:18 61 05/30/16 06:46 36.5 16 87/57 100 Room Air 05/27/16 13:27 3.00 Intake and Output 05/29/16 05/29/16 05/30/16 Cumulative From/Thru 15:00 23:00 07:00 05/24/16 16:29 - 05/30/16 06:46 Intake Total 1200 ml 400 ml 860 ml 7965 ml Output Total 250 ml 200 ml 0 ml 3850 ml Balance 950 ml 200 ml 860 ml 4115 ml Intake Oral 1200 ml 400 ml 800 ml 5918 ml IV Total 60 ml 2047 ml Output Urine Total 250 ml 200 ml 0 ml 1050 ml Ultrafiltrate 2800 ml # Voids 1 4 # Bowel Movements 0 0 0 1 Exam GENERAL: The patient in no apparent distress, and alert and oriented x3. VITAL SIGNS: as documented HEENT: Head is normocephalic and atraumatic. Extraocular muscles are intact. Pupils are equal, round, and reactive to light and accommodation. Nares appeared normal. Mouth is well hydrated and without lesions. Mucous membranes are moist. Posterior pharynx clear of any exudate or lesions. NECK: Supple, no elevation of JVD, No carotid bruits. No lymphadenopathy or thyromegaly. LUNGS: Clear to auscultation, equal breath sounds bilaterally, no wheezing, no rhonchi no rales. HEART: Normal S1/S2, Regular rate and rhythm, no murmurs, rubs or gallops. 2+ pules throughout. ABDOMEN: Soft, nontender, and nondistended. Positive bowel sounds. No hepatosplenomegaly was noted. Abdominal scar on the lower abdomen is dry clean and intact. EXTREMITIES: Without any cyanosis, clubbing, rash, lesions or edema. NEUROLOGIC: The patient is oriented to person, place and time. Strength and sensation are grossly intact. SKIN: No ulceration or induration present. Lab and Diagnostics Result Diagram: 05/30/1653105/30/16531 Microbiology RUN DATE: 05/26/16 [facility] LAB LIVE PAGE 1 RUN TIME: 651 Specimen Inquiry PHYSICIAN Name: ARLENE ROMERO Age/Sex: 40/F Attend Dr: Fabricio Gee MD Acct: [id number] Unit: [id number] Status: DEP ER Location: SED Re05/23/16 Disch: Specimen: [id number] Collected: 05/23/16 Status: COMP Req#: [id number] Received: 05/23/16 Source: BLOOD Sp Desc : HASEEB Cox Dr: Katja Spear Ordered: FLORECITA Comments: Collected by Nurse/Unit? Y/N N Comment: nicki b Procedure Result Verified Site Microbiology CRUZ CULTURE BLOOD Final 05/26/16-0652 Organism 1 ENTEROBACTER CLOACAE COMPLEX GRAM STAIN RESULT GRAM VARIABLE RODS BC BOTTLE Isolated from Anaerobic Bottle of Set Drawn DATE CALLED: 05/24/16 TIME CALLED: 0920 CALLED BY: SHELLEY FLOOR/DOCTOR: LEIA/CHAITANYA Chu BC READ BACK YES TYPE OF DRAW PERIPHERAL DRAW TIME OF POSITIVITY 0911 GRAM STAIN RESULT GRAM VARIABLE RODS BC BOTTLE2 Isolated from Aerobic Bottle of Set Drawn DATE CALLED: 05/24/16 TIME CALLED: 1230 CALLED BY: SHELLEY FLOOR/DOCTOR: LEIA/CYNDIE Sy BC READ BACK YES TYPE OF DRAW PERIPHERAL DRAW TIME OF POSITIVITY 1218 ISOLATED FROM THREE OF FOUR BOTTLES COLLECTED 05/23 1. ENTEROBACTER CLOACAE COMPLEX M.IEmily Interp --------- ------ * AMIKACIN <=2 S * CEFAZOLIN >=64 R * CEFEPIME <=1 S * CEFOXITIN >=64 R * CEFTRIAXONE 4 R * CIPROFLOXACIN <=0.25 S * ERTAPENEM <=0.5 S * GENTAMICIN <=1 S * MEROPENEM <=0.25 S CONTINUED ON NEXT PAGE RUN DATE: 05/26/16 [facility] LIVE PAGE 2 RUN TIME: 651 Specimen Inquiry PHYSICIAN Patient: ARLENE ROMERO [id number] (Continued) Specimen: [id number] Collected: 05/23/16 Received: 05/23/16 (Continued) Procedure Result Verified Site CRUZ CULTURE BLOOD Final (continued) 05/26/16 1. ENTEROBACTER CLOACAE COMPLEX (continued) Ольга Beltran --------- ------ * TOBRAMYCIN <=1 S * TRIMETHOPRIM/SULFAMETHOXAZOLE <=20 S * PIPERACILLIN/TAZOBACTAM 64 I Cardiac Echo Impressions Echocardiogram Report Interpretation Summary The ejection fraction is estimated to be 60-65%. Consider DEEPIKA if clinically indicated There is no significant valvular heart disease. Electronically signed by: Feliberto Robbins on Reading Physician:05/25/2016 01:39 PM Assessment & Plan 1. Enterobacter cloaca Bacteremia secondary to catheter infection - Status post catheter removal and IV antibiotics. 2. End-stage renal disease on hemodialysis - Continue her dialysis schedule every Monday. - Eventually she will like to have peritoneal dialysis again. - I will make a referral to Dr. Romero for PD catheter placement evaluation. - I have contacted the geriatric social work professor at [facility] since patient would like to switch in invoice control clerk to Dr. Argueta. - Dental evaluation and Pap smear are pending, otherwise patient will be listed on the transplant wait list with [facility] 3. Anemia of chronic kidney disease 4. Morbid Obesity - Status post gastric bypass surgery - Status post panniculectomy last month on 04/15/2016. Plan: -If stable after catheter placement, patient can be discharged. We will see her at the [facility]. - HD after tunneled cath placement. VTE Prophylaxis: Sub-Q Heparin (Unfractionated) VTE Mechanical Devices: Intermittant Pneumatic CD Resuscitation Status: CPR: Attempt Resuscitation Lakhwinder Toure MD May 30, 2016 12:25 Dory Burton DO Jun 01, 2016 22:48
[2016-05-30] MEDS: Cefepime 1,000 MG in Dextrose 5% Minibag Plus 50 ML IV SCH (14:04)
--- NOTE | 2016-05-30 14:34 | NUR ---
Dialysis note: 3 hr tx, Net UF 1.5. New left tunneled cath, dwell removed, flushed and hooked up to dialysis with reversed limbs; A-V, V-A. pt was hypotensive, 84/59 HR 74 through most of tx, but was not symptomatic. Midodrine given. Dresg CDI and was not removed due to recent cath placement. Blood returned and Cefepime given post tx. Limbs secured and pt returned to floor stable. Please see DTR for complete record of VS. Addendum: 05/30/16 at 1448 by NARCISA CRANE RN Final VS 108/71 HR 65. Report given to primary RN
--- NOTE | 2016-05-30 15:20 | NUR ---
Dialysis Pt went to dialysis from kiln labourer after receiving a Right upper tunnel cath. Pt back to floor from Dialysis. See assessment. Plan to DC later this afternoon.
--- NOTE | 2016-05-30 16:31 | PCM.DIMED ---
Discharge Instructions Date of Service May 30, 2016 Dates of Hospitalization May 24, 2016 at 16:55 Discharge Diagnosis Discharge Diagnosis Gram neg enterobacter cloacae Bacteremia due to infected tunnel catheter , ESRD on dialysis, Chronic Anemia due to cheonic renal disease, Morbid obesity s/p gastric bypass Medication Instructions Please complete abx per Nephrology during the dialysis. for another week Diet Renal Diet Activity No restrictions Call your provider Fever or Chills, Shortness of breath, Bleeding, Chest pain, Vomitting, Excessive diarrhea, Weakness (unilateral) Patient Instructions Please follow up with dialysis center tomorrow for dialysis Follow-up plan Please follow up with PCP in one week Follow-up Provider: Valeriano Argueta DO Follow-up with PCP in: 1 week Dory Burton DO May 30, 2016 16:31
--- NOTE | 2016-05-30 19:21 | NUR ---
DC IV Left FA removed. Pt understands all discharge instructions. All belongings in hand. Leaves to home with . Care discontinued
--- NOTE | 2016-05-31 04:07 | PCM.DC.MED ---
Discharge Summary Date of Service May 30, 2016 Dates of Hospitalization Date of Hospital Admission May 24, 2016 at 16:55 Date of Discharge: May 30, 2016 Providers: Admitting Physician: Justin Blevins MD Primary Care Physician: Cedrick Hines MD Attending Physician: Justin Blevins MD Diagnosis at Time of Discharge Diagnosis at Time of Discharge Gram neg enterobacter cloacae Bacteremia due to infected tunnel catheter , ESRD on dialysis, Chronic Anemia due to cheonic renal disease, Morbid obesity s/p gastric bypass Consultations Nephrology Procedures Cardiac Echo Impression Echocardiogram Report Interpretation Summary The ejection fraction is estimated to be 60-65%. Consider DEEPIKA if clinically indicated There is no significant valvular heart disease. Electronically signed by: Feliberto Robbins on Reading Physician:05/25/2016 01:39 PM Invasive Procedures Patient has received Tunnel catheter for dialysis during this admission and successfully underwent dialysis on the day of discharge Brief History Snow Romero is a 40 year old female with past medical history significant for ESRD thought to be due to ureteral reflux in childhood currently on hemodialysis who presents for direct admission after it was discover she have Blood cultures growing Gram negative variable rods Patient was evaluated at the Emergency department yesterday 05/23/16 due to complaints of head ache which resolved. She also reported having chills and sweating episodes. She was discharged but blood cultures were obtained. She denies any diarrhea, no coughing, no stiff neck. Today she was at her dialysis as scheduled and continued to have these symptoms. Dr Puente contacted me after discovering the blood cultures results and requested direct admission for antibiotics. Hospital Course 1. Enterobacter cloaca Bacteremia secondary to catheter infection: Patient's previous dialysis catheter. 2 Enterobacter cloacae and this is the same organism that her blood cultures showed. Her blood cultures during this admission remained negative to this date. Patient has not received VAC and dressing until the sensitivities came back and then she was switched to cefepime. Patient will be receiving antibiotics with dialysis per nephrology. She is asked complete antibiotics for one more week - Status post catheter removal and IV antibiotics. 2. End-stage renal disease on hemodialysis: She is asked to continue her dialysis Monday 3. Anemia of chronic kidney disease: Nephrology monitor as outpatient 4. Morbid Obesity - Status post gastric bypass surgery - Status post panniculectomy last month on 04/15/2016. Exam Vital Signs (Last) Date Time Temp Pulse Resp B/P Pulse Ox O2 Delivery O2 Flow Rate FiO2 05/30/16 10:54 73 05/30/16 06:46 36.5 16 87/57 100 Room Air 05/27/16 13:27 3.00 Exam Gen.: No acute distress HEENT: Normocephalic, atraumatic Heart: Regular rate and rhythm no S3-S4 sounds Lungs CTA bilaterally no crackles or wheezes Abdomen: Nontender nondistended, normal bowel sounds Extremities: Without edema Neuro without focal deficits Psych negative for anxiety Test 05/24/16 18:42 05/24/16 23:30 05/25/16 00:00 05/25/16 03:00 Hold Phillips Top Tube Received (Received) Hold Urine Received (Received) Urine Color Straw (YELLOW) Urine Appearance Cloudy (CLEAR,HAZY) Urine pH 6.0 (5.0-8.0) Urine Specific Chazy 1.010 (1.003-1.035) Urine Protein 100mg/dL (NEG,TRACE) Urine Glucose (UA) 100mg/dL (NEGATIVE) Urine Ketones Negativemg/dL (NEGATIVE) Urine Occult Blood Small (NEGATIVE) Urine Nitrite Negative (NEGATIVE) Urine Bilirubin Negative (NEGATIVE) Urine Urobilinogen Normalmg/dL (NORMAL) Urine Leukocyte Esterase Moderate (NEGATIVE) Urine RBC 0-2/hpf (0-2) Urine WBC 6-10/hpf (0-5) Urine Epithelial Cells Many/hpf (NONE-MOD) Urine Crystals None seen (NONE SEEN) Urine Bacteria Many/hpf (NONE-FEW) Urine Hyaline Casts Occasional/lpf (NONE) Urine Granular Casts Occasional (NONE SEEN) Urine Waxy Casts None seen (NONE SEEN) Urine Red Blood Cell Casts None seen (NONE SEEN) Urine White Blood Cell Casts None seen (NONE SEEN) Urine Mucus None seen (None Seen) Urine Trichomonas None seen (NONE SEEN) Urine Yeast None (NONE SEEN) Urinalysis Comment None Urine Culture Reflexed Indicated Procalcitonin 2.29ng/mL (0.00-0.08) Test 05/26/16 05:30 05/29/16 08:52 05/30/16 05:32 Random Vancomycin Level 22.0ug/mL Rx Prothrombin Time 10.2sec (8.1-12.5) Prothromb Time International Ratio 0.95ratio Activated Partial Thromboplast Time 28.2sec (22.8-33.0) White Blood Count 6.6th/mm3 (3.8-10.1) Red Blood Count 2.93mil/mm3 (3.90-5.20) Hemoglobin 8.4g/dL (12.0-15.6) Hematocrit 27.3% (35.0-46.0) Mean Corpuscular Volume 93.2fL (81-100) Mean Corpuscular Hemoglobin 28.7pg (27.0-35.0) Mean Corpuscular Hemoglobin Concent 30.8% (32.0-37.0) Red Cell Distribution Width 15.1% (12.3-15.4) Platelet Count 202bil/L (150-400) Neutrophils (%) (Auto) 58% (40-74) Lymphocytes (%) (Auto) 22% (14-46) Monocytes (%) (Auto) 8% (4-12) Eosinophils (%) (Auto) 3% (0-5) Basophils (%) (Auto) 1% (0-3) Band Neutrophils % 4% (1-5) Metamyelocytes % 2% (0-0) Myelocytes % 2% (0-0) Sodium Level 138mEq/L (134-144) Potassium Level 5.6mEq/L (3.5-5.2) Chloride Level 96mEq/L (97-108) Carbon Dioxide Level 25mmol/L (18-29) Blood Urea Nitrogen 86mg/dL (6-20) Creatinine 9.74mg/dL (0.57-1.00) Estimat Glomerular Filtration Rate 6mL/min (>59) Glucose Level 81mg/dL (60-99) Calcium Level 7.7mg/dL (8.5-10.1) Phosphorus Level 4.1mg/dL (2.5-4.9) Magnesium Level 2.5mg/dL (1.6-2.6) Total Bilirubin 0.4mg/dL (0.0-1.2) Aspartate Amino Transf (AST/SGOT) 19U/L (0-50) Alanine Aminotransferase (ALT/SGPT) 17U/L (0-32) Alkaline Phosphatase 57U/L (25-150) Total Protein 5.8g/dL (6.4-8.4) Albumin 3.4g/dL (3.4-5.0) Vancomycin Level Trough 14.7mcg/mL Microbiology Results RUN DATE: 05/26/16 [facility] LIVE PAGE 1 RUN TIME: 651 Specimen Inquiry PHYSICIAN Name: HEATHERSNOW Lolita Age/Sex: 40/F Attend Dr: Fabricio Gee MD Acct: [id number] Unit: [id number] Status: DEP ER Location: SED Re05/23/16 Disch: Specimen: [id number] Collected: 05/23/16 Status: COMP Req#: [id number] Received: 05/23/16 Source: BLOOD Sp Desc : HASEEB Cox Dr: Katja Spear Ordered: FLORECITA Comments: Collected by Nurse/Unit? Y/N N Comment: nicki b Procedure Result Verified Site Microbiology CRUZ CULTURE BLOOD Final 05/26/16-0652 Organism 1 ENTEROBACTER CLOACAE COMPLEX GRAM STAIN RESULT GRAM VARIABLE RODS BC BOTTLE Isolated from Anaerobic Bottle of Set Drawn DATE CALLED: 05/24/16 TIME CALLED: 0920 CALLED BY: SHELLEY FLOOR/DOCTOR: LEIA/CHAITANYA Chu BC READ BACK YES TYPE OF DRAW PERIPHERAL DRAW TIME OF POSITIVITY 0911 GRAM STAIN RESULT GRAM VARIABLE RODS BC BOTTLE2 Isolated from Aerobic Bottle of Set Drawn DATE CALLED: 05/24/16 TIME CALLED: 1230 CALLED BY: SHELLEY FLOOR/DOCTOR: LEIA/CYNDIE Sy BC READ BACK YES TYPE OF DRAW PERIPHERAL DRAW TIME OF POSITIVITY 1218 ISOLATED FROM THREE OF FOUR BOTTLES COLLECTED 05/23 1. ENTEROBACTER CLOACAE COMPLEX M.I.C Interp --------- ------ * AMIKACIN <=2 S * CEFAZOLIN >=64 R * CEFEPIME <=1 S * CEFOXITIN >=64 R * CEFTRIAXONE 4 R * CIPROFLOXACIN <=0.25 S * ERTAPENEM <=0.5 S * GENTAMICIN <=1 S * MEROPENEM <=0.25 S CONTINUED ON NEXT PAGE RUN DATE: 05/26/16 [facility] LIVE PAGE 2 RUN TIME: 651 Specimen Inquiry PHYSICIAN Patient: SNOW ROMERO [id number] (Continued) Specimen: [id number] Collected: 05/23/16 Received: 05/23/16 (Continued) Procedure Result Verified Site CRUZ CULTURE BLOOD Final (continued) 05/26/16 1. ENTEROBACTER CLOACAE COMPLEX (continued) Ольга Interp --------- ------ * TOBRAMYCIN <=1 S * TRIMETHOPRIM/SULFAMETHOXAZOLE <=20 S * PIPERACILLIN/TAZOBACTAM 64 I Discharge Medications Discharge Medications Calcium Acetate (Calcium Acetate) 667 Mg Capsule 2,001 MG PO TID/meals and snacks (Reported) Calcium Carbonate/Mag Hydrox (Antacid Chewable Tablet) 1 Each Tab.chew 4 EACH PO HS (Reported) Cholecalciferol (Vitamin D3) (Vitamin D) 50,000 Unit Capsule 50,000 UNIT PO Thur ,Fri,Sa,Orozco (Reported) Docusate Sodium (Colace) 100 Mg Capsule 200-300 MG PO DAILY (Reported) As needed Acetaminophen (Acetaminophen) 325 Mg Capsule 325-650 MG PO Q4H PRN PRN For Pain (Reported) Fludrocortisone Acetate (Fludrocortisone Acetate) 0.1 Mg Tablet 0.2 MG PO prn PRN PRN For Hypotension (Reported) Midodrine (Midodrine) 5 Mg Tablet 2 TAB PO TID PRN PRN For Hypotension (Reported ) Tramadol (Tramadol) 50 Mg Tablet 50 MG PO q6 hours PRN PRN For Pain (Reported) 1ST LINE FOR PAIN. TAKE OXYCODONE 2ND LINE IF STILL HAVING PAIN IN 2 HRS. oxyCODONE (oxyCODONE) 5 Mg Capsule 5-10 MG PO Q4H PRN PRN For Pain (Reported) 2ND LINE FOR PAIN. TAKES IF STILL HAVING PAIN 2 HRS POST TRAMADOL. Additional med instructions Please complete abx per Nephrology during the dialysis. for another week Followup Plan Follow-up plan Please follow up with PCP in one week Discharge Diet: Renal Diet Discharge Activity: No restrictions Patient Instructions Please follow up with dialysis center tomorrow for dialysis Follow-up Provider: Valeriano Argueta DO Follow-up with PCP in: 1 week Dory Burton DO May 31, 2016 04:07
[2016-07-07] MEDS ORDERED: BUPR100T15 PO (11:59)
[2016-07-07] MEDS ORDERED: CHOL500050 PO (12:01)
[2016-07-07] MEDS ORDERED: CALC-984 PO (12:01)
== END 2016-05-30 19:30 | disposition home or self-care (01) | DRG 314 ==
LOC: SED 16:19 → PCC 16:55 → OSC 05-25 22:26
PROVIDERS: ADMIT Hospitalist; ATTEND Hospitalist
PROC: B246ZZ4 Ultrasonography of Right and Left Heart, Transesophageal (ICD-10-PCS; principal; 2016-05-27)
PROC: 5A1D00Z (ICD-10-PCS; 2016-05-27)
PROC: 5A1D00Z (ICD-10-PCS; 2016-05-30)
DX: T80.211A Bloodstream infection due to central venous catheter, initial encounter (principal); N18.6 End stage renal disease; A41.50 Gram-negative sepsis, unspecified; Z99.2 Dependence on renal dialysis; D63.1 Anemia in chronic kidney disease; K21.9 Gastro-esophageal reflux disease without esophagitis; Z87.891 Personal history of nicotine dependence; Z98.84 Bariatric surgery status; G89.29 Other chronic pain; I95.9 Hypotension, unspecified

== ENCOUNTER 2016-06-20 17:44 | Emergency (ER) | payer MEDICARE ==
[~2016-06-20] VITALS: Ht 157.5 cm; Wt 71.8 kg
[~2016-06-20 17:44] MED LIST changes: +ACET325C PO; -BENZ-12 PO; +CALC667C9 PO; -CEFD300C3 PO; +DOCU-41 PO; -HYDR15SO8 PO; -SENN1TAB90 PO; -SEVE800T7 PO; +TRAM50TA2 PO
[2016-06-20 18:00] VITALS: BP 107/74; PULSE 84; RESP 18; O2SAT 100
--- NOTE | 2016-06-20 19:07 | ED.REPORT ---
HPI-Dizziness / Weakness Date of Service Jun 20, 2016 ED Provider: Nisreen Sharif History of Present Illness: 40-year-old female here for acute onset of dizziness/lightheadedness and inability to multitask and get her thoughts out. States she was not thinking clearly for a brief period of time. She had drank 2 red bulls about 2:30 about 5:00 she started to feel mildly dizzy and lightheaded and like she could not finish her thoughts. In the last 2 hours her symptoms have gradually decreased. She has had this drink in the past without having the symptoms. She denies chest pain or shortness of breath, no nausea vomiting or diarrhea or altered mental status. She is a dialysis patient, she has one kidney r/t a tumor on the Left kidney. She has not missed dialysis she is due tomorrow. Denies MCKEON Nursing Notes Stated Complaint: CANT FOCUS/DIZZY Chief Complaint: Neuro Symptoms/ Deficits Nursing Notes Reviewed: Yes Allergies: Coded Allergies: gentamicin (Verified Allergy, Severe, SPECIFICIALLY LISTED FROM 08/17 CREAM...RASH, 06/20/16) Scheduled Calcium Acetate (Calcium Acetate) 667 Mg Capsule 2,001 MG PO TID/meals and snacks Calcium Carbonate/Mag Hydrox (Antacid Chewable Tablet) 1 Each Tab.chew 4 EACH PO HS Cholecalciferol (Vitamin D3) (Vitamin D) 50,000 Unit Capsule 50,000 UNIT PO Thur ,Fri,Sa,Orozco Docusate Sodium (Colace) 100 Mg Capsule 200-300 MG PO DAILY Scheduled PRN Acetaminophen (Acetaminophen) 325 Mg Capsule 325-650 MG PO Q4H PRN PRN For Pain Fludrocortisone Acetate (Fludrocortisone Acetate) 0.1 Mg Tablet 0.2 MG PO prn PRN PRN For Hypotension Midodrine (Midodrine) 5 Mg Tablet 2 TAB PO TID PRN PRN For Hypotension Tramadol (Tramadol) 50 Mg Tablet 50 MG PO q6 hours PRN PRN For Pain 1ST LINE FOR PAIN. TAKE OXYCODONE 2ND LINE IF STILL HAVING PAIN IN 2 HRS. oxyCODONE (oxyCODONE) 5 Mg Capsule 5-10 MG PO Q4H PRN PRN For Pain 2ND LINE FOR PAIN. TAKES IF STILL HAVING PAIN 2 HRS POST TRAMADOL. General Time Seen by MD: 18:47 Chief Complaint Dizzy, Speech abnormal Hx Obtained From: Patient Arrived By: Walk-in Onset Occurred: Just prior to arrival Symptom Duration: Waxes and wanes Location: : No pain Severity: Current: No pain currently Recent Healthcare: No recent doctor visit Similar Sx Previous: No Past Medical History Past Medical History Notes: PCP: Dr. Hines in [place]: Dr. Mcallister Patient underwent left nephrectomy on 04/16 for renal cell carcinoma [place] - Dr. Spear Past Medical History End-stage renal disease, thought due to ureteral reflux in childhood, on nightly peritoneal dialysis (currently as of 05/13 on hemodialysis waiting for pannulectomy site to heal to resume PD) followed by Dr. Ray. Chronic anemia due to renal failure. History of peritonitis associated with peritoneal dialysis. 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 Right internal jugular vein tunneled hemodialysis catheter placement by Dr. Parham on 04/15/15. Gastric bypass ([facility] en [facility]) for obesity, March 2014. Gastroesophageal reflux disease. Chronic constipation. Hearing loss (uses hearing aids). Reports: Renal failure Past Surgical History left nephrectomy on 04/16 for renal cell carcinoma Peritoneal dialysis catheter placement. Left upper extremity fistula. 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 section x2. Uterine ablation for bleeding. Pannulectomy Current dialysis catheter R chest (05/13) Reports: Reports: Gastric bypass, Tubal ligation Family History Mother - DM Maternal grandmother - HTN Paternal gradnmother - DM Smoking History Former Smoker Social History Lives with family, and teenage children Alcohol Use: Denies alcohol use Drug Use: Denies drug use Other Social History: Good social support, Frequent ED visitor, , Local resident Occupation Unknown Ambulatory Status Independent Review of Systems Basic Review of Systems : No dysuria Musculoskeletal: No extremity swelling, No extremity pain Allergy / Immune: No allergy Constitutional: Denies: Chills, Fatigue, Fever Eyes: Denies: Blurred bilateral, Discharge bilateral, Eye pain bilateral, Redness bilateral, Visual loss bilateral Respiratory: Denies: Dyspnea on exertion, Non-productive cough Cardiovascular: Denies: Chest pain, Dyspnea on exertion, Edema GI: Denies: Abdominal pain, Nausea, Vomiting Neurologic: Reports: Dizziness, Lightheaded, Denies: Change LOC, Headache, Problem walking, Slurred speech, Weakness Complete sys rev & neg: except as marked. Physical Exam Initial Vital Signs Vital Signs (First) Date Time Temp Pulse Resp B/P Pulse Ox O2 Delivery O2 Flow Rate FiO2 06/20/16 18:00 36.0 84 18 107/74 100 Room Air Initial VS: Reviewed, Vital signs normal ENT: Mucous membranes moist Abdomen / GI: Soft, Non-tender, No guarding, No rebound, No distention Lymphatic: No lymphadenopathy Extremities: Vascular intact, Neuro intact, No swelling, No tenderness Skin: Warm, Dry, No cyanosis Psychiatric: Mood/affect normal, Behavior normal, Normal thought content General/Constitutional: Awake, Alert, No acute distress, Well appearing, Well developed, Well hydrated Head / Eyes: Normocephalic, PERRL, No nystagmus, Conjunctiva NL Respiratory / Chest: Breath sounds NL, Breath sounds = bilat, No respiratory distress, No rales, No rhonchi, No wheezing Cardiovascular: Heart rate NL, Regular rhythm, Heart sounds NL, No murmurs, Cap refill not delayed, Peripheral circulation NL Neurologic: Oriented X3, Speech NL, No motor deficits, No sensory deficits, CN II - XII intact, Cerebellar NL, Memory NL, Gait NL Normal Neuro/physical Psychiatric: Affect NL, Mood NL, Cognitive function NL, Thought content NL Interpretation & Diagnostics Lab Results Interpretation Result Diagram: 06/20/16201306/20/16 2014 Test 06/20/16 20:14 06/20/16 20:15 White Blood Count 7.9th/mm3 (3.8-10.1) Red Blood Count 3.83mil/mm3 (3.90-5.20) Hemoglobin 11.7g/dL (12.0-15.6) Hematocrit 37.5% (35.0-46.0) Mean Corpuscular Volume 97.9fL (81-100) Mean Corpuscular Hemoglobin 30.5pg (27.0-35.0) Mean Corpuscular Hemoglobin Concent 31.2% (32.0-37.0) Red Cell Distribution Width 17.4% (12.3-15.4) Platelet Count 192bil/L (150-400) Neutrophils (%) (Auto) 68.2% (40-74) Lymphocytes (%) (Auto) 16.7% (14-46) Monocytes (%) (Auto) 8.5% (4-12) Eosinophils (%) (Auto) 4.7% (0-5) Basophils (%) (Auto) 0.5% (0-3) Sodium Level 137mEq/L (134-144) Potassium Level 5.4mEq/L (3.5-5.2) Chloride Level 95mEq/L (97-108) Carbon Dioxide Level 18mmol/L (18-29) Blood Urea Nitrogen 87mg/dL (6-20) Creatinine 9.90mg/dL (0.57-1.00) Estimat Glomerular Filtration Rate 6mL/min (>59) Glucose Level 93mg/dL (60-99) Calcium Level 9.2mg/dL (8.5-10.1) Magnesium Level 2.9mg/dL (1.6-2.6) Total Bilirubin 0.4mg/dL (0.0-1.2) Aspartate Amino Transf (AST/SGOT) 16U/L (0-50) Alanine Aminotransferase (ALT/SGPT) 16U/L (0-32) Alkaline Phosphatase 79U/L (25-150) Troponin T < 0.010ug/L (0.0-0.011) Total Protein 7.4g/dL (6.4-8.4) Albumin 4.2g/dL (3.4-5.0) Thyroid Stimulating Hormone (TSH) 0.143uIU/mL (0.450-4.500) Hold Phillips Top Tube Received (Received) Re-Eval/Medical Decision Med Decision/Clinical Course still awaiting labs, tube was sent to wrong station. still pending. 2100-patient continues to improve. Still a little lightheaded occasionally when lying in the gurney. Vastly better than when she came in here. Denies other symptoms. She is neurovascularly intact. No neurovascular deficits. Discussed options, labs coming back close to her baseline at this. Her thyroid is abnormal, she can f/u with pcp on this time. We will hold off on a head CT at this point but if her symptoms return she will return immediately to the emergency room and do a CT at that time. Patient and agree Patient Discharge & Departure Shift Change Sign-Out Laboratory Evaluation: Lab evaluation discussed Imaging Studies: Imaging discussed Response to Therapy: Improved Impression: Primary Impression: Lightheadedness Additional Impression: Chronic kidney disease, stage 5, kidney failure Disposition: Home Discharge Condition All VS Reviewed: Yes Condition: Stable Patient Instructions: Chronic Kidney Failure (ED) Additional Instructions: Follow up with your PCP in 2 days regarding this visit. Return immediately to emergency room if your dizziness or lightheadedness increases or your focal neuro issues returned, also return if he get headaches, fever or any other concerning symptoms. Your exam today was reassuring, but none the less, return if things change. Follow up with dialysis as scheduled. Eats small frequent meals and ensure hydration. Stop drinking red bull. Follow up with your doctor on your thyroid, this should be rechecked. Referrals: Cedrick Hines MD (PCP) EDSupervising Provider for APC: Lucia Rodriguez MD, Scott W MD Cooper, Linnea K ARNP Jun 20, 2016 19:07
[2016-06-20 20:20] LABS: BASOPHILS % (AUTO) 0.5 % (0-3); EOSINOPHILS % (AUTO) 4.7 % (0-5); MONOCYTES % (AUTO) 8.5 % (4-12); Mean Corpuscular Hemoglobin 30.5 pg (27.0-35.0); Mean Corpuscular Volume 97.9 fL (81-100); NEUTROPHILS % (AUTO) 68.2 % (40-74); Platelet Count 192 bil/L (150-400)
[2016-06-20 20:59] LABS: TROPONIN T < 0.010 ug/L (0.0-0.011)
[2016-06-20 21:00] LABS: Magnesium 2.9 mg/dL (1.6-2.6)
[2016-06-20 21:56] VITALS: BP 106/62; PULSE 85; O2SAT 98
[2016-06-20 22:46] VITALS: BP 106/62; PULSE 85; RESP 18; O2SAT 98
[2016-07-07] MEDS ORDERED: BUPR100T15 PO (11:59)
[2016-07-07] MEDS ORDERED: CALC-984 PO (12:01)
[2016-07-07] MEDS ORDERED: CHOL500050 PO (12:01)
== END 2016-06-20 22:46 | disposition home or self-care (01) ==
LOC: SED 17:44
DX: R42 Dizziness and giddiness (principal); N18.5 Chronic kidney disease, stage 5; K21.9 Gastro-esophageal reflux disease without esophagitis; Z99.2 Dependence on renal dialysis; Z98.890 Other specified postprocedural states; Z87.891 Personal history of nicotine dependence; Z88.1 Allergy status to other antibiotic agents

== ENCOUNTER 2016-07-11 07:14 | Day surgery (SDC) | payer MEDICARE ==
[~2016-07-11] VITALS: Ht 157.5 cm; Wt 71.8 kg
[2016-07-11] VITALS (9 sets, daily range): BP systolic 83–108; BP diastolic 46–72; PULSE 64–104; RESP 14–17; O2SAT 96–100
[~2016-07-11 07:14] MED LIST changes: +BUPR100T15 PO; -CALC-846 PO; +CALC-984 PO; +CeFAZolin Inj 2 GM in IV Premix 1 EACH IV ONE; +Lactated Ringer's 1,000 ML IV ONE
[2016-07-11] MEDS ORDERED: fentaNYL-PF 50 mCg/mL 2 mL Inj ONE (07:15)
[2016-07-11] MEDS ORDERED: Glycopyrrolate 0.2 MG/ML 1mL Inj ONE (07:15)
[2016-07-11] MEDS ORDERED: Neostigmine 1 mg/mL 10 mL Inj ONE (07:15)
[2016-07-11] MEDS ORDERED: Cisatracurium 2,000 mCg/mL 10 mL Inj ONE (07:15)
[2016-07-11] MEDS ORDERED: Propofol 10,000 mCg/mL 20 mL Inj ONE (07:15)
[2016-07-11] MEDS ORDERED: Ondansetron 2 mg/mL 2 mL Inj ONE (07:15)
[2016-07-11] MEDS ORDERED: Lactated Ringer's 1,000 ML IV SCH (08:44)
[2016-07-11] MEDS ORDERED: Lactated Ringer's 500 ML IV PRN (08:44)
--- NOTE | 2016-07-11 08:44 | PCM.HPANE ---
Patient Data Surgeon Admitting Provider: Attending Provider:Ilya Ha MD Primary Care Physician:Chel Mitchell Other Provider:Cayden Nelson Anesthesia Reason for Visit End-Stage Renal Failure Ht/WT & BMI Height (Feet): 5 Height (Inches): 2 Weight (Kilograms): 71.8 Body Mass Index 29.00 Allergies Coded Allergies: gentamicin (Verified Allergy, Severe, SPECIFICIALLY LISTED FROM 08/17 CREAM...RASH, 06/20/16) Past Anesthesia History Anesthesia History: Denies:: Abnormal Airway, Anesthesia Reactions, Difficult Intubation, Fam Anesthesia Reaction, Fam Malignant Hypertherm, Malignant Hyperthermia Diabetes History Hx Diabetes?: No Current Bedside Blood Glucose: 67 MRSA MRSA: No Medications Home Meds Incl Beta Edel: No Reported Medications Cholecalciferol (Vitamin D3) (Vitamin D3)50,000 Unit Jqojezm06,000 Unit PO 4xweek 07/07/16 Calcium Carb/Magnesium Hydrox (Rolaids Chewable Tablet)550 Mg-110 Mg Tab.chew4 Each PO HS 07/07/16 Bupropion 100 Mg Pdyvgi233 Mg PO BID Ref 0 07/07/16 Acetaminophen 325 Mg Cuknpmv285-106 Mg PO Q4H PRN For Pain 05/24/16 Tramadol 50 Mg Ufnyjj57 Mg PO q6 hours PRN For Pain Ref 0 1ST LINE FOR PAIN. TAKE OXYCODONE 2ND LINE IF STILL HAVING PAIN IN 2 HRS. 05/24/16 Calcium Acetate 667 Mg Capsule2,001 Mg PO TID/meals and snacks 05/24/16 Docusate Sodium (Colace)100 Mg Jqhthop484-971 Mg PO DAILY Ref 0 05/24/16 oxyCODONE 5 Mg Capsule5-10 Mg PO Q4H PRN For Pain Ref 0 2ND LINE FOR PAIN. TAKES IF STILL HAVING PAIN 2 HRS POST TRAMADOL. 05/08/16 Fludrocortisone Acetate 0.1 Mg Tablet0.2 Mg PO prn PRN For Hypotension 05/08/16 Midodrine 5 Mg Tablet2 Tab PO TID PRN For Hypotension 10/18/14 Discontinued Reported Medications Cholecalciferol (Vitamin D3) (Vitamin D)50,000 Unit Dthtpot09,000 Unit PO Thur, Fri,Sa,Orozco 03/25/16 Calcium Carbonate/Mag Hydrox (Antacid Chewable Tablet)1 Each Tab.chew4 Each PO HS 10/18/14 History History of ENT Problems?: No HEENT History: Positive for:: Hearing Problem Denies:: Abnormal Airway Cataracts Difficult Intubation Dysphagia Glaucoma Sinus Problem TMJ Hx of Heart Problems?: Yes Cardiovascular History: Denies:: AICD Atrial Fibrillation Cardiac Surgery Chest Pain Congestive Heart Failure Edema Heart Murmur Hypertension (low blood pressure - takes midodrine) Irregular Heartbeat Pacemaker Thrombophlebitis Hx of Respiratory Problem?: Yes Respiratory History: Positive for:: Pneumonia (inpt for apr 2016- no problems now) Denies:: Asthma COPD Chest Surgery Cough Dyspnea Emphysema Hemoptysis Oxygen Administration Tuberculosis Use of C-PAP Machine Use of Inhalers / NEBS Hx Neurologic Problems?: No Neurological History: Denies:: Alzheimer's Disease CVA Dementia Dizziness Headaches Multiple Sclerosis Parkinson's Disease Seizures Hx of GI Problems?: Yes Gastrointestinal History: Denies:: Cirrhosis Diverticulitis Gall Bladder Disease Gastroesphageal Reflux Gastrointestinal Bleeding Heartburn Hepatitis Hiatal Hernia Rectal Bleeding Other GI Pertinent History: hx of gastric percy en y, panniculectomy Hx of Problems?: Yes Genitourinary History: Positive for:: HX of Hemodialysis (thru tunnel cath- aysha rao, neto) Denies:: Kidney Stones Urinary Tract Infection (hx of) Other Pertinent History: inpt for sepsis tunnel cath 04/2016- replaced. Peritoneal dialysis cath current admission plan. Pt has hx of renal cell ca and has had left nephrectomy. Is currrently on transplant list Female Hx: Denies:: Currently (hx btl) Endometriosis Pelvic Inflammatory Problems with Breasts? Skin History: Denies:: History Skin Disorders? Pressure Ulcers Hx Musculoskeletal Problems?: No Musculoskeletal History: Denies:: Fibromyalgia Joint Replacement Musculoskeletal Trauma Osteoarthritis Hx of Psycho/Social Problems?: Yes Psycho Social History: Denies:: Anxiety Bipolar Disorder Hx Depression Suicide Attempt Hx Surgeries?: No (ureter, c section, fistula, pd catheter, gastric bypass, left kidne) Hx Any Other Health Problems?: Yes Other History: Positive for:: Cancer (renal cell ca left) Hospitalization (sepsis 04/2016) Denies:: Endocrine Disease Thyroid Disease History Blood Transfusions: Positive for:: Accept Blood Products? Blood Transfusions Denies:: Blood Transfuse Reaction (please call ai palafox about what type- needs ultra filtered blood) Hx Diabetes: NoBedside Blood Glucose: 67 Hx Alcohol Use: NoAlcoholic Drinks Per Day: one drink every few monthsHx Substance Use: No Smoking Status: Former Smoker Have You Smoked inLast 12 mo: No Stop/Bang P-Blood Pressure: treated: No B- Body Mass Index > 35 kg/m2: No A- Age over 50: No N- Neck Large Circumference: No Risk Assessment Category Category 1A: Patient has history of documented sleep apnea, and HAS NOT received any narcotic, sedative or anesthesia administration during this stay. Category 1B: Patient has history of documented sleep apnea, and HAS received any narcotic , sedative or anesthesia administration during this stay Category 2: Patient has SUSPECTED Obstructive Sleep Apnea, and HAS received any narcotic , sedative or anesthesia administration during this stay. Category 3: Patient has SUSPECTED Obstructive Sleep Apnea and HAS NOT received narcotic, sedative or anesthesia administration during this stay. Category 4: Outpatient in Procedural Areas with known sleep apnea or who screen positive for High Risk via the STOP/BANG questionnaire. Exam Exam Vital Signs Vital Signs Date Time Temp Pulse Resp B/P Pulse Ox O2 Delivery O2 Flow Rate FiO2 07/11/16 07:40 35.9 70 17 83/52 99 Room Air General Appearance: Alert HEENT/AIRWAY: MP 2 Lungs: Clear to Auscultation Heart: Exam Unremarkable Meds/Labs/Diagnostics Admission Meds Current Medications Lactated Ringer's (Lr) 1,000 ml @ 120 mls/hr Q8H20M ONCE IV Last administered on 07/11/16t 07:16; Start 07/11/16 at 05:00; Stop 07/11/16 at 13:19 Bedside Blood Glucose: 67 Labs Test 07/11/16 08:09 Plan Impression Patient chart reviewed, patient interviewed and anesthestic plan with risks, benefits, and alternatives discussed, and informed consent obtained. NPO Status: 07/10/16 ASA Physical Status: ASA3 Severe Disease Anesthetic Support Modalities: Hemodynamic Monitoring Anesthetic Plan: GA Bene/Risks/Altern/Consents: Yes HP Complete Prior to Induction: Yes Lowell Harris MD Jul 11, 2016 08:44
[2016-07-11] MEDS ORDERED: EPHEDrine Sulfate 50 mg/mL Inj IVPUSH PRN (08:45)
[2016-07-11] MEDS ORDERED: Dexamethasone 4 mg/mL Inj IVPUSH PRN (08:45)
[2016-07-11] MEDS ORDERED: Ondansetron 2 mg/mL 2 mL Inj IVPUSH PRN (08:45)
[2016-07-11] MEDS ORDERED: HYDROmorphone 1 mg/mL Inj IVPUSH PRN (08:45)
[2016-07-11] MEDS ORDERED: MetoCLOpramide 5 mg/mL 2 mL Inj IVPUSH PRN (08:45)
[2016-07-11] MEDS ORDERED: Phenylephrine 10,000 mCg/mL Inj IVPUSH PRN (08:45)
[2016-07-11] MEDS ORDERED: 0.9% Sodium Chloride 500 ML IV ONE (08:50)
[2016-07-11] MEDS ORDERED: Bupivacaine-MPF 0.5% 30 mL Inj INFILTRATE ONE (09:13)
[2016-07-11] MEDS ORDERED: oxyCODONE-Acetamin 5-325 mg Tablet PO PRN (10:25)
[2016-07-11] MEDS: fentaNYL-PF 50 mCg/mL 2 mL Inj IVPUSH PRN ×2 (10:50→11:02)
--- NOTE | 2016-07-11 11:19 | PCM.ANEP2 ---
Post Anesthesia Evaluation ASA/CMS Post Anesthesia Date of Service: Jul 11, 2016 VS in Patient's Normal Range?: Yes Resp Stable; Airway Patent?: Yes CV Function & Hydration Stable: Yes Mental Status Recovered?: Yes Pain control Satisfactory?: Yes N/V Control Satisfactory?: Yes Early,Lowell Lin MD Jul 11, 2016 11:19
--- NOTE | 2016-07-11 11:19 | PCM.ANEP1 ---
Post Anesthesia Phase 1 PACU Phase 1 Assessment Vital Signs Vital Signs Date Time Temp Pulse Resp B/P Pulse Ox O2 Delivery O2 Flow Rate FiO2 07/11/16 11:10 84 15 105/67 97 07/11/16 11:01 82 14 95/59 96 07/11/16 10:50 85 17 100/69 100 07/11/16 10:45 89 16 100/69 100 Room Air 07/11/16 10:40 104 15 103/69 99 Simple Mask 10 07/11/16 10:35 36.9 99 14 108/72 99 Simple Mask 10 07/11/16 07:40 35.9 70 17 83/52 99 Room Air Anesthetic Administered: GA Level of Alertness: Awake, talking HANNA's with Equal Strength: Yes Pain: No Nausea or Vomiting: No Oxygen Delivery: Simple Mask Lungs: Clear to Auscultation Dermatome Level: Full Sensation Lowell Harris MD Jul 11, 2016 11:19
[2016-07-11] MEDS ORDERED: diphenhydrAMINE 25 mg Capsule PO ONE ×2 (11:29→11:40)
--- NOTE | 2016-07-11 22:56 | OP ---
[address] [address] OPERATIVE REPORT PATIENT: ARLENE ROMERO : 1975 MR#: [id number] ADMIT: 07/11/2016 JOB ID: [id number] DATE OF SURGERY: 07/11/2016 PREOPERATIVE DIAGNOSIS(ES): 1. End-stage renal failure. 2. History of nephrectomy for cancer. 3. Laparoscopic gastric bypass. 4. section. POSTOPERATIVE DIAGNOSIS(ES): 1. End-stage renal failure. 2. History of nephrectomy for cancer. 3. Laparoscopic gastric bypass. 4. section. 5. History of laparoscopic incisional hernia repair with mesh. OPERATION: 1. Diagnostic Laparoscopy 2. Extensive Laparoscopic Lysis of Adhesions 3. Laparoscopic Placement Peritoneal Dialysis Catheter SURGEON: Ilya Romero MD. RADIOLOGICAL DEFENSE OFFICER: CINDA Arcos INDICATIONS: The patient is a 40-year-old female who has had a nephrectomy for cancer and laparoscopic gastric bypass, section, abdominoplasty and panniculectomy. She has previously done peritoneal dialysis. She is on the kidney transplant list but would like to do peritoneal dialysis while she was waiting and not to have to do hemodialysis. After discussing options with the patient, it was elected to proceed with laparoscopy, lysis of adhesions and placement of the catheter. FINDINGS: She had omental adhesions to the anterior midline. When the adhesions were taken off it was very clear that she had also had a laparoscopic incisional hernia repair with mesh. The catheter was placed. The mesh was well incorporated. There was no exposed mesh. The catheter entered the abdominal cavity above the mesh. She had significant adhesions involving the omentum to the mesh. Some of the omentum had to be removed and this was submitted to Pathology because of her past history of malignancy. At the conclusion of the procedure, the catheter functioned well. There was excellent inflow and outflow. DESCRIPTION OF PROCEDURE: At the beginning and end of the operation, the SCOAP checklist was completed. A general endotracheal anesthetic was induced. Castro catheter was inserted and removed at the end of the operation. She had on pneumatic hose. She received preoperative antibiotics. Using ChloraPrep, she was prepped and draped in usual fashion. All trocar sites were infiltrated with 0.5% plain bupivacaine, as well as the left upper quadrant incision. Using a Veress needle through a left subcostal location, pneumoperitoneum was established, and then through the same incision a 5 mm optical port was placed. Two additional 5 mm ports were placed on the left lateral abdomen under direct visualization. Using scissors, cautery and blunt dissection, omental adhesions were taken down, but as described above in the process of doing this, I then was able to identify a broad sheet of intraperitoneal mesh to repair a previous hernia, but the mesh was well incorporated and there is no exposed mesh. Even after lysis of adhesions there was no exposed mesh. After freeing up all adhesions and removing some of the omentum that was sent to pathology, I then was able to katie the site for the internal cuff on the catheter which was to be just above the superior edge of the mesh. A medial right upper quadrant incision was made. Dissection was carried down with cautery to the rectus fascia, which I incised with cautery, and then an 8 mm port was placed through that site. I placed the catheter and the catheter exited through the falciform ligament, but the position was not right in the sense that it was the crural portion of the catheter was really at the top part of the pelvis. But I did bring it to an external exit site on the right abdominal wall and tested that there was no restriction of inflow, but poor outflow. I then re-established pneumoperitoneum and repositioned the entry site for the catheter so that it entered the abdominal cavity just above the mesh. In this position, the crural portion of the catheter was well within the pelvis and this time there was excellent inflow and outflow. The abdomen was reinflated and any residual fluid that I could identify was aspirated. The internal cuff was again confirmed to be just outside the peritoneum. The abdomen was deflated. The catheter was flushed with heparinized saline. Skin incisions were closed with subcuticular 4-0 Vicryl. Steri-Strips and Band-Aids were applied. The estimated blood loss was 10 cc. There were no apparent complications. The final sponge, needle and instrument counts were announced as correct, and the patient was returned to recovery in stable condition. Critical assistance provided by CINDA Arcos
--- NOTE | 2016-07-15 14:07 | PATH ---
SURGICAL PATHOLOGY Attending Physician:Lolita Landaverde CASE STATUS: Signed Out * Amended * PATIENT NAME: ARLENE ROMERO. PID: [id number] : 1975 DATE COLLECTED:07/11/2016 16:30 SPECIMEN: Omentum, Biopsy CLINICAL HISTORY: END STAGE RENAL FAILURE 1). OMENTUM FINAL DIAGNOSIS: 1.OMENTUM, BIOPSY:AMENDED DIAGNOSIS NO EVIDENCE OF NEOPLASM. OMENTUM WITH RARE BENIGN MESOTHELIAL INCLUSIONS. SEE COMMENT. ICD10: N18.9 NOTE: The morphologic appearance is consistent with the surgical impression of omentum adherent to mesh. Please note that the patient' s left nephrectomy from 03/2015 ([id number]) showed no evidence of malignancy. Immunohistochemical stains were performed to further characterize the glandular elements; however, based on morphology and immunophenotype, they are favored to represent benign mesothelial inclusions. This case was also reviewed by Dr. Diego Bush who agrees with this interpretation. PREVIOUS DIAGNOSIS:Rare atypical glandular elements present. Immunohistochemistry studies pending for further characterization; results will be reported as an addendum. GROSS DESCRIPTION: The specimen is received in formalin, labeled with the patient's name, sublabeled as omentum-hx renal cell CA and consists of multiple fragments of omentum (3.5 x 2.8 x 0.4 cm in aggregate). The omentum is najera-yellow rubbery lobular and homogenous. No nodules, masses or lesions are identified. Section code: (A, B) omentum. Specimen entirely submitted. 07/13/16 MICRO DESCRIPTION: Immunohistochemical stains were performed to further characterize the cells of interest in both blocks 1 and 2. Control stains showed appropriate reactivity. Results: Block 1 and block 9YpoDP2:Negative Cytokeratin MICHELINE:Positive MOC-31:Negative Calretinin:Positive WT-1:Positive PAX-8:Negative Interpretation: The cells of interest are negative for BerEP4, MOC-31 and PAX-8. The cells are positive for WT-1, Calretinin, and Cytokeratin MICHELINE, consistent with mesothelial cells. There is no immunophenotypic evidence of a neoplastic cell population. This test was developed and its performance characteristics determined by [facility]. It has not been cleared or approved by the U. S. Food and Drug Administration. The FDA has determined that such clearance or approval is not necessary. This test is used for clinical purposes. It should not be regarded as investigational or for research. ICD-9 CODES: CPT CODES: 1: 06346, 80185, 83553, 59048, 80223, 32482, 47582, 98833, 83892, 42633, 45707 AMENDMENT(S): Amended: 07/20/2016 by Saima Vargas Reason:Amended Diagnosis Previous Signout Date: 07/15/2016 Electronically Signed Out Gloria Solano MD [facility] [address], [place] [address] Technical component performed at [facility], [facility] [address], [place], [address]
== END 2016-07-11 23:59 | disposition home or self-care (01) ==
LOC: SAS 07:14
PROVIDERS: ATTEND Surgery
DX: N18.6 End stage renal disease (principal); E83.51 Hypocalcemia; Z85.528 Personal history of other malignant neoplasm of kidney; Z90.5 Acquired absence of kidney; Z98.84 Bariatric surgery status
CPT/HCPCS: 49324; 84132; J0690; J2405; J2710; J3010; J7030; J7120

== ENCOUNTER 2016-08-20 18:07 | Emergency (ER) | payer MEDICARE ==
[~2016-08-20] VITALS: Ht 157.5 cm; Wt 71.0 kg
[~2016-08-20 18:07] MED LIST changes: -CeFAZolin Inj 2 GM in IV Premix 1 EACH IV ONE; -Lactated Ringer's 1,000 ML IV ONE
[2016-08-20 18:11] VITALS: BP 130/89; PULSE 83; RESP 18; O2SAT 98
--- NOTE | 2016-08-20 18:47 | ED.REPORT ---
HPI-General Illness Date of Service August 20, 2016 ED Provider: Dr. Campoverde Pt is a 40 y/o female w/ a hx of ESRD on PD and on transplant list, anemia, presenting to the ED c/o MCKEON and hypertension onset today. The patient felt hypotensive this morning after feeling generally weak and took midodrine at 04: 00 which she only takes when she is symptomatic. She took her BP again and found her BP to be 160 systolic. She later experienced a sudden onset L-sided headache and took her BP again and found it to be 174/99. She states her BP is normally 100-120 systolic. She does not normally get headaches but last Monday experienced a somewhat similar headache which resolved with sleep. Her MCKEON at current time is located diffusely frontal and is described as constricting and the worst MCKEON of her life rated 10-15/10. She c/o associated photophobia, nausea , vomiting. Pt denies any numbness, weakness, tingling, speech change, vision change, back pain, abdominal pain, CP, neck pain. She has no hx of HTN or DM. Nursing Notes Stated Complaint: HIGH BLOOD PRESSURE Chief Complaint: General Complaint Nursing Notes Reviewed: Yes Allergies: Coded Allergies: gentamicin (Verified Allergy, Severe, SPECIFICIALLY LISTED FROM 08/17 CREAM...RASH, 06/20/16) Scheduled Bupropion (Bupropion) 100 Mg Tablet 100 MG PO BID Calcium Acetate (Calcium Acetate) 667 Mg Capsule 2,001 MG PO TID/meals and snacks Calcium Carb/Magnesium Hydrox (Rolaids Chewable Tablet) 550 Mg-110 Mg Tab.chew 4 EACH PO HS Cholecalciferol (Vitamin D3) (Vitamin D3) 50,000 Unit Capsule 50,000 UNIT PO 4xweek Docusate Sodium (Colace) 100 Mg Capsule 200-300 MG PO DAILY Scheduled PRN Acetaminophen (Acetaminophen) 325 Mg Capsule 325-650 MG PO Q4H PRN PRN For Pain Fludrocortisone Acetate (Fludrocortisone Acetate) 0.1 Mg Tablet 0.2 MG PO prn PRN PRN For Hypotension Midodrine (Midodrine) 5 Mg Tablet 2 TAB PO TID PRN PRN For Hypotension Tramadol (Tramadol) 50 Mg Tablet 50 MG PO q6 hours PRN PRN For Pain 1ST LINE FOR PAIN. TAKE OXYCODONE 2ND LINE IF STILL HAVING PAIN IN 2 HRS. oxyCODONE (oxyCODONE) 5 Mg Capsule 5-10 MG PO Q4H PRN PRN For Pain 2ND LINE FOR PAIN. TAKES IF STILL HAVING PAIN 2 HRS POST TRAMADOL. General Time Seen by MD: 18:47 Chief Complaint Other (MCKEON) Hx Obtained From: Patient Arrived By: Walk-in Sudden in Onset?: Yes Onset Occurred: 1 - 4 hours ago Symptom Duration: Since onset Location: : Head Quality: Aching Radiation: : Does not radiate Severity: Current: Severe Severity: Maximum: Severe Similar Sx Previous: No Past Medical History Past Medical History Notes: PCP: Dr. Hines in [place] Wool Broker: Dr. Mcallister Patient underwent left nephrectomy on 04/16 for renal cell carcinoma [facility] - Dr. Spear Past Medical History End-stage renal disease, thought due to ureteral reflux in childhood, on nightly peritoneal dialysis (currently as of 05/13 on hemodialysis waiting for pannulectomy site to heal to resume PD) followed by Dr. Ray. Chronic anemia due to renal failure. History of peritonitis associated with peritoneal dialysis. 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 Right internal jugular vein tunneled hemodialysis catheter placement by Dr. Parham on 04/15/15. Gastric bypass ([facility]) for obesity, March 2014. Gastroesophageal reflux disease. Chronic constipation. Hearing loss (uses hearing aids). Past Surgical History left nephrectomy on 04/16 for renal cell carcinoma Peritoneal dialysis catheter placement. Left upper extremity fistula. 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 section x2. Uterine ablation for bleeding. Pannulectomy Current dialysis catheter R chest (05/13) Reports: Reports: Gastric bypass, Tubal ligation Family History Mother - DM Maternal grandmother - HTN Paternal gradnmother - DM Smoking History Former Smoker Social History Lives with family, and teenage children Alcohol Use: Denies alcohol use Drug Use: Denies drug use Other Social History: Good social support, Frequent ED visitor, , Local resident Occupation Unknown Ambulatory Status Independent Review of Systems Full Review of Systems Constitutional: Reports: Weakness - generalized, Denies: Chills, Fever Eyes: Reports: Photophobia, Denies: Visual loss bilateral Cardiovascular: Denies: Chest pain, Dyspnea on exertion GI: Reports: Nausea, Vomiting, Denies: Abdominal pain Neurologic: Reports: Headache, Denies: Change LOC, Confusion, Focal weakness, Numbness, Seizure, Slurred speech, Spinning sensation, Syncope, Unable to speak, Vision change Complete sys rev & neg: except as marked. Physical Exam Vital Signs Vital Signs Date Time Temp Pulse Resp B/P Pulse Ox O2 Delivery O2 Flow Rate FiO2 08/20/16 23:32 36.6 74 16 122/81 94 Room Air 08/20/16 22:23 61 18 131/87 94 Room Air 08/20/16 18:11 36.4 83 18 130/89 98 Room Air Initial VS: Reviewed, Vital signs normal Head / Eyes: Atraumatic, Normocephalic, PERRL ENT: Mucous membranes moist, Conjunctiva normal, No scleral icterus Respiratory: Breath sounds normal, Clear to auscultation, No respiratory distress Cardiovascular: Regular rate & rhythm, Heart sounds normal, Intact distal pulses Abdomen / GI: Soft, Non-tender, No guarding, No rebound, No distention Extremities: Vascular intact, Neuro intact, No swelling, No tenderness Skin: Warm, Dry, No cyanosis Psychiatric: Mood/affect normal, Behavior normal, Normal thought content General/Constitutional: Awake, Alert, Cooperative, Not toxic appearing Distress / Hydration: Positive: Distress moderate Neurologic: Oriented X3, Speech NL, No motor deficits, No sensory deficits, CN II - XII intact, Cerebellar NL, Memory NL Interpretation & Diagnostics Lab Results Interpretation Result Diagram: 08/20/16193408/20/161934 Test 08/20/16 19:35 White Blood Count 7.0th/mm3 (3.8-10.1) Red Blood Count 4.11mil/mm3 (3.90-5.20) Hemoglobin 12.1g/dL (12.0-15.6) Hematocrit 37.1% (35.0-46.0) Mean Corpuscular Volume 90.3fL (81-100) Mean Corpuscular Hemoglobin 29.4pg (27.0-35.0) Mean Corpuscular Hemoglobin Concent 32.6% (32.0-37.0) Red Cell Distribution Width 14.9% (12.3-15.4) Platelet Count 212bil/L (150-400) Neutrophils (%) (Auto) 69.1% (40-74) Lymphocytes (%) (Auto) 19.2% (14-46) Monocytes (%) (Auto) 7.2% (4-12) Eosinophils (%) (Auto) 3.6% (0-5) Basophils (%) (Auto) 0.3% (0-3) Erythrocyte Sedimentation Rate 20mm/hr (0-32) Sodium Level 140mEq/L (134-144) Potassium Level 4.1mEq/L (3.5-5.2) Chloride Level 95mEq/L (97-108) Carbon Dioxide Level 21mmol/L (18-29) Blood Urea Nitrogen 79mg/dL (6-20) Creatinine 11.26mg/dL (0.57-1.00) Estimat Glomerular Filtration Rate 5mL/min (>59) Glucose Level 69mg/dL (60-99) Calcium Level 8.7mg/dL (8.5-10.1) C-Reactive Protein 0.2mg/dL (0.0-0.5) Hold Phillips Top Tube Received (Received) CT Head Interpretation IMPRESSION: 1. No acute intracranial abnormality. 2. Bilateral basal ganglia calcifications, possibly due to medication related or chronic metabolic effects. Dictated by: Mila Mcallister M.D. on 08/20/2016 at 20:25 Approved by: Mila Mcallister M.D. on 08/20/2016 at 20:26 Study: Head CT no contrast Interpretation / Wet Read by: Interpret - Radiologist Re-Eval/Medical Decision Med Decision/Clinical Course 40-year-old female with a history of end-stage renal disease on peritoneal dialysis presenting with the worst headache of her life after taking midodrine for symptomatic (but not confirmed by blood pressure reading) hypotension. She does not have any neurologic abnormalities and has no history of trauma to her head. Her blood pressure is not excessively elevated here. CT of the head showed no acute abnormalities. Her labs showed the expected renal failure. She was treated with 1 L of normal saline, Tylenol 1 g, Decadron, Zofran, Phenergan. Her headache came down from a 10 to about 9 after taking these medications. Patient states that she is unable to take NSAIDs because of her kidney disease. I gave her sumatriptan, and [place] and her headache resolved shortly thereafter. Patient requested discharge with plans to follow-up with her doctor. Time of Eval: 21:27 Re-Evaluation/Progress Note: Pt rechecked. In no visible distress. Reports MCKEON decreased to 9/10 with medication but still persistent. Time of Eval: 22:57 Re-Evaluation/Progress Note: Pt rechecked. MCKEON almost completely resolved. Wanting to go home. Informed pt of plan for treatment. Pt understands and agrees with plan for treatment. F/U instructions and RTER warnings given. All questions addressed. Counseled Regarding: Diagnosis, Need for follow-up, When/why to return to ED Discharge & Departure Primary Impression: Headache Headache type: unspecified Headache chronicity pattern: acute headache Intractability: not intractable Qualified Code: R51 - Headache Additional Impression: End stage renal disease Disposition: Home Discharge Condition All VS Reviewed: Yes Condition: Stable Patient Instructions: Acute Headache (ED) Additional Instructions: Your labs other than kidney function markers were normal. The head CT showed no abnormalities other than calcifications which are chronic. Your blood pressure was normal while you were here. Return to the emergency department for severe headache, vision changes, speech changes, one-sided numbness or weakness, fever, confusion, chest pain, trouble breathing, or for other concerning symptoms. Follow-up with your primary care doctor next week. Discuss headaches and blood pressure medications with them. Referrals: Chel Mitchell (PCP) Fawad Attestation Portions of this note were transcribed by Eddie Muñoz. I, Dr. Sanford personally performed the history, physical exam and medical decision-making; I reviewed and confirmed the accuracy of the information in the transcribed note. Signed by Fawad Gonzalez, 08/20/16 - 1999 copies to: Chel Mitchell Gary R DO August 20, 2016 18:47 EDDIE MUÑOZ August 20, 2016 18:56
[2016-08-20] MEDS ORDERED: 0.9% Sodium Chloride 1,000 ML IV ONE (18:58)
[2016-08-20] MEDS ORDERED: Ondansetron 2 mg/mL 2 mL Inj IVPUSH ONE (19:00)
[2016-08-20] MEDS ORDERED: Promethazine Inj 25 MG in 0.9% Sodium Chloride-Pha MIX 100 ML IV ONE (19:00)
[2016-08-20] MEDS ORDERED: Dexamethasone 10 mg/mL Inj IVPUSH ONE (19:00)
[2016-08-20 19:50] LABS: BASOPHILS % (AUTO) 0.3 % (0-3); EOSINOPHILS % (AUTO) 3.6 % (0-5); MONOCYTES % (AUTO) 7.2 % (4-12); Mean Corpuscular Hemoglobin 29.4 pg (27.0-35.0); Mean Corpuscular Volume 90.3 fL (81-100); NEUTROPHILS % (AUTO) 69.1 % (40-74); Platelet Count 212 bil/L (150-400)
[2016-08-20 20:08] LABS: ERYTHROCYTE SEDIMENTATION RATE 20 mm/hr (0-32)
--- NOTE | 2016-08-20 20:28 | DRSVH ---
PROCEDURE: CT BRAIN WITHOUT CONTRAST ([id number]) INDICATIONS: worst headache of life, no defecits TECHNIQUE: Noncontrast 4.5 mm thick angled axial sections acquired from the foramen magnum to the vertex, with c oronal reformats. COMPARISON: None. FINDINGS: Image quality: Excellent. CSF spaces: Basal cisterns are patent. No extra-axial fluid collections. Ventricles are normal in size and shape. Brain: No midline shift. Bilateral basal ganglia calcifications are present. No intracranial masses or hemorrhage. Dubon-white matter interface is normal. Skull and face: Calvarium and visualized facial bones are intact, without suspicious lesions. Sinuses: Visualized sinuses and mastoids are clear. IMPRESSION: 1. No acute intracranial abnormality. 2. Bilateral basal ganglia calcifications, possibly due to medication related or chronic metabolic ef fects. Dictated by: Mila Mcallister M.D. on 08/20/2016 at 20:25 Approved by: Mila Mcallister M.D. on 08/20/2016 at 20:26
[2016-08-20] MEDS ORDERED: HYDROcodone-APAP 10-325 mg PO ONE (21:30)
[2016-08-20 22:23] VITALS: BP 131/87; PULSE 61; RESP 18; O2SAT 94
[2016-08-20 23:32] VITALS: BP 122/81; PULSE 74; RESP 16; O2SAT 94
== END 2016-08-20 23:32 | disposition home or self-care (01) ==
LOC: SED 18:07
DX: N18.6 End stage renal disease (principal); K21.9 Gastro-esophageal reflux disease without esophagitis; R03.0 Elevated blood-pressure reading, without diagnosis of hypertension; D64.9 Anemia, unspecified; Z87.891 Personal history of nicotine dependence; Z99.2 Dependence on renal dialysis; Z88.1 Allergy status to other antibiotic agents
CPT/HCPCS: 36415; 70450; 80048; 85025; 85651; 86140; 96361; 96372; 96374; 96375; 99285; J1100; J1200; J2405; J2550; J3030; J7030

== ENCOUNTER 2016-08-30 00:35 | Day surgery (SDC) | payer MEDICARE ==
[~2016-08-30] VITALS: Ht 157.5 cm; Wt 76.0 kg
[2016-08-30 08:58] VITALS: BP 123/84; PULSE 68; RESP 18; O2SAT 97
--- NOTE | 2016-08-30 09:46 | PCM.PROC ---
Procedure Note Date of Service: Aug 30, 2016 Pre Procedure Diagnosis: Removal of a tunneled L IJ dialysis catheter Post Procedure Diagnosis: Same Procedure: Removal of a tunneled dialysis catheter Provider and Wind Turbine Engineer: Valeriano JERNIGAN Indication for Procedure: Using PD catheter for peritoneal dialysis Procedural Analgesia: 15 ml 1%xylocaine Procedure Details: After informed consent was obtained from the patient she was placed in a supine position with the head of the bed elevated about 30. The area over the top of the left internal jugular dialysis catheter was palpated and was agitated to break up the adhesions. The area at the exit site was prepped and draped in a sterile manner. About 10 mL slow flow 1% Xylocaine was locally infiltrated at the exit site of the dialysis catheter. A further 5 mL 1% Xylocaine was locally infiltrated in the supraclavicular area near the cuff. Once anesthesia was obtained from the exit site of the dialysis catheter was explored with a straight forceps and by blunt dissection the adhesions were broken up. Once his complete the tunnel was agitated to break up any further adhesions. 4 x 4 was placed over the exit site and gentle traction was applied to the to observe the catheter and the catheter was removed without complication. Pressure was immediately applied over the insertion site of the left internal jugular vein and the exit site. This pressure was continued for approximately 7 minutes and was subsequently replaced with a sandbag. The exit site wounds dressed with a 2 x 2. Antibiotic ointment and a small plastic dressing on top of this. Patient was observed for the next 30 minutes and vital signs were stable and was subsequently discharged. She is to follow up with the peritoneal dialysis nurse in the next week. Patient tolerated the procedure well. Post procedure instructions were given to the patient. Valeriano Argueta DO Aug 30, 2016 09:46
--- NOTE | 2016-08-30 11:01 | NUR ---
tunneled dialysis cath removal performed by Dr Argueta pt tolerated well dc instructions provided and reviewed with pt and spouse; both verbalize understanding and deny questions/concerns
== END 2016-08-30 23:59 | disposition home or self-care (01) ==
LOC: MOCO 00:35
PROVIDERS: ATTEND Internal Medicine Nephrology
DX: N18.6 End stage renal disease (principal); E83.51 Hypocalcemia; Z85.528 Personal history of other malignant neoplasm of kidney; Z99.2 Dependence on renal dialysis